=== PATIENT | female | born 1970 | race Caucasian/White ===

== ENCOUNTER 2016-08-17 07:39 | Inpatient (IN) | payer SELFPAY ==
[~2016-08-17] VITALS: Ht 167.6 cm; Wt 142.6 kg
[2016-08-17] VITALS (19 sets, daily range): BP systolic 126–242; BP diastolic 70–110; PULSE 63–120; RESP 20–28; TEMP 97–98.1; O2SAT 94–100
[~2016-08-17 07:39] MED LIST: LABE200T2 PO; NIFE1TAB85 PO; PREN0.01 PO
--- NOTE | 2016-08-17 07:53 | PD ---
HPI Chief Complaint: unresponsive in respiratory distress Time Seen by Provider: 07:43 Travel History International Travel<30 days: No Contact w/Intl Traveler<30days: No (unknown unknown) Traveled to known affect area: No (unknown) History of Present Illness HPI This is a 46-year-old female with unknown medical history other then the paramedics report inhaler and blood pressure medicine at home, who presents intubated after she was found in respiratory distress with decreased level of consciousness. When paramedics arrived they found the patient with O2 sats in the 40s. He reports the patient was obtunded and stated she had a GCS of 13. At that point she was not cooperative with oxygen or breathing treatments and they elected to intubate her. They report her end-tidal CO2 on initial intubation was above 50. After intubation her saturations increased into the mid 90s and her end-tidal CO2 has decreased to 40. No further history could be obtained. There was apparently a roommate in the house who stated that she has not been the same since she lost a child in the past. [facility] Social History Tobacco Use: Yes Allergies-Medications (Allergen,Severity, Reaction): Coded Allergies: UNOBTAINABLE (Unverified , 08/17/16) INTUBATED Review of Systems ROS Limitations: Clinical Condition, Intubated Physical Exam Narrative GENERAL: Obese disheveled-looking female who is intubated. SKIN: Focused skin assessment warm/dry. HEAD: Atraumatic. Normocephalic. EYES:No scleral icterus. No injection or drainage. ENT: No nasal bleeding or discharge. Mucous membranes pink and moist. ET tube in place. Respiratory therapist and myself assessed breathing and raise the tube to 24 cm. NECK: Trachea midline. No JVD. CARDIOVASCULAR: Regular rate and rhythm. No murmur appreciated. RESPIRATORY: Intubated. On the ventilator there were equal breath sounds bilaterally. GASTROINTESTINAL: Abdomen soft, obese, nondistended. MUSCULOSKELETAL: No obvious deformities. No clubbing. No cyanosis. No edema. NEUROLOGICAL: Intubated and sedated. Data Data Last Documented VS Vital Signs Date Time Temp Pulse Resp B/P Pulse Ox O2 Delivery O2 Flow Rate FiO2 08/17/16 08:28 96 Ventilator 08/17/16 08:13 119 20 242/110 08/17/16 07:45 100 08/17/16 07:44 97.0 Orders Complete Blood Count With Diff (08/17/16 07:54) Comprehensive Metabolic Panel (08/17/16 07:54) B-Type Natriuretic Peptide (08/17/16 07:54) Ckmb (Isoenzyme) Profile (08/17/16 07:54) Troponin I (08/17/16 07:54) Arterial Blood Gas (Abg) (08/17/16 07:54) Urinalysis - C+S If Indicated (08/17/16 07:54) Iv Access Insert/Monitor (08/17/16 07:54) Ecg Monitoring (08/17/16 07:54) Oximetry (08/17/16 07:54) Oxygen Administration (08/17/16 07:54) Chest, Single Ap (08/17/16 07:54) Sodium Chloride 0.9% Flush (Ns Flush) (08/17/16 08:00) Ct Brain W/O Iv Contrast(Rout) (08/17/16 07:54) Urinary Catheter Insert/Apply (08/17/16 07:54) Ed Urine Pregnancytest Poc (08/17/16 07:54) Drug Screen, Random Urine (08/17/16 07:54) Alcohol (Ethanol) (08/17/16 07:54) Salicylates (Aspirin) (08/17/16 07:54) Tylenol (Acetaminophen) (08/17/16 07:54) Propofol 1000 Mg/100 Ml Inj (Diprivan 10 (08/17/16 08:00) ^ Infusion (08/17/16 07:54) RASS (08/17/16 07:54) Neurological Rass Scale DIVYA.Q2H (08/17/16 07:54) Urine Culture (08/17/16 08:00) Esmolol Drip Inj Premix (Brevibloc Drip (08/17/16 09:30) CKMB (08/17/16 07:55) CKMB% (08/17/16 07:55) Labetalol Inj (Trandate Inj) (08/17/16 09:45) Labs Laboratory Tests Test 08/17/16 08/17/16 08/17/16 07:55 08:00 08:30 White Blood Count 15.2 TH/MM3 Red Blood Count 6.14 MIL/MM3 Hemoglobin 18.1 GM/DL Hematocrit 55.6 % Mean Corpuscular Volume 90.6 FL Mean Corpuscular Hemoglobin 29.6 PG Mean Corpuscular Hemoglobin 32.6 % Concent Red Cell Distribution Width 14.8 % Platelet Count 196 TH/MM3 Mean Platelet Volume 11.8 FL Neutrophils (%) (Auto) 70.0 % Lymphocytes (%) (Auto) 22.8 % Monocytes (%) (Auto) 4.5 % Eosinophils (%) (Auto) 1.7 % Basophils (%) (Auto) 1.0 % Neutrophils # (Auto) 10.6 TH/MM3 Lymphocytes # (Auto) 3.5 TH/MM3 Monocytes # (Auto) 0.7 TH/MM3 Eosinophils # (Auto) 0.3 TH/MM3 Basophils # (Auto) 0.1 TH/MM3 CBC Comment DIFF FINAL Differential Comment Sodium Level 139 MEQ/L Potassium Level 5.4 MEQ/L Chloride Level 106 MEQ/L Carbon Dioxide Level 21.2 MEQ/L Anion Gap 12 MEQ/L Blood Urea Nitrogen 37 MG/DL Creatinine 2.19 MG/DL Estimat Glomerular Filtration 24 ML/MIN Rate Random Glucose 290 MG/DL Calcium Level 10.1 MG/DL Total Bilirubin 0.5 MG/DL Aspartate Amino Transf 42 U/L (AST/SGOT) Alanine Aminotransferase 27 U/L (ALT/SGPT) Alkaline Phosphatase 101 U/L Total Creatine Kinase 117 U/L Creatine Kinase MB 1.3 NG/ML Troponin I 0.02 NG/ML B-Type Natriuretic Peptide 286 PG/ML Total Protein 7.8 GM/DL Albumin 3.7 GM/DL Salicylates Level LESS THAN 1.7 MG/DL Acetaminophen Level LESS THAN 2.0 MCG/ML Ethyl Alcohol Level LESS THAN 3 MG/DL Urine Color YELLOW Urine Turbidity HAZY Urine pH 8.0 Urine Specific [place] 1.021 Urine Protein GREATER THAN 600 mg/dL Urine Glucose (UA) 300 mg/dL Urine Ketones NEG mg/dL Urine Occult Blood MOD Urine Nitrite NEG Urine Bilirubin NEG Urine Urobilinogen LESS THAN 2.0 MG/DL Urine Leukocyte Esterase NEG Urine RBC 28 /hpf Urine WBC 18 /hpf Urine Squamous Epithelial 3 /hpf Cells Urine Transitional Epithelial <1 /hpf Cells Urine Bacteria RARE /hpf Microscopic Urinalysis Comment CULTURE INDICATED Urine Opiates Screen NEG Urine Barbiturates Screen NEG Urine Amphetamines Screen NEG Urine Benzodiazepines Screen NEG Urine Cocaine Screen NEG Urine Cannabinoids Screen NEG Blood Gas Puncture Site RT RADIAL Blood Gas Patient Temperature 98.6 Blood Gas HCO3 24 mmol/L Blood Gas Base Excess -4.6 mmol/L Blood Gas Oxygen Saturation 93 % Arterial Blood pH 7.12 Arterial Blood Partial 76 mmHg Pressure CO2 Arterial Blood Partial 108 mmHG Pressure O2 Arterial Blood Oxygen Content 24.9 Vol % Arterial Blood 2.1 % Carboxyhemoglobin Arterial Blood Methemoglobin 0.7 % Blood Gas Hemoglobin 19.0 G/DL Oxygen Delivery Device VENTILATOR Blood Gas Ventilator Setting AC14/500/PEEP8 Blood Gas Inspired Oxygen 100 % MDM Medical Decision Making Medical Screen Exam Complete: Yes Emergency Medical Condition: Yes Differential Diagnosis COPD exacerbation versus pneumonia versus overdose versus intracranial insult Narrative Course 46-year-old female brought in after found unresponsive at home. The patient was found to have an O2 sat in the 40s according to paramedics. She was not following commands and was intubated prior to arrival. We are having difficulty obtaining a blood pressure. A arterial line was placed which showed a blood pressure of 333/185. Esmolol order was initiated. She was given Trandate 20 mg I V times one dose while in CT scan. CT scan reveals a large posterior fossa bleed. Dr. Tam Booker, survey manager, was present in the ER when she went to the CT scan. He will take her emergently up to the [facility]. There is a call out to Dr. Bruce Garza, on-call neurosurgeon. The patient is in critical condition at this time. I discussed the findings on CT scan with the and brother. I told them that she is very sick and her prognosis at this point is poor. Critical Care Narrative Aggregate critical care time was 60 minutes. Time to perform other separately billable procedures was not included in the critical care time. My time did not include minutes spent treating any other patients simultaneously or on activities that did not directly contribute to the patient's treatment. The services I provided to this patient were to treat and/or prevent clinically significant deterioration that could result in: I provided critical care services requiring my management, as noted below: Chart data review, documentation time, medication orders and management, vital sign assessments/reviewing monitor data, ordering and reviewing lab tests, ordering and interpreting/reviewing x-rays and diagnostic studies, care of the patient and discussion of the patient with the admitting physicians. Diagnosis Primary Impression: large posterior fossa hemorrhage Additional Impressions: Hypertensive crisis [id number] kidney injury Hyperglycemia Admitting Information Admitting Physician Requests: Admit Harley Paredes MD August 17, 2016 07:53
[2016-08-17] MEDS ORDERED: PROPOFOL 1000 MG/100 ML INJ 100 ML IV SCH (08:00)
[2016-08-17 08:27] LABS: AUTOMATED NEUTROPHIL # 10.6 TH/MM3 (1.8-7.7); BASOPHIL # 0.1 TH/MM3 (0-0.2); EOSINOPHIL # 0.3 TH/MM3 (0-0.4); EOSINOPHIL % 1.7 % (0.0-4.0); HEMATOCRIT 55.6 % (35.0-46.0); HEMO FLAGS DIFF FINAL; LYMPH % 22.8 % (9.0-44.0); LYMPHOCYTE # 3.5 TH/MM3 (1.0-4.8); MEAN CELL VOLUME 90.6 FL (80.0-100.0); MEAN CORPUSCULAR HEMOGLOBIN 29.6 PG (27.0-34.0); MEAN CORPUSCULAR HGB CONC 32.6 % (32.0-36.0); MONO % 4.5 % (0.0-8.0); PLATELET COUNT 196 TH/MM3 (150-450); RED BLOOD COUNT 6.14 MIL/MM3 (4.00-5.30); RED CELL DISTRIBUTION WIDTH 14.8 % (11.6-17.2); WHITE BLOOD COUNT 15.2 TH/MM3 (4.0-11.0)
--- NOTE | 2016-08-17 08:45 | RADRPT ---
EXAM DATE/TIME: 08/17/2016 08:19 [facility] COMPARISON: No previous studies available for comparison. INDICATIONS : Short of breath. Evaluate tube placement. MEDICAL HISTORY : Unobtainable. SURGICAL HISTORY : Unobtainable. ENCOUNTER: Initial ACUITY: 1 day PAIN SCORE: Non-responsive. LOCATION: Bilateral chest FINDINGS: Portable AP view the chest demonstrates a normal-sized cardiac silhouette. Endotracheal tube is at th e aortic knob level measuring approximately 4 cm from the jorge. There is severe dense airspace cons olidation in the right mid and lower lung zone. No pleural effusion or pneumothorax is identified. Th ere may be mild interstitial or air space opacity in the upper lung zones bilaterally. Bones and soft tissues demonstrate no acute abnormality. CONCLUSION: Severe air space consolidation in the right lower lung zone with possible mild airspace opacity in th e upper lung zones bilaterally. This could represent an infectious process in the appropriate clinica l setting. Alternately, aspiration could have this appearance. Endotracheal tube is in appropriate po sition. Tyshawn Witt MD on August 17, 2016 at 8:36 Board Certified Radiologist. This report was verified electronically.
[2016-08-17 08:55] LABS: AMPHETAMINE, URINE NEG (NEG); BARBITURATES, URINE NEG (NEG); COCAINE, URINE NEG (NEG)
[2016-08-17 09:05] LABS: BACTERIA, URINE RARE /hpf; BLOOD, URINE MOD (NEG); GLUCOSE,URINE 300 mg/dL (NEG); KETONE, URINE NEG (NEG); NITRITE,URINE NEG (NEG); SQUAMOUS EPITHELIAL CELL URINE 3 /hpf (0-5); TRANSITIONAL EPI CELLS, URINE <1 /hpf; URINE COLOR YELLOW (YELLW/STRAW)
[2016-08-17 09:10] LABS: COMMENT (UR) CULTURE INDICATED; CULTURE IF INDICATED CULTURE INDICATED
[2016-08-17 09:22] LABS: ALKALINE PHOSPHATASE 101 U/L (45-117); ALT (GPT) 27 U/L (10-53); ANION GAP 12 MEQ/L (5-15); AST (GOT) 42 U/L (15-37); BICARBONATE 21.2 MEQ/L (21.0-32.0); BLOOD UREA NITROGEN 37 MG/DL (7-18); CHLORIDE 106 MEQ/L (98-107); CREATINE KINASE 117 U/L (26-192); GLOMERULAR FILTRATION RATE 24 ML/MIN (>89); SODIUM (NA) 139 MEQ/L (136-145); TOTAL BILIRUBIN ADULT 0.5 MG/DL (0.2-1.0)
[2016-08-17 09:26] LABS: ACETAMINOPHEN LESS THAN 2.0 MCG/ML (10.0-30.0); POTASSIUM 5.4 MEQ/L (3.5-5.1)
[2016-08-17 09:28] LABS: BLOOD GAS BASE EXCESS -4.6 mmol/L (-2-2); BLOOD GAS CARBOXYHEMOGLOBIN 2.1 % (0-4); BLOOD GAS HCO3 24 mmol/L (22-26); BLOOD GAS METHEMOGLOBIN 0.7 % (0-2); BLOOD GAS O2 HGB SATURATION 93 % (90-100); BLOOD GAS OXYGEN CONTENT 24.9 Vol % (12.0-20.0); BLOOD GAS PCO2 76 mmHg (38-42); BLOOD GAS PO2 108 mmHG (61-120); CRITICAL VALUE YES; OXYGEN DEVICE VENTILATOR; TEMP CORR TO 98.6
[2016-08-17 09:29] LABS: DRAW SITE RT RADIAL; FIO2 100 %; NUMBER OF ARTERIAL PUNCTURES 1; STAT YES; ULNAR PULSE PRESENT; VENT SETTINGS AC14/500/PEEP8
[2016-08-17] MEDS ORDERED: ESMOLOL DRIP INJ PREMIX 250 ML IV SCH (09:30)
[2016-08-17 09:38] LABS: CKMB 1.3 NG/ML (0.5-3.6)
[2016-08-17] MEDS ORDERED: LABETALOL HCL 100 MG/20 ML VIAL IV PUSH ONE ×2 (09:45→10:45)
[2016-08-17] MEDS: niCARdipine INJ 25 MG in SODIUM CHLOR 0.9% 250 ML INJ 250 ML IV SCH ×4 (10:00→21:20)
--- NOTE | 2016-08-17 10:01 | RADRPT ---
EXAM DATE/TIME: 08/17/2016 09:45 [facility] COMPARISON: No previous studies available for comparison. INDICATIONS : Altered mental status, hypoxia. RADIATION DOSE: 54.17 CTDIvol (mGy) MEDICAL HISTORY : Non-responsive. SURGICAL HISTORY : Non-responsive. ENCOUNTER: Initial ACUITY: 1 day PAIN SCALE: Non-responsive LOCATION: Bilateral head TECHNIQUE: Multiple contiguous axial images were obtained of the head. Using automated exposure control and adj ustment of the mA and/or kV according to patient size, radiation dose was kept as low as reasonably a chievable to obtain optimal diagnostic quality images. FINDINGS: CEREBRUM: Acute blood products fill the occipital horns and the third ventricle. Ventricles are mildly distende d. There are areas of low-density in the basal ganglia bilaterally. No mass lesion or midline shift i s present. There is effacement of the perimesencephalic cisterns. POSTERIOR FOSSA: There is an intraparenchymal hemorrhage in the central and right aspect of the cerebellum in the post erior fossa measuring approximately 5.4 x 4 cm. There is extension into the fourth ventricle. The cer ebellar tonsils extend slightly below the plane of foramen magnum. EXTRACRANIAL: There is mild mucoperiosteal thickening in the sphenoid sinus. SKULL: The calvaria is intact. No evidence of skull fracture. CONCLUSION: 1. There is acute intraparenchymal hemorrhage in the right cerebellum measuring approximately 5.4 x 4 centimeters. The blood products extend into the ventricular system causing mild dilatation of the ve ntricles. 2. Mass effect from the posterior fossa hemorrhage results in local mass effect and likely upward tra nstentorial herniation and some degree of tonsillar herniation. These findings were relayed to Dr. Paredes via telephone at 9: 58 AM. Tyshawn Witt MD on August 17, 2016 at 9:53 Board Certified Radiologist. This report was verified electronically.
[2016-08-17] MEDS ORDERED: ATROPINE SULFATE 1 MG/ML VIAL ONE (10:26)
[2016-08-17] MEDS ORDERED: LACTATED RINGER'S 1000 ML INJ 1,000 ML IV ONE (10:37)
[2016-08-17] MEDS ORDERED: PROPOFOL 200 MG/20 ML AMP IV ONE (10:37)
[2016-08-17] MEDS ORDERED: SODIUM CHLORID 0.9% 500 ML INJ 500 ML IV ONE (10:37)
[2016-08-17] MEDS: SODIUM CHLOR 0.9% 1000 ML INJ 1,000 ML IV SCH ×2 (10:39→22:34)
[2016-08-17] MEDS ORDERED: DEXTROSE 50% IN WATER 50 ML VIAL(D50) IV PUSH PRN (10:45)
[2016-08-17] MEDS ORDERED: CHLORHEXIDINE GLUCONATE 2 % 1 PACK (2 CLOTHS) TOP PRN (10:45)
[2016-08-17] MEDS ORDERED: NOREPINEPHRINE INJ 4 MG in SODIUM CHLOR 0.9% 250 ML INJ 246 ML IV SCH (10:45)
[2016-08-17] MEDS ORDERED: ONDANSETRON HCL 4 MG/2 ML VIAL IV PRN (10:45)
[2016-08-17] MEDS ORDERED: 3% SALINE INJ 500 ML IV ONE (10:45)
[2016-08-17] MEDS ORDERED: TERBUTALINE INJ 1 MG/ML AMP SQ PRN (10:45)
[2016-08-17] MEDS ORDERED: hydrALAZINE HCL 20 MG/ML VIAL IV PUSH ONE (10:45)
[2016-08-17] MEDS ORDERED: MISCELLANEOUS NURSING INFORMATION XX SCH (10:45)
--- NOTE | 2016-08-17 10:55 | HHI.HP ---
[facility] Service Critical Care Medicine Primary Care Physician Unknown Admission Diagnosis large posterior fossa hemmorhage, hypertensive emergency Diagnosis: Chief Complaint: altered mental status Travel History International Travel<30 Days: No Contact w/Intl Traveler <30 Da: No (unknown unknown) Traveled to Known Affected Are: No (unknown) History of Present Illness This is a 46yF with history of "thyroid problems" and hypertension per her prior records from 2013. She presents after her family called 911 when they found her unresponsive this morning. Per EMS, her GCS was 3. She was intubated on scene. She arrives to the emergency department with a blood pressure of 330s/ 220s. Head CT demonstrates large right cerebellar intraparenchymal hemorrhage with extension into the ventricular system and early posterior fossa herniation. The patient is unresponsive and additional history is unobtainable. Review of Systems ROS Limitations: Clinical Condition, Unresponsive Past Family Social History Allergies: Coded Allergies: UNOBTAINABLE (Unverified , 08/17/16) INTUBATED Past Medical History per prior admissions, history of "thyroid disorder" and hypertension Past Surgical History unknown and unobtainable secondary to the clinical condition of the patient. Reported Medications unknown and unobtainable secondary to the clinical condition of the patient. Active Ordered Medications See MAR Family History unknown and unobtainable secondary to the clinical condition of the patient. Social History unknown and unobtainable secondary to the clinical condition of the patient. Physical Exam Vital Signs Vital Signs Date Time Temp Pulse Resp B/P Pulse Ox O2 Delivery O2 Flow Rate FiO2 08/17/16 08:28 96 Ventilator 08/17/16 08:28 96 08/17/16 08:13 119 20 242/110 95 08/17/16 07:48 Ventilator 08/17/16 07:45 94 100 08/17/16 07:44 97.0 120 96 Physical Exam GENERAL: Middle-aged female, lying in bed, intubated, unresponsive, critically ill HEENT: Pupils 2 mm, sluggishly reactive, conjugate. Normocephalic. Atraumatic. Mucous membranes are moist NECK: Trachea is midline. There is no JVD. CHEST: Endotracheal tube in place. Equal chest rise. Clear to auscultation. CARDIOVASCULAR: Normal rate, regular rhythm. Sinus by telemetry. Initial blood pressure my evaluation as 312/206 ABDOMEN: Obese, soft, nontender, nondistended. No guarding. MUSCULOSKELETAL: Distal pulses 2+. No peripheral edema. NEUROLOGICAL: RASS -5. GCS 3. Pupils as above. Laboratory Laboratory Tests Test 08/17/16 08/17/16 08/17/16 07:55 08:00 08:30 White Blood Count 15.2 Red Blood Count 6.14 Hemoglobin 18.1 Hematocrit 55.6 Mean Corpuscular Volume 90.6 Mean Corpuscular Hemoglobin 29.6 Mean Corpuscular Hemoglobin 32.6 Concent Red Cell Distribution Width 14.8 Platelet Count 196 Mean Platelet Volume 11.8 Neutrophils (%) (Auto) 70.0 Lymphocytes (%) (Auto) 22.8 Monocytes (%) (Auto) 4.5 Eosinophils (%) (Auto) 1.7 Basophils (%) (Auto) 1.0 Neutrophils # (Auto) 10.6 Lymphocytes # (Auto) 3.5 Monocytes # (Auto) 0.7 Eosinophils # (Auto) 0.3 Basophils # (Auto) 0.1 CBC Comment DIFF FINAL Differential Comment Sodium Level 139 Potassium Level 5.4 Chloride Level 106 Carbon Dioxide Level 21.2 Anion Gap 12 Blood Urea Nitrogen 37 Creatinine 2.19 Estimat Glomerular Filtration 24 Rate Random Glucose 290 Calcium Level 10.1 Total Bilirubin 0.5 Aspartate Amino Transf 42 (AST/SGOT) Alanine Aminotransferase 27 (ALT/SGPT) Alkaline Phosphatase 101 Total Creatine Kinase 117 Creatine Kinase MB 1.3 Troponin I 0.02 B-Type Natriuretic Peptide 286 Total Protein 7.8 Albumin 3.7 Salicylates Level LESS THAN 1.7 Acetaminophen Level LESS THAN 2.0 Ethyl Alcohol Level LESS THAN 3 Urine Color YELLOW Urine Turbidity HAZY Urine pH 8.0 Urine Specific [place] 1.021 Urine Protein GREATER THAN 600 Urine Glucose (UA) 300 Urine Ketones NEG Urine Occult Blood MOD Urine Nitrite NEG Urine Bilirubin NEG Urine Urobilinogen LESS THAN 2.0 Urine Leukocyte Esterase NEG Urine RBC 28 Urine WBC 18 Urine Squamous Epithelial 3 Cells Urine Transitional Epithelial <1 Cells Urine Bacteria RARE Microscopic Urinalysis Comment CULTURE INDICATED Urine Opiates Screen NEG Urine Barbiturates Screen NEG Urine Amphetamines Screen NEG Urine Benzodiazepines Screen NEG Urine Cocaine Screen NEG Urine Cannabinoids Screen NEG Blood Gas Puncture Site RT RADIAL Blood Gas Patient Temperature 98.6 Blood Gas HCO3 24 Blood Gas Base Excess -4.6 Blood Gas Oxygen Saturation 93 Arterial Blood pH 7.12 Arterial Blood Partial 76 Pressure CO2 Arterial Blood Partial 108 Pressure O2 Arterial Blood Oxygen Content 24.9 Arterial Blood 2.1 Carboxyhemoglobin Arterial Blood Methemoglobin 0.7 Blood Gas Hemoglobin 19.0 Oxygen Delivery Device VENTILATOR Blood Gas Ventilator Setting AC14/500/PEEP8 Blood Gas Inspired Oxygen 100 Date/Time Procedure Status Source Growth 08/17/16 08:00 Urine Culture Received Urine Clean Catch Pending Result Diagram: 08/17/16 0755 08/17/16 0755 Imaging Last Impressions Head CT 08/17/16 0754 Signed Impressions: Service Date/Time: Wednesday, August 17, 2016 09:45 - CONCLUSION: 1. There is acute intraparenchymal hemorrhage in the right cerebellum measuring approximately 5.4 x 4 centimeters. The blood products extend into the ventricular system causing mild dilatation of the ventricles. 2. Mass effect from the posterior fossa hemorrhage results in local mass effect and likely upward transtentorial herniation and some degree of tonsillar herniation. These findings were relayed to Dr. Paredes via telephone at 9: 58 AM. Tyshawn Witt MD Chest X-Ray 08/17/16 0754 Signed Impressions: Service Date/Time: Wednesday, August 17, 2016 08:19 - CONCLUSION: Severe air space consolidation in the right lower lung zone with possible mild airspace opacity in the upper lung zones bilaterally. This could represent an infectious process in the appropriate clinical setting. Alternately, aspiration could have this appearance. Endotracheal tube is in appropriate position. Tyshawn Witt MD Neck CTA 08/17/16 0000 Signed Impressions: Service Date/Time: Wednesday, August 17, 2016 10:50 - CONCLUSION: 1. No significant abnormality is identified in the neck arterial vasculature. 2. Right pleural effusion with adjacent compressive atelectasis and/or consolidation. Tyshawn Witt MD Head CTA 08/17/16 0000 Signed Impressions: Service Date/Time: Wednesday, August 17, 2016 10:50 - CONCLUSION: No aneurysm or acute intracranial vascular abnormality is identified. Please refer to noncontrast head CT for description of the posterior fossa and ventricular blood products. Tyshawn Witt MD Assessment and Plan Assessment and Plan Assessment: 46yF with large posterior fossa intra-parenchymal hemorrhage with extension into the ventricles and evidence of upwards tentorial herniation. She also has associated organ dysfunction including hypertensive emergency, acute kidney injury. Her ICH score is 5, predicting essentially 100% mortality rate. However, given that her pupils are reactive, and her young age, I have spoken with Dr. Garza, and we are planning to emergently decompress her posterior fossa. I actively controlled her blood pressure to a goal SBP < 140. She is very critically ill at this time. Likely her prognosis will be poor, but for now our goals are aggressive. The family has been updated. Plan by systems: Neurologic: Large right cerebellar intraparenchymal hemorrhage Status post decompressive craniectomy 08/17 Frequent neuro checks Hyperosmolar therapy Elevated Head of bed Avoidance of hypercarbia and hypoxia 3% at 3 cc an hour Serial sodium and osmolality Neurosurgery: Dr. Garza Respiratory: Acute hypoxic and hypercarbic respiratory failure Does not meet SBT criteria given intracranial hemorrhage and elevated ICP Wean FiO2 for goal SPO2 greater than 92% Avoid hypercarbia, hypoxia End-tidal CO2 monitoring Vent bundle Nebs Cardiovascular: Hypertensive emergency Nicardipine, labetalol, hydralazine as needed for goal SBP less than 140 Renal: Acute kidney injury -- Strict I/Os Maintenance fluids to improve hypovolemia FEN/GI: Intravascular volume depletion Nothing by mouth Normal saline at 84 cc an hour Hold on ICU electrolyte protocol given renal function. We will likely institute this if her renal function improves. Heme/ID: No infectious etiology suspected this time. Daily CBC. Endocrine: Hyperglycemia of critical illness -- SSI, medium scale, every 6 Prophylaxis: GI Prophylaxis Protonix IV every 24 hours DVT Prophylaxis -- SCDs Holding pharmacologic DVT prophylaxis in the setting of acute head bleed Lines: Radial arterial line placed emergency department 08/[address] central line 08/17 for hypertonic saline Lopez Dispo: She went to the ICU. She remains critically ill. This patient remains critically ill with one or more organ systems which are or may become a threat to life. I have spent in excess of 116 minutes discontinuously in the care and management of this patient. This time is exclusive of procedures, and includes, but is not limited to, evaluation of the patient, review of the medical record, discussions with family, consultants, nursing staff, or respiratory therapy, and documentation in the medical record. Code Status Full code Mauricio Reynolds MD August 17, 2016 10:55
[2016-08-17 10:56] LABS: APTT (PATIENT) 26.6 SEC (24.3-30.1); PROTHROMBIN TIME - PATIENT 11.2 SEC (9.8-11.6)
[2016-08-17] MEDS ORDERED: GELFOAM SIZE 100 ONE (11:26)
[2016-08-17] MEDS ORDERED: LIDOCAINE 1%/EPINEPHrine 1:100,000 SOLN 50 ML VIAL ONE (11:26)
[2016-08-17] MEDS ORDERED: THROMBIN (TOPICAL) 5,000 UNIT VIAL ONE (11:26)
[2016-08-17] MEDS ORDERED: GENTAMICIN SULFATE 80 MG/2 ML VIAL ONE (11:27)
[2016-08-17] MEDS ORDERED: VANCOMYCIN HCL 1000 MG VIAL ONE (11:29)
[2016-08-17] MEDS ORDERED: IODIXANOL 320 MG/ML 10 ML VIAL (for Rad CT) IV ONE (11:32)
--- NOTE | 2016-08-17 11:37 | RADRPT ---
EXAM DATE/TIME: 08/17/2016 10:50 [facility] COMPARISON: No previous studies available for comparison. INDICATIONS : Abnormal CT, intracranial hemorrhage. IV CONTRAST: 50 cc Visipaque (iodixanol) IV ; Cumulative dose for multiple exams. RADIATION DOSE: 28.65 CTDIvol (mGy) ; Combined studies MEDICAL HISTORY : Non-responsive. SURGICAL HISTORY : Non-responsive. ENCOUNTER: Initial ACUITY: 1 day PAIN SCALE: Non-responsive LOCATION: Bilateral head TECHNIQUE: Volumetric scanning was performed using a multi-row detector CT scanner. The data was post processed with a variety of visualization algorithms including full volume maximum intensity projection, multi -planar sliding thin slab reformation, curved planar reformation, and surface rendering techniques. Using automated exposure control and adjustment of the mA and/or kV according to patient size, radiat ion dose was kept as low as reasonably achievable to obtain optimal diagnostic quality images. FINDINGS: The anterior circulation demonstrates normal appearance to the internal carotid arteries bilaterally. There is mild atherosclerotic disease of the cavernous ICAs bilaterally. A1 segments are symmetric. More distal anterior cerebral arteries demonstrate no acute finding. Middle cerebral arteries are sym metric. No aneurysm is seen. Posterior circulation demonstrates codominant vertebral arteries. Basilar artery demonstrates no abno rmality. There is no aneurysm. Posterior cerebral arteries are mildly attenuated but otherwise within normal limits. CONCLUSION: No aneurysm or acute intracranial vascular abnormality is identified. Please refer to noncontrast hea d CT for description of the posterior fossa and ventricular blood products. Tyshawn Witt MD on August 17, 2016 at 11:31 Board Certified Radiologist. This report was verified electronically.
--- NOTE | 2016-08-17 11:40 | RADRPT ---
EXAM DATE/TIME: 08/17/2016 10:50 [facility] COMPARISON: No previous studies available for comparison. INDICATIONS : Abdnormal CT, intracranial hemorrhage. IV CONTRAST: 50 cc Visipaque (iodixanol) IV ; Cumulative dose for multiple exams. RADIATION DOSE: 28.65 CTDIvol (mGy) ; Combined studies MEDICAL HISTORY : Non-responsive. SURGICAL HISTORY : Non-responsive. ENCOUNTER: Initial ACUITY: 1 day PAIN SCALE: Non-responsive LOCATION: Bilateral neck Elevated flow velocities and ICA/CCA ratios have been found to correlate with increased degrees of vessel stenosis, calculated as percentage of diameter relative to a normal segment of distal ICA/CCA. TECHNIQUE: Volumetric scanning was performed using a multirow detector CT scanner. The data was post processed with a variety of visualization algorithms including full-volume maximum intensity projection, multip lanar sliding thin-slab reformation, curved-planar reformation, and surface-rendering techniques. Us ing automated exposure control and adjustment of the mA and/or kV according to patient size, radiatio n dose was kept as low as reasonably achievable to obtain optimal diagnostic quality images. FINDINGS: There is mild atherosclerotic plaque at the origin of the left common carotid artery. Otherwise, escudero tid arteries demonstrate no significant atherosclerotic disease. Internal carotid arteries are within normal limits without significant stenosis. Vertebral arteries have a symmetric size and demonstrate no occlusion or dissection. There is a right pleural effusion with adjacent atelectasis and/or consolidation. Patient is intubate d and nasogastric tube is present. The thyroid gland is mildly enlarged and heterogeneous. CONCLUSION: 1. No significant abnormality is identified in the neck arterial vasculature. 2. Right pleural effusion with adjacent compressive atelectasis and/or consolidation. Tyshawn Witt MD on August 17, 2016 at 11:36 Board Certified Radiologist. This report was verified electronically.
--- NOTE | 2016-08-17 11:52 | RADRPT ---
EXAM DATE/TIME: 08/17/2016 11:22 [facility] COMPARISON: CHEST SINGLE AP, August 17, 2016, 8:19. INDICATIONS : Evaluate for central line placement. MEDICAL HISTORY : Unobtainable. SURGICAL HISTORY : Unobtainable. ENCOUNTER: Subsequent ACUITY: 1 day PAIN SCORE: Non-responsive. LOCATION: Bilateral chest FINDINGS: 2 AP views of the chest demonstrate a left subclavian central line with distal tip in the SVC. No pne umothorax is visualized. There is severe airspace consolidation in the right lower lung zone. Nasogas tric tube courses beyond the GE junction. CONCLUSION: Left subclavian central line distal tip in the SVC without pneumothorax. Otherwise, stable exam. Tyshawn Witt MD on August 17, 2016 at 11:49 Board Certified Radiologist. This report was verified electronically.
[2016-08-17 12:13] LABS: BLOOD GAS BASE EXCESS -5.6 mmol/L (-2-2); BLOOD GAS CARBOXYHEMOGLOBIN 1.5 % (0-4); BLOOD GAS HCO3 20 mmol/L (22-26); BLOOD GAS METHEMOGLOBIN 0.9 % (0-2); BLOOD GAS O2 HGB SATURATION 97 % (90-100); BLOOD GAS OXYGEN CONTENT 23.3 Vol % (12.0-20.0); BLOOD GAS PCO2 43 mmHg (38-42); BLOOD GAS PO2 299 mmHg (61-120); BLOOD GAS TOTAL HGB 16.5 G/DL (12.0-16.0); TEMP CORR TO 98.6
[2016-08-17 12:17] LABS: CRITICAL VALUE YES; DRAW SITE ART LINE; FIO2 100 %; OXYGEN DEVICE VENTILATOR; STAT NO; VENT SETTINGS AC 28/500/PEEP8
--- NOTE | 2016-08-17 15:35 | PD.PROCEDR ---
Procedure Note Procedure Central Line Procedure Note Left subclavian 7 Monegasque triple lumen catheter Diagnosis: Intracerebral hemorrhage Indications: Need for hypertonic saline administration Consent: Consent is deemed emergent or medically necessary Anesthesia: None Description of the Procedure: The patient was placed in the supine, mild- Trendelenburg position. The area was prepped and draped sterilely. A 19g needle was inserted under negative pressure aspiration and dark venous blood was obtained. A guidewire was inserted easily without resistance. A small incision was made using a #11 blade. Using a modified Seldinger technique, the dilator and 7 Monegasque, 20 cm catheter were advanced over the guidewire without resistance. All ports were aspirated and flushed, and had brisk blood return. The line was secured at 20 cm at the skin using 2-0 silk interrupted sutures. A Biopatch and Transparent sterile dressing were applied. There were no immediate complications noted. There was minimal EBL. The patient tolerated the procedure well. Ultrasound guidance was not used for this procedure A Chest x-ray has been ordered. I personally performed the procedure. Mauricio Reynolds MD August 17, 2016 15:35
[2016-08-17] MEDS: RESP: ALBUTEROL 2.5 MG/IPRATROPIUM 0.5 MG NEB (SCH) INH ×3 (15:39→21:06)
[2016-08-17] MEDS ORDERED: fentaNYL CITRATE 250 MCG/5 ML AMP ONE (16:58)
[2016-08-17] MEDS ORDERED: MIDAZOLAM HCL 2 MG/2 ML VIAL ONE (16:58)
[2016-08-17] MEDS: hydrALAZINE HCL 20 MG/ML VIAL IV PUSH PRN ×5 (17:10→23:25)
[2016-08-17] MEDS: LABETALOL HCL 100 MG/20 ML VIAL IV PUSH PRN ×3 (17:20→23:20)
[2016-08-17 17:59] LABS: BLOOD GAS BASE EXCESS -5.1 mmol/L (-2-2); BLOOD GAS CARBOXYHEMOGLOBIN 1.3 % (0-4); BLOOD GAS HCO3 20 mmol/L (22-26); BLOOD GAS O2 HGB SATURATION 96 % (90-100); BLOOD GAS OXYGEN CONTENT 20.2 Vol % (12.0-20.0); BLOOD GAS PO2 110 mmHg (61-120); BLOOD GAS TOTAL HGB 14.9 G/DL (12.0-16.0); CRITICAL VALUE NO; DRAW SITE ART LINE; FIO2 70 %; OXYGEN DEVICE VENTILATOR; STAT NO; TEMP CORR TO 98.6; VENT SETTINGS AC 28/500/PEEP8
[2016-08-17] MEDS: INSULIN NovoLIN REGULAR SUPPLEMENTAL SCALE SQ SCH (18:00)
[2016-08-17] MEDS: MANNITOL 12.5 GM/50 ML VIAL IV SCH (18:00)
[2016-08-17 18:03] LABS: BLOOD GAS PCO2 40 mmHg (38-42)
[2016-08-17] MEDS: CHLORHEXIDINE 0.12% (ORAL KIT) 15 ML CUP MT SCH (20:16)
[2016-08-17] MEDS: DOCUSATE SODIUM 50 MG/SENNA 8.6 MG TAB PO SCH (20:19)
[2016-08-17] MEDS: PROPOFOL 1000 MG/100 ML INJ 100 ML IV SCH (21:20)
--- NOTE | 2016-08-17 22:14 | PD.CONS ---
History of Present Illness Service Neurosurgery Consult Requested By Office Systems Technology Instructor-Dr. Booker Reason for Consult Intracranial hemorrhage Primary Care Physician Unknown Diagnoses: History of Present Illness 46-year-old female who apparently was in reasonably good health with no significant complaints until this morning when after initially doing well in the [facility], she became acutely unresponsive. She was intubated at the scene by EMS and brought to [facility] emergency room where she remained unresponsive. Initial blood pressure in the emergency room up to 330/ [address] scan of the head has revealed a large central to right cerebellar intracranial hemorrhage with intraventricular extension and mild to moderate ventriculomegaly. No seizure activity reported. Review of Systems Unable to obtain review of systems from the patient. According to the family she has had no significant medical complaints recently. Past Family Social History Allergies: Coded Allergies: Keflex (Verified Allergy, Severe, 02/02/14) Penicillin (Verified Allergy, Mild, Rash, 08/26/16) Grass (Verified Adverse Reaction, Severe, DIFFICULTY BREATHING, 02/02/14) Molds and Smuts (Verified Adverse Reaction, Severe, DIFFICULTY BREATHING, 02/02/14) Past Medical History Hypertension No significant cardiac or pulmonary disease Past Surgical History No major surgeries reported Reported Medications No prescription medications reported by the family. Social History History of tobacco use. Physical Exam Vital Signs Vital Signs Date Time Temp Pulse Resp B/P Pulse Ox O2 Delivery O2 Flow Rate FiO2 08/17/16 20:15 60 08/17/16 20:15 98 60 08/17/16 18:04 98 60 08/17/16 17:00 97.5 71 28 131/70 100 08/17/16 17:00 71 08/17/16 16:58 96 80 08/17/16 12:35 99 08/17/16 12:30 98 80 08/17/16 12:08 97 80 08/17/16 12:00 98.1 63 28 157/83 99 Manual Cuff/Auscultation 08/17/16 12:00 63 08/17/16 11:40 98 100 08/17/16 10:37 99 08/17/16 10:30 100 100 08/17/16 10:00 100 100 08/17/16 10:00 66 08/17/16 08:28 96 Ventilator 08/17/16 08:28 96 08/17/16 08:13 119 20 242/110 95 08/17/16 07:48 Ventilator 08/17/16 07:45 94 100 08/17/16 07:44 97.0 120 96 Physical Exam GENERAL: Moderately obese lady intubated, no intravenous sedation. SKIN: No rashes, ecchymoses or lesions. Cool and dry. HEAD: Atraumatic. Normocephalic. No scalp lacerations or edema. EYES: Mild conjunctival edema. Sclera nonicteric ENT: No epistaxis NECK: Trachea midline. No JVD or lymphadenopathy. Supple, no meningeal signs. CARDIOVASCULAR: Regular rate and rhythm without murmurs, gallops, or rubs. RESPIRATORY: Clear to auscultation. Breath sounds equal bilaterally. No wheezes , rales, or rhonchi. GASTROINTESTINAL: Abdomen soft, nondistended MUSCULOSKELETAL: Extremities without clubbing, cyanosis, or edema. No joint tenderness, effusion, or edema noted. NEUROLOGICAL: Unresponsive. No intravenous sedation given in proximity to the examination. She does not open her eyes spontaneously voice deep pain Does not follow commands Pupils 3 mm nonreactive Absent corneal and oculocephalic responses Minimal intermittent flexion right upper extremity to deep pain-not consistent with repetitive testing. Otherwise no response to deep pain all extremities Mild cough response Mckenzie's response absent bilateral No ankle clonus Laboratory Laboratory Tests Test 08/17/16 08/17/16 08/17/16 08/17/16 07:55 08:00 08:30 10:30 White Blood Count 15.2 Red Blood Count 6.14 Hemoglobin 18.1 Hematocrit 55.6 Mean Corpuscular Volume 90.6 Mean Corpuscular Hemoglobin 29.6 Mean Corpuscular Hemoglobin 32.6 Concent Red Cell Distribution Width 14.8 Platelet Count 196 Mean Platelet Volume 11.8 Neutrophils (%) (Auto) 70.0 Lymphocytes (%) (Auto) 22.8 Monocytes (%) (Auto) 4.5 Eosinophils (%) (Auto) 1.7 Basophils (%) (Auto) 1.0 Neutrophils # (Auto) 10.6 Lymphocytes # (Auto) 3.5 Monocytes # (Auto) 0.7 Eosinophils # (Auto) 0.3 Basophils # (Auto) 0.1 CBC Comment DIFF FINAL Differential Comment Sodium Level 139 140 Potassium Level 5.4 Chloride Level 106 Carbon Dioxide Level 21.2 Anion Gap 12 Blood Urea Nitrogen 37 Creatinine 2.19 Estimat Glomerular Filtration 24 Rate Random Glucose 290 Calcium Level 10.1 Total Bilirubin 0.5 Aspartate Amino Transf 42 (AST/SGOT) Alanine Aminotransferase 27 (ALT/SGPT) Alkaline Phosphatase 101 Total Creatine Kinase 117 Creatine Kinase MB 1.3 Troponin I 0.02 B-Type Natriuretic Peptide 286 Total Protein 7.8 Albumin 3.7 Salicylates Level LESS THAN 1.7 Acetaminophen Level LESS THAN 2.0 Ethyl Alcohol Level LESS THAN 3 Urine Color YELLOW Urine Turbidity HAZY Urine pH 8.0 Urine Specific [place] 1.021 Urine Protein GREATER THAN 600 Urine Glucose (UA) 300 Urine Ketones NEG Urine Occult Blood MOD Urine Nitrite NEG Urine Bilirubin NEG Urine Urobilinogen LESS THAN 2.0 Urine Leukocyte Esterase NEG Urine RBC 28 Urine WBC 18 Urine Squamous Epithelial 3 Cells Urine Transitional Epithelial <1 Cells Urine Bacteria RARE Microscopic Urinalysis Comment CULTURE INDICATED Urine Opiates Screen NEG Urine Barbiturates Screen NEG Urine Amphetamines Screen NEG Urine Benzodiazepines Screen NEG Urine Cocaine Screen NEG Urine Cannabinoids Screen NEG Blood Gas Puncture Site RT RADIAL Blood Gas Patient Temperature 98.6 Blood Gas HCO3 24 Blood Gas Base Excess -4.6 Blood Gas Oxygen Saturation 93 Arterial Blood pH 7.12 Arterial Blood Partial 76 Pressure CO2 Arterial Blood Partial 108 Pressure O2 Arterial Blood Oxygen Content 24.9 Arterial Blood 2.1 Carboxyhemoglobin Arterial Blood Methemoglobin 0.7 Blood Gas Hemoglobin 19.0 Oxygen Delivery Device VENTILATOR Blood Gas Ventilator Setting AC14/500/PEEP8 Blood Gas Inspired Oxygen 100 Prothrombin Time 11.2 Prothromb Time International 1.0 Ratio Activated Partial 26.6 Thromboplast Time Nasal Screen MRSA (PCR) MRSA NOT DETECTED Serum Osmolality 312 Blood Type A POSITIVE Antibody Screen NEGATIVE Blood Bank Comment Test 08/17/16 08/17/16 08/17/16 12:01 17:28 17:46 Blood Gas Puncture Site ART LINE ART LINE Blood Gas Patient Temperature 98.6 98.6 Blood Gas HCO3 20 20 Blood Gas Base Excess -5.6 -5.1 Blood Gas Oxygen Saturation 97 96 Arterial Blood pH 7.29 7.32 Arterial Blood Partial 43 40 Pressure CO2 Arterial Blood Partial 299 110 Pressure O2 Arterial Blood Oxygen Content 23.3 20.2 Arterial Blood 1.5 1.3 Carboxyhemoglobin Arterial Blood Methemoglobin 0.9 1.0 Blood Gas Hemoglobin 16.5 14.9 Oxygen Delivery Device VENTILATOR VENTILATOR Blood Gas Ventilator Setting AC AC 28/500/PEEP8 28/500/PEEP8 Blood Gas Inspired Oxygen 100 70 Sodium Level 145 Serum Osmolality 319 Date/Time Procedure Status Source Growth 08/17/16 08:00 Urine Culture Received Urine Clean Catch Pending Result Diagram: 08/17/16 0755 08/17/16 1728 Imaging 08/17/16 CT scan of the head and CT angiogram of the brain images reviewed by the undersigned. I agree with findings as noted below: Head CT 08/17/16 0754 Signed Impressions: Service Date/Time: Wednesday, August 17, 2016 09:45 - CONCLUSION: 1. There is acute intraparenchymal hemorrhage in the right cerebellum measuring approximately 5.4 x 4 centimeters. The blood products extend into the ventricular system causing mild dilatation of the ventricles. 2. Mass effect from the posterior fossa hemorrhage results in local mass effect and likely upward transtentorial herniation and some degree of tonsillar herniation. These findings were relayed to Dr. Paredes via telephone at 9: 58 AM. Tyshawn Witt MD Chest X-Ray 08/17/16 0754 Signed Impressions: Service Date/Time: Wednesday, August 17, 2016 08:19 - CONCLUSION: Severe air space consolidation in the right lower lung zone with possible mild airspace opacity in the upper lung zones bilaterally. This could represent an infectious process in the appropriate clinical setting. Alternately, aspiration could have this appearance. Endotracheal tube is in appropriate position. Tyshawn Witt MD Neck CTA 08/17/16 0000 Signed Impressions: Service Date/Time: Wednesday, August 17, 2016 10:50 - CONCLUSION: 1. No significant abnormality is identified in the neck arterial vasculature. 2. Right pleural effusion with adjacent compressive atelectasis and/or consolidation. Tyshawn Witt MD Head CTA 08/17/16 0000 Signed Impressions: Service Date/Time: Wednesday, August 17, 2016 10:50 - CONCLUSION: No aneurysm or acute intracranial vascular abnormality is identified. Please refer to noncontrast head CT for description of the posterior fossa and ventricular blood products. Tyshawn Witt MD Assessment and Plan Assessment and Plan Impression: 1. Large central to right cerebellar intracranial hemorrhage. Most likely related to hypertension 2. Hypertension Recommendations: Findings were discussed with client evaluator Discussed with the patient's family in the intensive surgical care unit. Options of observation and supportive care versus surgical intervention or ventriculostomy placement have all been discussed along with pros and cons and prognosis of each. Although she has very poor overall neurologic function and prognosis, due to her age and the lack of ischemic brainstem changes on CT scan images, it is felt most prudent to proceed with suboccipital craniotomy for evacuation of the cerebellar intracranial hemorrhage and placement of a ventriculostomy catheter. The procedure, indications, risks and possible complications of been fully discussed with the family. Consent has been reviewed signed and witnessed. They appear to understand all of the above. I have answered all of their questions. Bruce Garza MD August 17, 2016 22:14
--- NOTE | 2016-08-17 22:27 | PD.OP ---
Operative Report Date of Surgery: August 17, 2016 Preoperative Diagnosis: (1) Intracranial hemorrhage (2) Hypertensive crisis Large central to right cerebellar spontaneous intracranial hemorrhage Postoperative Diagnosis: (1) Intracranial hemorrhage (2) Hypertensive crisis Large central to right cerebellar spontaneous intracranial hemorrhage Procedure: 1. Bilateral suboccipital craniectomy, evacuation of intracranial hemorrhage 2. Right occipital bur hole for ventriculostomy placement Anesthesia: Gen. Surgeon: Bruce Garza [facility] Or Nursery Transplanter(s): Kriss Dailey Operation and Findings: Findings: Large central to right cerebellar hemorrhage with some consolidated clot. Procedure in detail Patient was brought into the operating room and general endotracheal anesthesia induced without difficulty. Lines were established by anesthesia Lopez catheter, and NICANOR hose and sequential compression devices were in place The patient was placed in the Yo 3 point head fixation device Patient was turned in prone position on the [facility] Solo table with the side bolsters and all extremities appropriately padded. With the undersigned maintaining control of the head and neck, the head was secured to the operating room table with the Yo adapter, with the neck flexed, allowing 3 fingerbreadths between the chin and chest. The spine position was checked with the intraoperative C-arm and felt to be satisfactory The back of the neck and head were shaved with clippers and sterilely prepped and draped Appropriate time-out procedure was performed with all personnel present and in agreement The initial incision was made approximately 2 fingerbreadths above in findings fingerbreadths medial to the tip of the ear on the left side and carried sharply down to the cranium. The switch crew supervisor was used to place a single bur hole and the dura was opened with a 15 blade knife and coagulated. The Codman ventriculostomy catheter was placed into the ventricle in a single pass with good return of slightly blood-tinged cerebrospinal fluid. The catheter was tunneled to the right occipital region and secured to the skin with nylon suture. Next, 1% Xylocaine with epinephrine was used for local infiltration over the second incision site which was made in the midline cervical occipital region from the external occipital protuberance down to the C3 spinous process. The exposure was continued in the midline avascular plane down to the tip of the C2 and C3 spinous process, the posterior arch of C1, and the suboccipital skull. The self-retaining retractors were placed. The fascia was incised just below the nuchal line with a cuff of tissue left intact for reapproximation of the muscle fascia. Subperiosteal elevation of the musculature and fascia away from the suboccipital region was completed with the small periosteal elevator. The TPS drill with an acorn bur was used to thin out the occipital bone circumferentially along each side of the suboccipital region extending just beneath the transverse sinus on the right and left and extending down to the posterior and lateral margins of the foramen magnum. The Kerrison rongeur was used to remove the residual bone along the posterior lateral occipital bone. The resulting bone flap was carefully lifted away from the dural with the thin ligament dissectors. The 15 blade knife was used to open the dura in a Y-shaped fashion extending from the posterolateral margin of the bilateral occipital decompression on each side down to the midline The brain was moderately tense upon removal of the bone flap and opening of the dura. The bipolar forceps were used to incise the posterior midline vermis down to the area of the hematoma. Once the hematoma cavity was entered, gentle suction and irrigation along with the Mcintyre dissectors was used to remove the hematoma with care taken not to disrupt the surrounding brain parenchyma. The bipolar forceps were used to control any residual bleeding along with temporary application of Gelfoam and thrombin. The region was well irrigated with antibiotic irrigation Bleeding was carefully controlled with the bipolar forceps Any bone bleeding was controlled with bone wax. There was no significant bleeding at the time of closure The closure was performed with 0 Vicryl interrupted for the deep and superficial fascia, with 3-0 Vicryl interrupted subcutaneous closure, isaac for the skin closure The patient was turned back into supine position on the recovery room stretcher with the undersigned maintaining control of the head and neck. The 3-point fixation device was removed The patient was taken to recovery room in stable condition All counts were correct at the end of the case Estimated blood loss was 100 cc Specimen of consolidated clot mixed with tissue from the central aspect of the hematoma cavity was sent to pathology for routine specimen. Bruce Garza MD August 17, 2016 22:27
[2016-08-18] VITALS (17 sets, daily range): BP systolic 130–137; BP diastolic 62–66; PULSE 68–77; RESP 18–28; TEMP 97.8–98.5; O2SAT 94–99
[2016-08-18] MEDS: hydrALAZINE HCL 20 MG/ML VIAL IV PUSH PRN ×6 (00:33→21:58)
[2016-08-18] MEDS: PROPOFOL 1000 MG/100 ML INJ 100 ML IV SCH ×11 (00:55→23:01)
[2016-08-18] MEDS: LABETALOL HCL 100 MG/20 ML VIAL IV PUSH PRN ×10 (01:55→23:11)
[2016-08-18] MEDS: niCARdipine INJ 25 MG in SODIUM CHLOR 0.9% 250 ML INJ 250 ML IV SCH ×9 (02:28→21:42)
[2016-08-18] MEDS: RESP: ALBUTEROL 2.5 MG/IPRATROPIUM 0.5 MG NEB (SCH) INH ×4 (02:52→20:41)
--- NOTE | 2016-08-18 05:22 | RADRPT ---
EXAM DATE/TIME: 08/18/2016 04:49 [facility] COMPARISON: CTA CAROTID ARTERIES W 3D RECON, August 17, 2016, 10:50. INDICATIONS : Post-op for bleed. RADIATION DOSE: 56.35 CTDIvol (mGy) MEDICAL HISTORY : Hypertension. Chronic obstructive pulmonary disease. Cardiovascular disease SURGICAL HISTORY : Craniotomy. ENCOUNTER: Subsequent ACUITY: 1 day PAIN SCALE: Non-responsive LOCATION: cranial TECHNIQUE: Multiple contiguous axial images were obtained of the head. Using automated exposure control and adj ustment of the mA and/or kV according to patient size, radiation dose was kept as low as reasonably a chievable to obtain optimal diagnostic quality images. FINDINGS: There is a left parietal ventriculostomy tube. Ventricular size has decreased since earlier examinati on. Remote lacunar infarcts present in the basal ganglia. Slight meniscectomy change. There is a partial occipital craniectomy with decreased size of previous hemorrhage in posterior leticia a. There still some ventricular hemorrhage within the third ventricle and lateral ventricles. Subarac hnoid hemorrhage around the brainstem again noted, slightly improved. There still some mass effect on the brainstem. CONCLUSION: 1. Placement of a left parietal ventriculostomy tube with its decrease in ventricular size since betty ier exam. 2. Partial suboccipital craniectomy with decrease in size of posterior fossa hematoma. Intraventricul ar and subarachnoid hemorrhage remain. Previous lacunar infarcts the basal ganglia have a similar lisa earance. Mart Mar MD on August 18, 2016 at 5:17 Board Certified Radiologist. This report was verified electronically.
[2016-08-18] MEDS: INSULIN NovoLIN REGULAR SUPPLEMENTAL SCALE SQ SCH ×4 (06:00→18:00)
[2016-08-18] MEDS: MANNITOL 12.5 GM/50 ML VIAL IV SCH ×4 (06:00→18:00)
[2016-08-18 06:04] LABS: MEAN CELL VOLUME 91.1 FL (80.0-100.0); MEAN CORPUSCULAR HEMOGLOBIN 29.9 PG (27.0-34.0); MEAN CORPUSCULAR HGB CONC 32.9 % (32.0-36.0); PLATELET COUNT 131 TH/MM3 (150-450); RED CELL DISTRIBUTION WIDTH 15.2 % (11.6-17.2); REVIEW FLAG FINAL; WHITE BLOOD COUNT 14.2 TH/MM3 (4.0-11.0)
[2016-08-18] MEDS: CHLORHEXIDINE GLUCONATE 2 % 1 PACK (2 CLOTHS) TOP SCH (06:06)
--- NOTE | 2016-08-18 06:18 | RADRPT ---
EXAM DATE/TIME: 08/18/2016 05:03 [facility] COMPARISON: CHEST SINGLE AP, August 17, 2016, 11:22. INDICATIONS : Evaluate lungs after respiratory failure. MEDICAL HISTORY : Chronic obstructive pulmonary disease. Hypertension SURGICAL HISTORY : None. ENCOUNTER: Subsequent ACUITY: 3 days PAIN SCORE: 7/10 LOCATION: Bilateral chest FINDINGS: A single view of the chest demonstrates endotracheal tube tip in satisfactory position. Nasogastric t ube enters stomach. Improved basilar airspace disease on the right since August 17. Minimal basilar opac ity persists bilaterally. No significant effusion. No pneumothorax. CONCLUSION: 1. Endotracheal tube and nasogastric tube in satisfactory position. Left central line tip in superior vena cava. Mart Mar MD on August 18, 2016 at 6:15 Board Certified Radiologist. This report was verified electronically.
[2016-08-18 06:29] LABS: BICARBONATE 19.1 MEQ/L (21.0-32.0); POTASSIUM 4.9 MEQ/L (3.5-5.1)
[2016-08-18] MEDS: CHLORHEXIDINE 0.12% (ORAL KIT) 15 ML CUP MT SCH ×2 (08:00→20:10)
[2016-08-18] MEDS ORDERED: SODIUM CHLOR 0.9% 1000 ML INJ 1,000 ML IV ONE (08:15)
--- NOTE | 2016-08-18 08:26 | HHI.CCPN ---
Subjective Remarks/Hospital Course Hospital Course: This is a 46yF with history of "thyroid problems" and hypertension per her prior records from 2013. She presents after her family called 911 when they found her unresponsive this morning. Per EMS, her GCS was 3. She was intubated on scene. She arrives to the emergency department with a blood pressure of 330s/ 220s. Head CT demonstrates large right cerebellar intraparenchymal hemorrhage with extension into the ventricular system and early posterior fossa herniation. The patient is unresponsive and additional history is unobtainable. Subjective: 08/18: s/p decompressive posterior fossa craniectomy yesterday. overnight severely hypertensive, requiring cardene, labetalol, hydralazine, and low dose propofol. best neuro exam for RN: weakly w/d lower extremities, pupils reactive , +cough. this morning, Cr significantly elevated, likely secondary to acute illness and contrast load. net +3L/24h. Objective Vital Signs Date Time Temp Pulse Resp B/P Pulse Ox O2 Delivery O2 Flow Rate FiO2 08/18/16 06:00 72 08/18/16 05:54 98 50 08/18/16 04:00 98.0 26 130/66 08/17/16 19:00 Mechanical Ventilator Intake and Output 08/17/16 08/17/16 08/18/16 08:00 16:00 00:00 Intake Total 1747 ml Output Total 555 ml Balance 1192 ml Result Diagram: 08/18/16 0525 08/18/16 0525 Other Results Laboratory Tests Test 08/17/16 08/17/16 08/17/16 08:30 12:01 17:46 Blood Gas Puncture Site RT RADIAL ART LINE ART LINE Blood Gas Patient Temperature 98.6 98.6 98.6 Blood Gas HCO3 24 mmol/L 20 mmol/L 20 mmol/L (22-26) (22-26) (22-26) Blood Gas Base Excess -4.6 mmol/L -5.6 mmol/L -5.1 mmol/L (-2-2) (-2-2) (-2-2) Blood Gas Oxygen Saturation 93 % (90-100) 97 % (90-100) 96 % (90-100) Arterial Blood pH 7.12 7.29 7.32 (7.380-7.420) (7.380-7.420) (7.380-7.420) Arterial Blood Partial 76 mmHg (38-42) 43 mmHg (38-42) 40 mmHg (38-42) Pressure CO2 Arterial Blood Partial 108 mmHG 299 mmHg 110 mmHg Pressure O2 (61-120) (61-120) (61-120) Arterial Blood Oxygen Content 24.9 Vol % 23.3 Vol % 20.2 Vol % (12.0-20.0) (12.0-20.0) (12.0-20.0) Arterial Blood 2.1 % (0-4) 1.5 % (0-4) 1.3 % (0-4) Carboxyhemoglobin Arterial Blood Methemoglobin 0.7 % (0-2) 0.9 % (0-2) 1.0 % (0-2) Blood Gas Hemoglobin 19.0 G/DL 16.5 G/DL 14.9 G/DL (12.0-16.0) (12.0-16.0) (12.0-16.0) Oxygen Delivery Device VENTILATOR VENTILATOR VENTILATOR Blood Gas Ventilator Setting AC14/500/PEEP8 AC AC 28/500/PEEP8 28/500/PEEP8 Blood Gas Inspired Oxygen 100 % 100 % 70 % Imaging Last Impressions Head CT 08/17/16 0754 Signed Impressions: Service Date/Time: Wednesday, August 17, 2016 09:45 - CONCLUSION: 1. There is acute intraparenchymal hemorrhage in the right cerebellum measuring approximately 5.4 x 4 centimeters. The blood products extend into the ventricular system causing mild dilatation of the ventricles. 2. Mass effect from the posterior fossa hemorrhage results in local mass effect and likely upward transtentorial herniation and some degree of tonsillar herniation. These findings were relayed to Dr. Paredes via telephone at 9: 58 AM. Tyshawn Witt MD Chest X-Ray 08/17/16 0754 Signed Impressions: Service Date/Time: Wednesday, August 17, 2016 08:19 - CONCLUSION: Severe air space consolidation in the right lower lung zone with possible mild airspace opacity in the upper lung zones bilaterally. This could represent an infectious process in the appropriate clinical setting. Alternately, aspiration could have this appearance. Endotracheal tube is in appropriate position. Tyshawn Witt MD Neck CTA 08/17/16 0000 Signed Impressions: Service Date/Time: Wednesday, August 17, 2016 10:50 - CONCLUSION: 1. No significant abnormality is identified in the neck arterial vasculature. 2. Right pleural effusion with adjacent compressive atelectasis and/or consolidation. Tyshawn Witt MD Head CTA 08/17/16 0000 Signed Impressions: Service Date/Time: Wednesday, August 17, 2016 10:50 - CONCLUSION: No aneurysm or acute intracranial vascular abnormality is identified. Please refer to noncontrast head CT for description of the posterior fossa and ventricular blood products. Tyshawn Witt MD Objective Remarks GENERAL: Middle-aged female, lying in bed, intubated, unresponsive, critically ill HEENT: Pupils 2 mm, sluggishly reactive, conjugate. Normocephalic. dressing to occiput. EVD in place, sanguinous output, leveled at 5 cmh2o. Mucous membranes are moist NECK: Trachea is midline. There is no JVD. CHEST: Endotracheal tube in place. Equal chest rise. Clear to auscultation. etco2 20. left SC TLC clean and dry, dressing intact. CARDIOVASCULAR: Normal rate, regular rhythm. Sinus by telemetry. ABDOMEN: Obese, soft, nontender, nondistended. No guarding. MUSCULOSKELETAL: Distal pulses 2+. No peripheral edema. right radial arterial line in place, dressing intact. NEUROLOGICAL: RASS -5. GCS 3. Pupils as above. -corneals, - doll's eyes, - gag. + cough. no movement of extremities for me to painful stimuli. A/P Assessment and Plan Assessment: 46yF with large posterior fossa intra-parenchymal hemorrhage with extension into the ventricles and initial evidence of upwards tentorial herniation. She also has associated organ dysfunction including hypertensive emergency, acute kidney injury. Her ICH score is 5, predicting essentially 100 % mortality rate. She is now POD 1 s/p decompressive posterior fossa craniectomy. will continue to be aggressive for now. I have spoken with her and updated him that her prognosis is poor, and she may never wake up again. We will consult palliative care. Plan by systems: Neurologic: Large right cerebellar intraparenchymal hemorrhage Status post posterior fossa decompressive craniectomy 08/17 Frequent neuro checks Hyperosmolar therapy Elevated Head of bed Avoidance of hypercarbia and hypoxia 3% at 30 cc an hour Serial sodium and osmolality Neurosurgery: Dr. Garza Respiratory: Acute hypoxic and hypercarbic respiratory failure Does not meet SBT criteria given intracranial hemorrhage and cerebral edema Wean FiO2 for goal SPO2 greater than 92% Avoid hypercarbia, hypoxia --daily abg's. End-tidal CO2 monitoring Vent bundle Nebs Cardiovascular: Hypertensive emergency Nicardipine, labetalol, hydralazine as needed for goal SBP less than 140 Renal: Acute kidney injury- worsening. -- Strict I/Os 1L NS bolus -- increase Maintenance fluids to improve hypovolemia FEN/GI: Intravascular volume depletion Nothing by mouth Normal saline at 120 cc an hour Hold on ICU electrolyte protocol given renal function. We will likely institute this if her renal function improves. --start TF. Heme/ID: No infectious etiology suspected this time. Daily CBC. Endocrine: Hyperglycemia of critical illness -- SSI, medium scale, every 6 Prophylaxis: GI Prophylaxis Protonix IV every 24 hours DVT Prophylaxis -- SCDs Holding pharmacologic DVT prophylaxis in the setting of acute head bleed Lines: Radial arterial line placed emergency department 08/17 left SC tlc 08/17 Lopez Dispo: Remain in the ICU. She remains critically ill. This patient remains critically ill with one or more organ systems which are or may become a threat to life. I have spent in excess of 42 minutes discontinuously in the care and management of this patient. This time is exclusive of procedures, and includes, but is not limited to, evaluation of the patient, review of the medical record, discussions with family, consultants, nursing staff, or respiratory therapy, and documentation in the medical record. Mauricio Reynolds MD August 18, 2016 08:26
[2016-08-18] MEDS: DOCUSATE SODIUM 50 MG/SENNA 8.6 MG TAB PO SCH ×2 (09:00→20:10)
[2016-08-18] MEDS: PANTOPRAZOLE SODIUM 40 MG VIAL IV SCH (09:01)
[2016-08-18 09:47] LABS: BLOOD GAS BASE EXCESS -9.4 mmol/L (-2-2); BLOOD GAS CARBOXYHEMOGLOBIN 0.9 % (0-4); BLOOD GAS HCO3 15 mmol/L (22-26); BLOOD GAS METHEMOGLOBIN 1.1 % (0-2); BLOOD GAS O2 HGB SATURATION 98 % (90-100); BLOOD GAS OXYGEN CONTENT 18.6 Vol % (12.0-20.0); BLOOD GAS PCO2 30 mmHg (38-42); BLOOD GAS PO2 353 mmHg (61-120); BLOOD GAS TOTAL HGB 12.9 G/DL (12.0-16.0); TEMP CORR TO 98.6
[2016-08-18 09:48] LABS: CRITICAL VALUE YES; DRAW SITE ART LINE; FIO2 50 %; OXYGEN DEVICE VENTILATOR; STAT NO; VENT SETTINGS AC 26/500/PEEP8
[2016-08-18] MEDS: SODIUM CHLOR 0.9% 1000 ML INJ 1,000 ML IV SCH ×2 (09:49→20:09)
[2016-08-18] MEDS: 3% SALINE INJ 500 ML IV SCH (12:30)
--- NOTE | 2016-08-18 16:08 | EKG ---
Date Performed: 08/17/2016 Time Performed: 07:49:47 PTAGE: 46 years EKG: SINUS TACHYCARDIA NONSPECIFIC T-WAVE ABNORMALITY ABNORMAL RHYTHM ECG NO PREVIOUS TRACING DOCTOR: London Jurado Interpretating Date/Time 08/18/2016 16:06:35
--- NOTE | 2016-08-18 16:29 | HHI.NSPN ---
History Chief Complaint: intubated and sedated Interval History 46-year-old female presented to the emergency room 08/17/16, hypertensive crisis with blood pressure in the 330/[address] scan with large primarily right cerebellar intracranial hemorrhage 08/17/2016: Suboccipital craniectomy, evacuation cerebellar intracranial hemorrhage. Placement of external ventricular drain 08/18/16: Remains intubated. Pupils 3 mm minimally reactive. No response to deep pain all extremities. CT scan head with mild to moderate residual/ recurrent cerebellar hemorrhage, improved compared to preoperative. Exam Results Vital Signs Date Time Temp Pulse Resp B/P Pulse Ox O2 Delivery O2 Flow Rate FiO2 08/18/16 16:03 97 40 08/18/16 12:00 75 08/18/16 12:00 97.8 26 132/65 08/17/16 19:00 Mechanical Ventilator Intake and Output 08/17/16 08/17/16 08/18/16 08:00 16:00 00:00 Intake Total 1747 ml Output Total 555 ml Balance 1192 ml Physical Examination Intubated Respirations: Auscultation Cardiac regular without murmur Abdomen soft. Absent bowel sounds Extremities: Mild distal lower extremity edema. Neurologic: Pupils 3 mm minimally reactive Minimal corneal responses Absent oculocephalic response Mild cough response No response to pain all extremities Mckenzie's response absent bilateral Ventriculostomy in place and functioning well. Lab, Micro, Other Results 08/18/2016 CT scan head images reviewed. I agree with findings as noted below: Head CT 08/18/16 06 Signed Impressions: Service Date/Time: Thursday, August 18, 2016 04:49 - CONCLUSION: 1. Placement of a left parietal ventriculostomy tube with its decrease in ventricular size since earlier exam. 2. Partial suboccipital craniectomy with decrease in size of posterior fossa hematoma. Intraventricular and subarachnoid hemorrhage remain. Previous lacunar infarcts the basal ganglia have a similar appearance. Mart Mar MD Chest X-Ray 08/18/16 06 Signed Impressions: Service Date/Time: Thursday, August 18, 2016 05:03 - CONCLUSION: 1. Endotracheal tube and nasogastric tube in satisfactory position. Left central line tip in superior vena cava. Mart Mar MD Neck CTA 08/17/16 0000 Signed Impressions: Service Date/Time: Wednesday, August 17, 2016 10:50 - CONCLUSION: 1. No significant abnormality is identified in the neck arterial vasculature. 2. Right pleural effusion with adjacent compressive atelectasis and/or consolidation. Tyshawn Witt MD Head CTA 08/17/16 0000 Signed Impressions: Service Date/Time: Wednesday, August 17, 2016 10:50 - CONCLUSION: No aneurysm or acute intracranial vascular abnormality is identified. Please refer to noncontrast head CT for description of the posterior fossa and ventricular blood products. Tyshawn Witt MD Laboratory Tests Test 08/17/16 08/17/16 08/18/16 08/18/16 17:28 17:46 00:20 05:25 Serum Osmolality 319 MOSM/KG 324 MOSM/KG 328 MOSM/KG Blood Gas HCO3 20 mmol/L Blood Gas Base Excess -5.1 mmol/L Arterial Blood pH 7.32 Arterial Blood Oxygen Content 20.2 Vol % White Blood Count 14.2 TH/MM3 Platelet Count 131 TH/MM3 Mean Platelet Volume 11.8 FL Chloride Level 113 MEQ/L Carbon Dioxide Level 19.1 MEQ/L Blood Urea Nitrogen 43 MG/DL Creatinine 3.70 MG/DL Estimat Glomerular Filtration 13 ML/MIN Rate Random Glucose 134 MG/DL Test 08/18/16 08/18/16 09:28 11:45 Blood Gas HCO3 15 mmol/L Blood Gas Base Excess -9.4 mmol/L Arterial Blood pH 7.33 Arterial Blood Partial 30 mmHg Pressure CO2 Arterial Blood Partial 353 mmHg Pressure O2 Sodium Level 148 MEQ/L Serum Osmolality 327 MOSM/KG Medical Decision Making Impression and Plan Impression: 1. Persistent severe neurologic deficit following suboccipital craniectomy and evacuation of cerebellar hematoma. 2. Hypertension Plan: Continue ventriculostomy. Monitor ICPs Continue ventilatory support Follow-up CT scan next week if remains clinically stable. Non-chemical DVT prophylaxis Ulcer prophylaxis Continuing hypertensive medications. Nicardipine as needed Bruce Garza MD August 18, 2016 16:29
[2016-08-18 18:27] LABS: BLOOD GAS BASE EXCESS -9.7 mmol/L (-2-2); BLOOD GAS HCO3 16 mmol/L (22-26); BLOOD GAS METHEMOGLOBIN 1.1 % (0-2); BLOOD GAS O2 HGB SATURATION 97 % (90-100); BLOOD GAS OXYGEN CONTENT 17.8 Vol % (12.0-20.0); BLOOD GAS PCO2 34 mmHg (38-42); BLOOD GAS PO2 134 mmHg (61-120); BLOOD GAS TOTAL HGB 12.9 G/DL (12.0-16.0); CRITICAL VALUE YES; TEMP CORR TO 98.6
[2016-08-18 18:28] LABS: DRAW SITE ART LINE; FIO2 40 %; OXYGEN DEVICE AC/20/500/PEEP8; STAT NO
[2016-08-19] VITALS (20 sets, daily range): BP systolic 128–143; BP diastolic 58–62; PULSE 66–88; RESP 20–23; TEMP 93.8–98.8; O2SAT 93–98
[2016-08-19] MEDS: hydrALAZINE HCL 20 MG/ML VIAL IV PUSH PRN ×8 (00:12→20:37)
[2016-08-19 01:14] LABS: BLOOD GAS BASE EXCESS -10.4 mmol/L (-2-2); BLOOD GAS HCO3 15 mmol/L (22-26); BLOOD GAS METHEMOGLOBIN 1.2 % (0-2); BLOOD GAS O2 HGB SATURATION 97 % (90-100); BLOOD GAS OXYGEN CONTENT 16.9 Vol % (12.0-20.0); BLOOD GAS PO2 139 mmHg (61-120); BLOOD GAS TOTAL HGB 12.3 G/DL (12.0-16.0); TEMP CORR TO 98.6
[2016-08-19 01:15] LABS: BLOOD GAS PCO2 33 mmHg (38-42)
[2016-08-19 01:16] LABS: CRITICAL VALUE YES; DRAW SITE ART LINE; FIO2 40 %; OXYGEN DEVICE VENTILATOR; STAT NO; VENT SETTINGS AC 18/500/8PEEP
[2016-08-19] MEDS: LABETALOL HCL 100 MG/20 ML VIAL IV PUSH PRN ×10 (02:20→21:01)
[2016-08-19 03:33] LABS: HEMATOCRIT 38.3 % (35.0-46.0); MEAN CELL VOLUME 92.2 FL (80.0-100.0); MEAN CORPUSCULAR HEMOGLOBIN 29.6 PG (27.0-34.0); MEAN CORPUSCULAR HGB CONC 32.1 % (32.0-36.0); PLATELET COUNT 105 TH/MM3 (150-450); RED BLOOD COUNT 4.16 MIL/MM3 (4.00-5.30); RED CELL DISTRIBUTION WIDTH 15.9 % (11.6-17.2); REVIEW FLAG FINAL; WHITE BLOOD COUNT 13.9 TH/MM3 (4.0-11.0)
[2016-08-19] MEDS: niCARdipine INJ 25 MG in SODIUM CHLOR 0.9% 250 ML INJ 250 ML IV SCH ×5 (03:36→10:07)
[2016-08-19] MEDS: CHLORHEXIDINE GLUCONATE 2 % 1 PACK (2 CLOTHS) TOP SCH (03:41)
[2016-08-19] MEDS: SODIUM CHLOR 0.9% 1000 ML INJ 1,000 ML IV SCH ×2 (03:41→10:49)
[2016-08-19] MEDS: RESP: ALBUTEROL 2.5 MG/IPRATROPIUM 0.5 MG NEB (SCH) INH ×4 (04:06→20:08)
[2016-08-19 04:10] LABS: BICARBONATE 16.7 MEQ/L (21.0-32.0); POTASSIUM 4.5 MEQ/L (3.5-5.1)
[2016-08-19] MEDS: PROPOFOL 1000 MG/100 ML INJ 100 ML IV SCH ×6 (04:35→20:36)
[2016-08-19] MEDS: INSULIN NovoLIN REGULAR SUPPLEMENTAL SCALE SQ SCH ×4 (06:00→18:00)
[2016-08-19] MEDS: 3% SALINE INJ 500 ML IV SCH (06:00)
[2016-08-19] MEDS: MANNITOL 12.5 GM/50 ML VIAL IV SCH ×2 (06:00)
[2016-08-19] MEDS: CHLORHEXIDINE 0.12% (ORAL KIT) 15 ML CUP MT SCH ×2 (08:00→20:38)
[2016-08-19] MEDS: PANTOPRAZOLE SODIUM 40 MG VIAL IV SCH (08:06)
[2016-08-19] MEDS: DOCUSATE SODIUM 50 MG/SENNA 8.6 MG TAB PO SCH ×2 (08:07→20:41)
[2016-08-19] MEDS: cefTRIAXone INJ 1,000 MG in SODIUM CHLORIDE 0.9% INJ 100 ML IV SCH (08:36)
--- NOTE | 2016-08-19 09:41 | HHI.NSPN ---
([facility]) History Chief Complaint: intubated and sedated ([facility]) Interval History 46-year-old female presented to the emergency room 08/17/16, hypertensive crisis with blood pressure in the 330/[address] scan with large primarily right cerebellar intracranial hemorrhage 08/17/2016: Suboccipital craniectomy, evacuation cerebellar intracranial hemorrhage. Placement of external ventricular drain 08/18/16: Remains intubated. Pupils 3 mm minimally reactive. No response to deep pain all extremities. CT scan head with mild to moderate residual/ recurrent cerebellar hemorrhage, improved compared to preoperative. 08/19/16: Pt sedated with Diprivan drip. Not opening eyes. Pupils 3mm reactive bilaterally. Ventriculostomy in place at 5 cm with bloody CSF. ICP 4- 5 range. ([facility]) System Review Comments Not able to obtain given clinical condition. ([facility]) Exam Results Vital Signs Date Time Temp Pulse Resp B/P Pulse Ox O2 Delivery O2 Flow Rate FiO2 08/19/16 08:12 98 40 08/19/16 06:00 85 08/19/16 04:00 97.9 23 132/60 08/18/16 19:00 Mechanical Ventilator Intake and Output 08/18/16 08/18/16 08/19/16 08:00 16:00 00:00 Intake Total 2864 ml 2798 ml 2318 ml Output Total 360 ml 330.0 ml 306 ml Balance 2504 ml 2468.0 ml 2012 ml ([facility]) Physical Examination Resp: Intubated. CTA bilaterally. Rate 16. FiO2 40%. Peep 8. Heart: NSR no murmurs Abd: Soft positive bs Skin: No cyanosis or erythema Muscle: Sedated, not following commands. Neuro: Pt sedated on Diprivan. Not opening eyes. Pupils 3 mm bilaterally reactive bilaterally. Not following commands.Ventriculostomy drain in place at 5cm with blood tinged CSF. ICP 4-5. ([facility]) Lab, Micro, Other Results Last Impressions Head CT 08/18/16 0600 Signed Impressions: Service Date/Time: Thursday, August 18, 2016 04:49 - CONCLUSION: 1. Placement of a left parietal ventriculostomy tube with its decrease in ventricular size since earlier exam. 2. Partial suboccipital craniectomy with decrease in size of posterior fossa hematoma. Intraventricular and subarachnoid hemorrhage remain. Previous lacunar infarcts the basal ganglia have a similar appearance. Mart Mar MD Chest X-Ray 08/18/16 0600 Signed Impressions: Service Date/Time: Thursday, August 18, 2016 05:03 - CONCLUSION: 1. Endotracheal tube and nasogastric tube in satisfactory position. Left central line tip in superior vena cava. Mart Mar MD Neck CTA 08/17/16 0000 Signed Impressions: Service Date/Time: Wednesday, August 17, 2016 10:50 - CONCLUSION: 1. No significant abnormality is identified in the neck arterial vasculature. 2. Right pleural effusion with adjacent compressive atelectasis and/or consolidation. Tyshawn Witt MD Head CTA 08/17/16 0000 Signed Impressions: Service Date/Time: Wednesday, August 17, 2016 10:50 - CONCLUSION: No aneurysm or acute intracranial vascular abnormality is identified. Please refer to noncontrast head CT for description of the posterior fossa and ventricular blood products. Tyshawn Witt MD Laboratory Tests Test 08/18/16 08/18/16 08/18/16 08/18/16 11:45 16:50 18:05 23:05 Sodium Level 148 MEQ/L 149 MEQ/L 152 MEQ/L Serum Osmolality 327 MOSM/KG 332 MOSM/KG 335 MOSM/KG Blood Gas Puncture Site ART LINE Blood Gas Patient Temperature 98.6 Blood Gas HCO3 16 mmol/L Blood Gas Base Excess -9.7 mmol/L Blood Gas Oxygen Saturation 97 % Arterial Blood pH 7.29 Arterial Blood Partial 34 mmHg Pressure CO2 Arterial Blood Partial 134 mmHg Pressure O2 Arterial Blood Oxygen Content 17.8 Vol % Arterial Blood 1.0 % Carboxyhemoglobin Arterial Blood Methemoglobin 1.1 % Blood Gas Hemoglobin 12.9 G/DL Oxygen Delivery Device AC/20/500/PEEP8 Blood Gas Inspired Oxygen 40 % Test 08/19/16 08/19/16 00:57 03:15 Blood Gas Puncture Site ART LINE Blood Gas Patient Temperature 98.6 Blood Gas HCO3 15 mmol/L Blood Gas Base Excess -10.4 mmol/L Blood Gas Oxygen Saturation 97 % Arterial Blood pH 7.28 Arterial Blood Partial 33 mmHg Pressure CO2 Arterial Blood Partial 139 mmHg Pressure O2 Arterial Blood Oxygen Content 16.9 Vol % Arterial Blood 1.0 % Carboxyhemoglobin Arterial Blood Methemoglobin 1.2 % Blood Gas Hemoglobin 12.3 G/DL Oxygen Delivery Device VENTILATOR Blood Gas Ventilator Setting AC 18/500/8PEEP Blood Gas Inspired Oxygen 40 % White Blood Count 13.9 TH/MM3 Red Blood Count 4.16 MIL/MM3 Hemoglobin 12.3 GM/DL Hematocrit 38.3 % Mean Corpuscular Volume 92.2 FL Mean Corpuscular Hemoglobin 29.6 PG Mean Corpuscular Hemoglobin 32.1 % Concent Red Cell Distribution Width 15.9 % Platelet Count 105 TH/MM3 Mean Platelet Volume 11.9 FL Sodium Level 152 MEQ/L Potassium Level 4.5 MEQ/L Chloride Level 121 MEQ/L Carbon Dioxide Level 16.7 MEQ/L Anion Gap 14 MEQ/L Blood Urea Nitrogen 51 MG/DL Creatinine 4.21 MG/DL Estimat Glomerular Filtration 11 ML/MIN Rate Random Glucose 148 MG/DL Serum Osmolality 334 MOSM/KG Calcium Level 9.5 MG/DL 08/18/16 08/18/16 08/19/16 15:00 23:00 07:00 Intake Total 2798 ml 2318 ml 2767 ml Output Total 330 ml 306 ml 367 ml Balance 2468 ml 2012 ml 2400 ml Intake IV Total 2798 ml 2318 ml 2442 ml Tube Feeding 325 ml Output Urine Total 250 ml 250 ml 300 ml Gastric Drainage Total 0 ml Tube Feeding Residual Discard 0 ml 0 ml Drainage Total 80 ml 56 ml 67 ml # Bowel Movements 0 ([facility]) Medical Decision Making Impression and Plan A: 46 y/o FM s/p suboccipital craniectomy for large cerebellar ICH. P: Continue to monitor neuro exam Continue with critical care ([facility]) Attending Statement The exam, history, and the medical decision-making described in the above note were completed with the assistance of the mid-level provider. I reviewed and agree with the findings presented. I attest that I had a [id number] encounter with the patient on the same day, and personally performed and documented my assessment and findings in the medical record. (Javier Talley MD) [employer] August 19, 2016 09:41 Javier Talley MD August 19, 2016 10:30
--- NOTE | 2016-08-19 10:47 | HHI.CCPN ---
Subjective Remarks/Hospital Course Hospital Course: This is a 46yF with history of "thyroid problems" and hypertension per her prior records from 2013. She presents after her family called 911 when they found her unresponsive this morning. Per EMS, her GCS was 3. She was intubated on scene. She arrives to the emergency department with a blood pressure of 330s/ 220s. Head CT demonstrates large right cerebellar intraparenchymal hemorrhage with extension into the ventricular system and early posterior fossa herniation. The patient is unresponsive and additional history is unobtainable. Subjective: 08/18: s/p decompressive posterior fossa craniectomy yesterday. overnight severely hypertensive, requiring cardene, labetalol, hydralazine, and low dose propofol. best neuro exam for RN: weakly w/d lower extremities, pupils reactive , +cough. this morning, Cr significantly elevated, likely secondary to acute illness and contrast load. net +3L/24h. 08/19: persistently encephalopathic. also very hypertensive, requiring cardene at 15 mg/hr as well as prn hydralazine/labetalol to keep sbp < 140. still with + cough, but minimal neuro exam. net +6.8L/24h, but KENYON continues to worsen. may have some underlying chronic renal insufficiency, with +proteinuria on admission , but unknown. Also has gram negative stanley UTI on admission. Objective Vital Signs Date Time Temp Pulse Resp B/P Pulse Ox O2 Delivery O2 Flow Rate FiO2 08/19/16 08:12 98 40 08/19/16 06:00 85 08/19/16 04:00 97.9 23 132/60 08/18/16 19:00 Mechanical Ventilator Intake and Output 08/18/16 08/18/16 08/18/16 07:59 15:59 23:59 Intake Total 2864 ml 2798 ml 2318 ml Output Total 360 ml 330 ml 306 ml Balance 2504 ml 2468 ml 2012 ml Result Diagram: 08/19/16 0315 08/19/16 0315 Other Results Microbiology Date/Time Procedure Status Source Growth 08/17/16 08:00 Urine Culture - Final Complete Urine Clean Catch Escherichia Coli Laboratory Tests Test 08/18/16 08/19/16 16:50 00:57 Blood Gas Puncture Site ART LINE ART LINE Blood Gas Patient Temperature 98.6 98.6 Blood Gas HCO3 16 mmol/L 15 mmol/L (22-26) (22-26) Blood Gas Base Excess -9.7 mmol/L -10.4 mmol/L (-2-2) (-2-2) Blood Gas Oxygen Saturation 97 % (90-100) 97 % (90-100) Arterial Blood pH 7.29 7.28 (7.380-7.420) (7.380-7.420) Arterial Blood Partial 34 mmHg (38-42) 33 mmHg (38-42) Pressure CO2 Arterial Blood Partial 134 mmHg 139 mmHg Pressure O2 (61-120) (61-120) Arterial Blood Oxygen Content 17.8 Vol % 16.9 Vol % (12.0-20.0) (12.0-20.0) Arterial Blood 1.0 % (0-4) 1.0 % (0-4) Carboxyhemoglobin Arterial Blood Methemoglobin 1.1 % (0-2) 1.2 % (0-2) Blood Gas Hemoglobin 12.9 G/DL 12.3 G/DL (12.0-16.0) (12.0-16.0) Oxygen Delivery Device AC/20/500/PEEP8 VENTILATOR Blood Gas Inspired Oxygen 40 % 40 % Blood Gas Ventilator Setting AC 18/500/8PEEP Imaging Last Impressions Head CT 08/17/16 0754 Signed Impressions: Service Date/Time: Wednesday, August 17, 2016 09:45 - CONCLUSION: 1. There is acute intraparenchymal hemorrhage in the right cerebellum measuring approximately 5.4 x 4 centimeters. The blood products extend into the ventricular system causing mild dilatation of the ventricles. 2. Mass effect from the posterior fossa hemorrhage results in local mass effect and likely upward transtentorial herniation and some degree of tonsillar herniation. These findings were relayed to Dr. Paredes via telephone at 9: 58 AM. Tyshawn Witt MD Chest X-Ray 08/17/16 0754 Signed Impressions: Service Date/Time: Wednesday, August 17, 2016 08:19 - CONCLUSION: Severe air space consolidation in the right lower lung zone with possible mild airspace opacity in the upper lung zones bilaterally. This could represent an infectious process in the appropriate clinical setting. Alternately, aspiration could have this appearance. Endotracheal tube is in appropriate position. Tyshawn Witt MD Neck CTA 08/17/16 0000 Signed Impressions: Service Date/Time: Wednesday, August 17, 2016 10:50 - CONCLUSION: 1. No significant abnormality is identified in the neck arterial vasculature. 2. Right pleural effusion with adjacent compressive atelectasis and/or consolidation. Tyshawn Witt MD Head CTA 08/17/16 0000 Signed Impressions: Service Date/Time: Wednesday, August 17, 2016 10:50 - CONCLUSION: No aneurysm or acute intracranial vascular abnormality is identified. Please refer to noncontrast head CT for description of the posterior fossa and ventricular blood products. Tyshawn Witt MD Objective Remarks GENERAL: Middle-aged female, lying in bed, intubated, unresponsive, critically ill HEENT: Pupils 2 mm, sluggishly reactive, conjugate. Normocephalic. dressing to occiput. EVD in place, sanguinous output, leveled at 5 cmh2o. Mucous membranes are moist NECK: Trachea is midline. There is no JVD. CHEST: Endotracheal tube in place. Equal chest rise. Clear to auscultation. AC /500/18/8/40% left SC TLC clean and dry, dressing intact. CARDIOVASCULAR: Normal rate, regular rhythm. Sinus by telemetry. ABDOMEN: Obese, soft, nontender, nondistended. No guarding. MUSCULOSKELETAL: Distal pulses 2+. No peripheral edema. right radial arterial line in place, dressing intact. NEUROLOGICAL: RASS -5. GCS 3. Pupils as above. -corneals, - doll's eyes, - gag. + cough. no movement of extremities for me to painful stimuli. A/P Assessment and Plan Assessment: 46yF with large posterior fossa intra-parenchymal hemorrhage with extension into the ventricles and initial evidence of upwards tentorial herniation. She also has associated organ dysfunction including hypertensive emergency, acute kidney injury. Her ICH score is 5, predicting essentially 100 % mortality rate. She is now s/p decompressive posterior fossa craniectomy . will continue to be aggressive for now. I have spoken with her and updated him that her prognosis is poor, and she may never wake up again. We will consult palliative care. Her KENYON continues to worsen, will send urine studies, renal ultrasound. get pulse contour analysis to ensure adequate cardiac output and oxygen delivery to the kidneys. Her acidosis is primarily non-gapped likely secondary to renal tubular acidosis and hyperchloremic acidosis. Plan by systems: Neurologic: Large right cerebellar intraparenchymal hemorrhage Status post posterior fossa decompressive craniectomy 08/17 Frequent neuro checks Hyperosmolar therapy Elevated Head of bed Avoidance of hypercarbia and hypoxia 3% at 30 mL/hr Serial sodiums Neurosurgery: Dr. Garza Respiratory: Acute hypoxic and hypercarbic respiratory failure Does not meet SBT criteria given intracranial hemorrhage and cerebral edema Wean FiO2 for goal SPO2 greater than 92% Avoid hypercarbia, hypoxia --daily abg's, goal paco2 30-40. End-tidal CO2 monitoring Vent bundle Nebs Cardiovascular: Hypertensive emergency Nicardipine, labetalol, hydralazine as needed for goal SBP less than 150 Renal: Acute kidney injury- worsening. Possible Chronic Renal Insufficiency Proteinuria -- Strict I/Os continue NS @ 120cc/hr --pulse contour analysis to ensure adequate oxygen delivery -- urine Na, Cr, eos, u/a with microscopy, renal ultrasound FEN/GI: Intravascular volume depletion- resolved. TF, Jevity 1.5, nutrition consult for goals. Normal saline at 120 cc/hr Hold on ICU electrolyte protocol given renal function. --daily BMP, phos Heme/ID: Urinary Tract Infection- uncomplicated, presented on admission, not catheter associated. -- u/a positive on admission -- start Rocephin 1gm iv q24h and await speciation. 3 days total duration should be adequate for uncomplicated UTI (anticipated stop date 08/22) Endocrine: Hyperglycemia of critical illness -- SSI, medium scale, every 6 Prophylaxis: GI Prophylaxis Protonix IV every 24 hours DVT Prophylaxis -- SCDs Holding pharmacologic DVT prophylaxis in the setting of acute head bleed Lines: Radial arterial line placed emergency department 08/17 left SC tlc 08/17 Lopez Dispo: Remain in the ICU. She remains critically ill. This patient remains critically ill with one or more organ systems which are or may become a threat to life. I have spent in excess of 51 minutes discontinuously in the care and management of this patient. This time is exclusive of procedures, and includes, but is not limited to, evaluation of the patient, review of the medical record, discussions with family, consultants, nursing staff, or respiratory therapy, and documentation in the medical record. Mauricio Reynolds MD August 19, 2016 10:47
[2016-08-19 11:15] LABS: BACTERIA, URINE MOD /hpf; BLOOD, URINE NEG (NEG); GLUCOSE,URINE NEG (NEG); KETONE, URINE NEG (NEG); NITRITE,URINE NEG (NEG); SQUAMOUS EPITHELIAL CELL URINE 10 /hpf (0-5); TRANSITIONAL EPI CELLS, URINE <1 /hpf; URINE COLOR YELLOW (YELLW/STRAW)
--- NOTE | 2016-08-19 12:31 | RADRPT ---
EXAM DATE/TIME: 08/19/2016 10:55 [facility] COMPARISON: No previous studies available for comparison. INDICATIONS : Increased BUN/creatinine. MEDICAL HISTORY : Emphysema. HTN. COPD. Dyspnea. SURGICAL HISTORY : Unable to obtain. ENCOUNTER: Initial ACUITY: 1 day PAIN SCORE: Nonresponsive. LOCATION: Bilateral flank MEASUREMENTS: RIGHT KIDNEY: 6.6 x 3.4 x 3.9 cm LEFT KIDNEY: 12.7 x 5.4 x 5.9 cm FINDINGS: RIGHT KIDNEY: There is severe increased echotexture of the renal parenchyma. No hydronephrosis or mass is visualize d. LEFT KIDNEY: Severe increased echotexture of the renal parenchyma. No hydronephrosis or mass is visualized. BLADDER: Lopez catheter is present within the urinary bladder. No wall thickening or mass is seen. CONCLUSION: Atrophic right kidney with severe abnormal increased echotexture of the renal parenchyma bilaterally indicating medical renal disease. There is no hydronephrosis. Tyshawn Witt MD on August 19, 2016 at 12:28 Board Certified Radiologist. This report was verified electronically.
[2016-08-19] MEDS: SODIUM CHLORID 0.9% IV SCH ×3 (13:18→20:38)
[2016-08-19] MEDS: NICARDIPINE IV SCH ×3 (13:18→20:38)
--- NOTE | 2016-08-19 14:46 | PD.CONS ---
Consult Service Palliative Care . Consult Requested By Dr. eRynolds . Primary Care Physician Unknown . Reason for Consultation a. To assist with evaluation and management of symptoms including: dyspnea, pain. b. To assist medical decision maker(s) with: better understanding of current medical conditions; weighing benefits/burdens of medical treatment options; making medical treatment decisions. . (LEONCIO BLACKMAN) HPI History of Present Illness Mrs. Richardson is a 46 year old female with past medical history of COPD, emphysema, asthma, severe hypertension, prior HELLP syndrome during 2013 and "thyroid problems." Patient presented to [facility] emergency department on 08/17/16 via EMS for respiratory distress. Notes indicate paramedics arrived to find the patient's oxygen saturation in the 40s, patient was intended GCS 13. She was not cooperative with oxygen or breathing treatments and was emergently intubated. Arterial line revealed BP 333/ 185. After intubation saturations increased into the mid 90s. Initial emergency room evaluation revealed: * WBC 15.2, hemoglobin 18.1, hematocrit 55.6, platelet 196, neutrophils 70% * sodium 139, potassium 5.4, chloride 106, carbon dioxide 21.2, BUN 37, creatinine 2.19, GFR 24, glucose 290, calcium 10.1 * total bilirubin 0.5, AST 42, ALT 27, alkaline phosphatase 101 * total creatine kinase 117, CK MB 1.3, troponin 0.02 * BNP 286 * total protein 7.8, albumin 3.7 * salicylates, acetaminophen and alcohol levels negative * urinalysis difficult blood, bacteria, culture indicated. * Toxicology screen negative * CT head acute intraparenchymal hemorrhage in the right cerebellum measuring 5.4 x 4 cm, blood products extend into the ventricular system causing mild dilatation of the ventricles, masses effect from the posterior fossa hemorrhage results in large mass effect and likely upward transtentorial herniation some degree of tonsillar herniation. * Head CTA no aneurysm or acute intracranial vascular abnormality identified. See CT head results. * Neck CTA no significant abnormality in the neck arterial vasculature, right pleural effusion with adjacent compressive atelectasis and/ or consolidation. Patient is admitted with large posterior fossa hemorrhage. Neurosurgery, Dr. Garza was consulted. Patient underwent bilateral suboccipital craniectomy, evacuation of intracranial hemorrhage right occipital bur hole for ventriculostomy placement on 08/17/16. Patient remains encephalopathic, hypertensive requiring Cardene drip in addition to hydrology/labetalol to keep systolic blood pressure less than 140. No evidence of neurologic improvement. Renal function continues to worsen, BUN 51, creatinine 5.21, GFR 11. Renal ultrasound reveals atrophic right kidney with severe abnormal increased echotexture of the renal parenchyma bilaterally indicating medical renal disease , no hydronephrosis. Sodium 152. Serum osmolality 334. Urine culture now resulted, positive E. coli on Rocephin. On 08/18/[address] head revealed left parietal ventriculostomy tube in place, partial suboccipital craniectomy with decrease in size of posterior fossa hematoma, intraventricular and subarachnoid hemorrhage remain, previous lacunar infarcts of basal ganglia similar appearance. Palliative care is consulted to assist with further clarification of treatment goals in this patient with posterior fossa intracranial hemorrhage status post decompression. . Function/Cognitive Trajectory Patient has not worked in 17 years. She leads a relatively sedentary life style. . (LEONCIO BLACKMAN) Review of Systems ROS Limitations: Intubated, Unresponsive (on mech vent. ) Constitutional: COMPLAINS OF: Fatigue, Generalized weakness Respiratory: COMPLAINS OF: Cough, Shortness of breath Cardiovascular: COMPLAINS OF: Dyspnea on Exertion Hematologic/Lymphatics: COMPLAINS OF: Bruising Psychiatric: COMPLAINS OF: Anxiety, Depression (post loss of 4 babies in the past - most recent 2013. ) Other ROS: ROS per EMR review and family report, pt unable to provide history due to condition. (LEONCIO BLACKMAN) Past Family Social History Coded Allergies: UNOBTAINABLE (Unverified , 08/17/16) INTUBATED Past Medical History Hypertension "Thyroid problems" COPD Emphysema Asthma Uterine fibroids Prior HELLP syndrome 4 - Para 1 - AB 3 - Living 0 - Last demise 29 weeks/ 4 days (2013) . Past Surgical History D&C (2003) Dermoid cyst removal left salpingo - oophorectomy. . Reported Medications Inhaler prior to admission reports she took one of her blood pressure medicines, but not the other. . Current Medications Medications (Trade) Dose Ordered Sig/Kendal Route Start Time Stop Time Status Last Admin Sodium Chloride 2 ml 2 ml UNSCH PRN IVF 08/17/16 08:00 (Diprivan 1000 Mg/100ml Inj) 100 ml @ 0 mls/hr TITRATE IV 08/17/16 10:45 08/19/16 11:52 (Peridex 0.12% Liq) 15 ml BID@08,20 MT 08/17/16 20:00 08/19/16 08:00 (D50w (Vial) Inj) 25 ml UNSCH PRN IV PUSH 08/17/16 10:45 Insulin Human Regular 1 1 Q6HR SQ 08/17/16 12:00 (NS 1000 ml Inj) 1,000 ml @ 120 mls/hr Q8H20M IV 08/17/16 10:39 08/19/16 10:49 (Protonix Inj) 40 mg DAILY IV 08/18/16 09:00 08/19/16 08:06 (Zofran Inj) 4 mg Q6H PRN IV 08/17/16 10:45 Miscellaneous Information 1 Q361D XX 08/17/16 10:45 (Chlorhexidine 2% Cloth) 3 pack Taper DAILY@04 TOP 08/18/16 04:00 08/14/17 03:59 08/19/16 03:41 (Chlorhexidine 2% Cloth) 3 pack UNSCH PRN TOP 08/17/16 10:45 (Subha-Colace) 1 tab BID PO 08/17/16 21:00 08/19/16 08:07 (Brethine Inj) 1 mg UNSCH PRN SQ 08/17/16 10:45 Hydralazine HCl 20 mg 20 mg Q30M PRN IV PUSH 08/18/16 08:45 08/19/16 08:36 Sodium Chloride 500 ml @ 30 mls/hr CONTINUOUS IV 08/18/16 12:30 08/19/16 06:00 (Rocephin Inj/NS Inj) 100 ml @ 200 mls/hr Q24H IV 08/19/16 09:00 08/22/16 08:59 08/19/16 08:36 Labetalol HCl 40 mg 40 mg Q15M PRN IV PUSH 08/19/16 11:30 08/19/16 12:37 (Cardene Inj/NS 500 ml Inj) 520 ml @ 0 mls/hr TITRATE IV 08/19/16 13:00 08/19/16 13:18 . Family History Family history of hypertension (mother). Brother prior stroke. Father estranged 40 years - no known medical history. . Substance Use Tobacco: smokes daily - per EMR 5 cigarettes to 3 PPD. Alcohol: 1 to 2 alcoholic beverages monthly Prescription med abuse: None. Illicits: None. . Psychosocial History From [place]. Raised in [place]. Moved to [place] in 1985. ? GED. Worked as a physical security manager. . No children. Enjoys browsing the internet and music. . Spiritual/Cultural Factors Catholic loyda. . (LEONCIO BLACKMAN) Living Will: Never completed Health Care Surrogate: Never completed Durable Power of Information Technology Professor: Never completed Health Care Surrogate(s): Patient is currently incapacitated, will likely not regain capacity. According to [place] statutes, health care proxy decision-making falls to the patient's spouse. Today's verbally stated goals: Patient incapacitated, unlikely she will regain capacity. . Family/friends goals: Goals remain aggressive. . Ethical and Legal Issues Patient is currently incapacitated, will likely not regain capacity. According to [place] statutes, health care proxy decision-making falls to the patient's spouse. . (LEONCIO BLACKMAN) Physical Exam Vital Signs Date Time Temp Pulse Resp B/P Pulse Ox O2 Delivery O2 Flow Rate FiO2 08/19/16 12:00 81 08/19/16 12:00 98.7 82 21 137/61 96 08/19/16 12:00 40 08/19/16 11:34 96 40 08/19/16 10:00 81 08/19/16 08:12 98 40 08/19/16 08:00 98.3 88 20 143/62 98 08/19/16 08:00 40 08/19/16 08:00 85 08/19/16 07:00 97 Mechanical Ventilator 40 08/19/16 06:00 85 08/19/16 04:08 98 40 08/19/16 04:00 97.9 79 23 132/60 97 08/19/16 04:00 40 08/19/16 04:00 72 08/19/16 02:00 84 08/19/16 01:25 97 40 08/19/16 00:00 86 08/19/16 00:00 97.7 76 20 137/61 97 08/19/16 00:00 40 08/18/16 22:00 98 40 08/18/16 22:00 73 08/18/16 20:38 98 40 08/18/16 20:38 98 40 08/18/16 20:00 72 08/18/16 20:00 40 08/18/16 20:00 97.9 73 18 137/64 97 08/18/16 19:00 97 Mechanical Ventilator 40 08/18/16 16:03 97 40 08/18/16 16:00 97.8 71 20 131/62 97 08/18/16 16:00 71 08/18/16 08/19/16 19:00 07:00 Intake Total 2798 ml 5085 ml Output Total 330.0 ml 673 ml Balance 2468.0 ml 4412 ml Intake IV Total 2798 ml 4760 ml Tube Feeding 325 ml Output Urine Total 250 ml 550 ml Gastric Drainage Total 0 ml Tube Feeding Residual Discard 0 ml Drainage Total 80 ml 123 ml # Bowel Movements 0 Exam CONSTITUTIONAL/GENERAL: This is an critically ill, overweight patient, she appears older than her actual age. On [facility] vent. TUBES/LINES/DRAINS: ETT, OG, PIV right AC, Right radial A line, Lopez, SCDs. SKIN: No jaundice, rashes, or lesions. Ecchymoses on upper extremities. No wounds seen anteriorly. Skin temperature appropriate. Not diaphoretic. HEAD: Atraumatic. Normocephalic. EYES: Pupils 2mm sluggish. ENT: Unable to assess hearing. Nose without bleeding or purulent drainage. Unable to visualize throat due to tubes. NECK: Trachea midline. CARDIOVASCULAR: Regular rate and rhythm without murmurs, gallops, or rubs. No JVD. Peripheral pulses symmetric. RESPIRATORY/CHEST: Symmetric, unlabored respirations. Clear to auscultation. Breath sounds equal bilaterally. No wheezes, rales, or rhonchi. GASTROINTESTINAL: Abdomen soft, protuberant. Distant bowel sounds. GENITOURINARY: Without palpable bladder distension. Lopez catheter in place. MUSCULOSKELETAL: Extremities with trace edema. No mottling or clubbing. LYMPHATICS: No palpable cervical or supraclavicular adenopathy. NEUROLOGICAL: Sedated. No corneal, doll's eyes, gag. No withdraw to painful stimuli. + cough. No spontaneous movement of extremities. PSYCHIATRIC: Sedated. . (LEONCIO BLACKMAN) Diagnostic Tests Laboratory Laboratory Tests Test 08/17/16 08/17/16 08/17/16 08/17/16 07:55 08:00 08:30 10:30 Sodium Level 139 MEQ/L 140 MEQ/L (136-145) (136-145) Potassium Level 5.4 MEQ/L (3.5-5.1) Chloride Level 106 MEQ/L (98-107) Carbon Dioxide Level 21.2 MEQ/L (21.0-32.0) Anion Gap 12 MEQ/L (5-15) Blood Urea Nitrogen 37 MG/DL (7-18) Creatinine 2.19 MG/DL (0.50-1.00) Estimat Glomerular Filtration 24 ML/MIN (>89) Rate Random Glucose 290 MG/DL (74-106) Calcium Level 10.1 MG/DL (8.5-10.1) Total Bilirubin 0.5 MG/DL (0.2-1.0) Aspartate Amino Transf 42 U/L (15-37) (AST/SGOT) Alanine Aminotransferase 27 U/L (10-53) (ALT/SGPT) Alkaline Phosphatase 101 U/L (45-117) Total Creatine Kinase 117 U/L (26-192) Creatine Kinase MB 1.3 NG/ML (0.5-3.6) Troponin I 0.02 NG/ML (0.02-0.05) B-Type Natriuretic Peptide 286 PG/ML (0-100) Total Protein 7.8 GM/DL (6.4-8.2) Albumin 3.7 GM/DL (3.4-5.0) Salicylates Level LESS THAN 1.7 MG/DL (2.8-20.0) Acetaminophen Level LESS THAN 2.0 MCG/ML (10.0-30.0) Ethyl Alcohol Level LESS THAN 3 MG/DL (0-5) White Blood Count 15.2 TH/MM3 (4.0-11.0) Red Blood Count 6.14 MIL/MM3 (4.00-5.30) Hemoglobin 18.1 GM/DL (11.6-15.3) Hematocrit 55.6 % (35.0-46.0) Mean Corpuscular Volume 90.6 FL (80.0-100.0) Mean Corpuscular Hemoglobin 29.6 PG (27.0-34.0) Mean Corpuscular Hemoglobin 32.6 % Concent (32.0-36.0) Red Cell Distribution Width 14.8 % (11.6-17.2) Platelet Count 196 TH/MM3 (150-450) Mean Platelet Volume 11.8 FL (7.0-11.0) Neutrophils (%) (Auto) 70.0 % (16.0-70.0) Lymphocytes (%) (Auto) 22.8 % (9.0-44.0) Monocytes (%) (Auto) 4.5 % (0.0-8.0) Eosinophils (%) (Auto) 1.7 % (0.0-4.0) Basophils (%) (Auto) 1.0 % (0.0-2.0) Neutrophils # (Auto) 10.6 TH/MM3 (1.8-7.7) Lymphocytes # (Auto) 3.5 TH/MM3 (1.0-4.8) Monocytes # (Auto) 0.7 TH/MM3 (0-0.9) Eosinophils # (Auto) 0.3 TH/MM3 (0-0.4) Basophils # (Auto) 0.1 TH/MM3 (0-0.2) CBC Comment DIFF FINAL Differential Comment Urine Opiates Screen NEG (NEG) Urine Barbiturates Screen NEG (NEG) Urine Amphetamines Screen NEG (NEG) Urine Benzodiazepines Screen NEG (NEG) Urine Cocaine Screen NEG (NEG) Urine Cannabinoids Screen NEG (NEG) Urine Color YELLOW (YELLW/STRAW) Urine Turbidity HAZY (CLEAR) Urine pH 8.0 (5.0-8.5) Urine Specific [place] 1.021 (1.002-1.035) Urine Protein GREATER THAN 600 mg/dL (NEG-TRACE) Urine Glucose (UA) 300 mg/dL (NEG) Urine Ketones NEG mg/dL (NEG) Urine Occult Blood MOD (NEG) Urine Nitrite NEG (NEG) Urine Bilirubin NEG (NEG) Urine Urobilinogen LESS THAN 2.0 MG/DL (LESS THAN 2.0) Urine Leukocyte Esterase NEG (NEG) Urine RBC 28 /hpf (0-3) Urine WBC 18 /hpf (0-5) Urine Squamous Epithelial 3 /hpf (0-5) Cells Urine Transitional Epithelial <1 /hpf (NONE) Cells Urine Bacteria RARE /hpf (NONE) Microscopic Urinalysis Comment CULTURE INDICATED Blood Gas Puncture Site RT RADIAL Blood Gas Patient Temperature 98.6 Blood Gas HCO3 24 mmol/L (22-26) Blood Gas Base Excess -4.6 mmol/L (-2-2) Blood Gas Oxygen Saturation 93 % (90-100) Arterial Blood pH 7.12 (7.380-7.420) Arterial Blood Partial 76 mmHg (38-42) Pressure CO2 Arterial Blood Partial 108 mmHG Pressure O2 (61-120) Arterial Blood Oxygen Content 24.9 Vol % (12.0-20.0) Arterial Blood 2.1 % (0-4) Carboxyhemoglobin Arterial Blood Methemoglobin 0.7 % (0-2) Blood Gas Hemoglobin 19.0 G/DL (12.0-16.0) Oxygen Delivery Device VENTILATOR Blood Gas Ventilator Setting AC14/500/PEEP8 Blood Gas Inspired Oxygen 100 % Prothrombin Time 11.2 SEC (9.8-11.6) Prothromb Time International 1.0 RATIO Ratio Activated Partial 26.6 SEC Thromboplast Time (24.3-30.1) Nasal Screen MRSA (PCR) MRSA NOT DETECTED (NOT DETECT) Serum Osmolality 312 MOSM/KG (275-295) Blood Type A POSITIVE Antibody Screen NEGATIVE Blood Bank Comment Test 08/17/16 08/17/16 08/17/16 08/18/16 12:01 17:28 17:46 00:20 Blood Gas Puncture Site ART LINE ART LINE Blood Gas Patient Temperature 98.6 98.6 Blood Gas HCO3 20 mmol/L 20 mmol/L (22-26) (22-26) Blood Gas Base Excess -5.6 mmol/L -5.1 mmol/L (-2-2) (-2-2) Blood Gas Oxygen Saturation 97 % (90-100) 96 % (90-100) Arterial Blood pH 7.29 7.32 (7.380-7.420) (7.380-7.420) Arterial Blood Partial 43 mmHg (38-42) 40 mmHg (38-42) Pressure CO2 Arterial Blood Partial 299 mmHg 110 mmHg Pressure O2 (61-120) (61-120) Arterial Blood Oxygen Content 23.3 Vol % 20.2 Vol % (12.0-20.0) (12.0-20.0) Arterial Blood 1.5 % (0-4) 1.3 % (0-4) Carboxyhemoglobin Arterial Blood Methemoglobin 0.9 % (0-2) 1.0 % (0-2) Blood Gas Hemoglobin 16.5 G/DL 14.9 G/DL (12.0-16.0) (12.0-16.0) Oxygen Delivery Device VENTILATOR VENTILATOR Blood Gas Ventilator Setting AC AC 28/500/PEEP8 28/500/PEEP8 Blood Gas Inspired Oxygen 100 % 70 % Sodium Level 145 MEQ/L 145 MEQ/L (136-145) (136-145) Serum Osmolality 319 MOSM/KG 324 MOSM/KG (275-295) (275-295) Test 08/18/16 08/18/16 08/18/16 08/18/16 05:25 09:28 11:45 16:50 White Blood Count 14.2 TH/MM3 (4.0-11.0) Red Blood Count 4.50 MIL/MM3 (4.00-5.30) Hemoglobin 13.5 GM/DL (11.6-15.3) Hematocrit 41.0 % (35.0-46.0) Mean Corpuscular Volume 91.1 FL (80.0-100.0) Mean Corpuscular Hemoglobin 29.9 PG (27.0-34.0) Mean Corpuscular Hemoglobin 32.9 % Concent (32.0-36.0) Red Cell Distribution Width 15.2 % (11.6-17.2) Platelet Count 131 TH/MM3 (150-450) Mean Platelet Volume 11.8 FL (7.0-11.0) Sodium Level 145 MEQ/L 148 MEQ/L (136-145) (136-145) Potassium Level 4.9 MEQ/L (3.5-5.1) Chloride Level 113 MEQ/L (98-107) Carbon Dioxide Level 19.1 MEQ/L (21.0-32.0) Anion Gap 13 MEQ/L (5-15) Blood Urea Nitrogen 43 MG/DL (7-18) Creatinine 3.70 MG/DL (0.50-1.00) Estimat Glomerular Filtration 13 ML/MIN (>89) Rate Random Glucose 134 MG/DL (74-106) Serum Osmolality 328 MOSM/KG 327 MOSM/KG (275-295) (275-295) Calcium Level 9.4 MG/DL (8.5-10.1) Blood Gas Puncture Site ART LINE ART LINE Blood Gas Patient Temperature 98.6 98.6 Blood Gas HCO3 15 mmol/L 16 mmol/L (22-26) (22-26) Blood Gas Base Excess -9.4 mmol/L -9.7 mmol/L (-2-2) (-2-2) Blood Gas Oxygen Saturation 98 % (90-100) 97 % (90-100) Arterial Blood pH 7.33 7.29 (7.380-7.420) (7.380-7.420) Arterial Blood Partial 30 mmHg (38-42) 34 mmHg (38-42) Pressure CO2 Arterial Blood Partial 353 mmHg 134 mmHg Pressure O2 (61-120) (61-120) Arterial Blood Oxygen Content 18.6 Vol % 17.8 Vol % (12.0-20.0) (12.0-20.0) Arterial Blood 0.9 % (0-4) 1.0 % (0-4) Carboxyhemoglobin Arterial Blood Methemoglobin 1.1 % (0-2) 1.1 % (0-2) Blood Gas Hemoglobin 12.9 G/DL 12.9 G/DL (12.0-16.0) (12.0-16.0) Oxygen Delivery Device VENTILATOR AC/20/500/PEEP8 Blood Gas Ventilator Setting AC 26/500/PEEP8 Blood Gas Inspired Oxygen 50 % 40 % Test 08/18/16 08/18/16 08/19/16 08/19/16 18:05 23:05 00:57 03:15 Sodium Level 149 MEQ/L 152 MEQ/L 152 MEQ/L (136-145) (136-145) (136-145) Serum Osmolality 332 MOSM/KG 335 MOSM/KG 334 MOSM/KG (275-295) (275-295) (275-295) Blood Gas Puncture Site ART LINE Blood Gas Patient Temperature 98.6 Blood Gas HCO3 15 mmol/L (22-26) Blood Gas Base Excess -10.4 mmol/L (-2-2) Blood Gas Oxygen Saturation 97 % (90-100) Arterial Blood pH 7.28 (7.380-7.420) Arterial Blood Partial 33 mmHg (38-42) Pressure CO2 Arterial Blood Partial 139 mmHg Pressure O2 (61-120) Arterial Blood Oxygen Content 16.9 Vol % (12.0-20.0) Arterial Blood 1.0 % (0-4) Carboxyhemoglobin Arterial Blood Methemoglobin 1.2 % (0-2) Blood Gas Hemoglobin 12.3 G/DL (12.0-16.0) Oxygen Delivery Device VENTILATOR Blood Gas Ventilator Setting AC 18/500/8PEEP Blood Gas Inspired Oxygen 40 % White Blood Count 13.9 TH/MM3 (4.0-11.0) Red Blood Count 4.16 MIL/MM3 (4.00-5.30) Hemoglobin 12.3 GM/DL (11.6-15.3) Hematocrit 38.3 % (35.0-46.0) Mean Corpuscular Volume 92.2 FL (80.0-100.0) Mean Corpuscular Hemoglobin 29.6 PG (27.0-34.0) Mean Corpuscular Hemoglobin 32.1 % Concent (32.0-36.0) Red Cell Distribution Width 15.9 % (11.6-17.2) Platelet Count 105 TH/MM3 (150-450) Mean Platelet Volume 11.9 FL (7.0-11.0) Potassium Level 4.5 MEQ/L (3.5-5.1) Chloride Level 121 MEQ/L (98-107) Carbon Dioxide Level 16.7 MEQ/L (21.0-32.0) Anion Gap 14 MEQ/L (5-15) Blood Urea Nitrogen 51 MG/DL (7-18) Creatinine 4.21 MG/DL (0.50-1.00) Estimat Glomerular Filtration 11 ML/MIN (>89) Rate Random Glucose 148 MG/DL (74-106) Calcium Level 9.5 MG/DL (8.5-10.1) Phosphorus Level 4.7 MG/DL (2.5-4.9) Test 08/19/16 10:50 Urine Color YELLOW (YELLW/STRAW) Urine Turbidity CLOUDY (CLEAR) Urine pH 5.0 (5.0-8.5) Urine Specific [place] 1.018 (1.002-1.035) Urine Protein 30 mg/dL (NEG-TRACE) Urine Glucose (UA) NEG mg/dL (NEG) Urine Ketones NEG mg/dL (NEG) Urine Occult Blood NEG (NEG) Urine Nitrite NEG (NEG) Urine Bilirubin NEG (NEG) Urine Urobilinogen LESS THAN 2.0 MG/DL (LESS THAN 2.0) Urine Leukocyte Esterase LARGE (NEG) Urine RBC 9 /hpf (0-3) Urine WBC /hpf (0-5) Urine WBC Clumps FEW (NONE) Urine Squamous Epithelial 10 /hpf (0-5) Cells Urine Transitional Epithelial <1 /hpf (NONE) Cells Urine Bacteria MOD /hpf (NONE) Urine Eosinophils RARE /HPF (NONE SEEN) Urine Random Creatinine 64.9 MG/DL Urine Random Sodium 44 MEQ/L (LEONCIO BLACKMAN-Micheal) Result Diagram: 08/19/1631408/19/16314 Microbiology Microbiology Date/Time Procedure Status Source Growth 08/17/16 08:00 Urine Culture - Final Complete Urine Clean Catch Escherichia Coli . Imaging Last Impressions Renal Ultrasound 08/19/16 0000 Signed Impressions: Service Date/Time: Friday, August 19, 2016 10:55 - CONCLUSION: Atrophic right kidney with severe abnormal increased echotexture of the renal parenchyma bilaterally indicating medical renal disease. There is no hydronephrosis. Tyshawn Witt MD Head CT 08/18/16 0600 Signed Impressions: Service Date/Time: Thursday, August 18, 2016 04:49 - CONCLUSION: 1. Placement of a left parietal ventriculostomy tube with its decrease in ventricular size since earlier exam. 2. Partial suboccipital craniectomy with decrease in size of posterior fossa hematoma. Intraventricular and subarachnoid hemorrhage remain. Previous lacunar infarcts the basal ganglia have a similar appearance. Mart Mar MD Chest X-Ray 08/18/16 0600 Signed Impressions: Service Date/Time: Thursday, August 18, 2016 05:03 - CONCLUSION: 1. Endotracheal tube and nasogastric tube in satisfactory position. Left central line tip in superior vena cava. Mart Mar MD Neck CTA 08/17/16 0000 Signed Impressions: Service Date/Time: Wednesday, August 17, 2016 10:50 - CONCLUSION: 1. No significant abnormality is identified in the neck arterial vasculature. 2. Right pleural effusion with adjacent compressive atelectasis and/or consolidation. Tyshawn Witt MD Head CTA 08/17/16 0000 Signed Impressions: Service Date/Time: Wednesday, August 17, 2016 10:50 - CONCLUSION: No aneurysm or acute intracranial vascular abnormality is identified. Please refer to noncontrast head CT for description of the posterior fossa and ventricular blood products. Tyshawn Witt MD . Procedures * 08/17/16 - bilateral suboccipital craniectomy, evacuation of intracranial hemorrhage right occipital bur hole for ventriculostomy placement. * 08/17/16 - intubated. . (LEONCIO BLACKMAN) Patient/Family Conference Present at Family Conference: Met with spouse at bedside. Then spoke with mother and brother in conference room. Also present Heidi Booker LCSW. . Family Conference Time (mins): 60 Family Conference Location: Bedside, Consult Room Issues Discussed: * Palliative care role, purpose, approach * Additional medical, psychosocial, and spiritual history * Patients general health, functional status, and cognitive changes in the months leading up to the current hospitalization * Patient/family understanding of the current medical problems * Patient/family understanding of prognosis * Patients goals of care as best understood from advance directives and/or conversations and/or values * Current medical treatment options and benefits/burdens of those options * Likely scenarios comparing ongoing aggressive care with a transition to comfort measures only * Questions answered to the best of my ability * Palliative care contact information provided In summary, family has a very simple understanding of current condition and prognosis. Spouse seems to understand critical illness and poor prognosis. He is appropriately tearful during conversation. He desires continued aggressive care. He tells me he is leaving it in Gods hands. He tells me he has lost 7 family members (including 2 brothers) in the past few years. He and patient have lost 4 babies also. He does not know how he will live without her. He welcomes continued visit. * Spouse is from [place], I offered appliance sales associate he declines stating, he understands [place] (and our conversation) as he has been in [place] for more than 20 years. (LEONCIO BLACKMAN) Assessment and Plan Disease Oriented Problem List: (1) Intracranial hemorrhage (2) Hypertensive crisis (3) [id number] kidney injury (4) Hyperglycemia Symptom Scale: (1) Pain (2) Dyspnea Pertinent Non-Medical Issues Psychosocial: . No children. Spiritual: Catholic loyda. Legal: Patient is currently incapacitated, will likely not regain capacity. According to [place] statutes, health care proxy decision-making falls to the patient's spouse. Ethical issues impacting care: no known concerns at this time. . Important Contacts * Roland Davis, spouse/ HCP: [phone] * Savannah, mother * Tyshawn, brother: [phone] . Prognosis Overall prognosis appears poor for meaningful recovery. Code Status: Full Code Plan * Decision Maker: Patient is currently incapacitated, will likely not regain capacity. According to [place] statutes, health care proxy decision-making falls to the patient's spouse, Roland Davis. * FULL CODE * Spouse is from [place], I offered translation service he declines stating, he understands [place] (and our conversation) as he has been in [place] for more than 20 years. I am able to understand his wishes and he confirms my understanding of his wishes. * Discussed with Dr. Reynolds and nursing staff. * Palliative care met with spouse and family: Family has a very simple understanding of current medical problems. Reviewed overall poor prognosis. Palliative care will continue to follow. * SYMPTOMS: Pain: due to recent hemorrhage, surgery, hypertension. Currently on Diprivan. Dyspnea: Has underlying COPD, emphysema and asthma, on mech vent. No new medication recommendations at this time. * Palliative care number provided. * Palliative care will continue to follow throughout hospital course to assist with symptom management and clarification of goals as needed. . (LEONCIO BLACKMAN) Thank you for the opportunity to participate in the care of Ms. Richardson. (LEONCIO BLACKMAN) Attestation To help prompt me to consider important information that might be impacting today's encounter and assessment, information from prior notes written by myself or my colleagues may have been "brought forward" into today's note. My signature on this note, however, is an attestation that I personally performed the exam, history, and/or decision-making noted today, and, unless otherwise indicated, the interactions with patient, family, and staff as well as the review of records all occurred today. I also attest that the listed assessment and stated plan reflect my best clinical judgment today based on the combination of historical information, prior notes, and today's exam/ interactions. When time spent is documented, it refers only to time spent today by the signer, or if indicated, combined time spent today by collaborating physician/nurse practitioner. (LEONCIO BLACKMAN) Collaborating MD Comments d/w DESKTOP PUBLISHING OPERATOR agree with assessment and plan. (Tobi Marr MD) LEONCIO BLACKMAN-C August 19, 2016 14:43 Tobi Marr MD August 20, 2016 11:36
[2016-08-19] MEDS: SODIUM CHLORIDE 0.9% FLUSH 10 ML FLUSH IVF PRN (20:38)
[2016-08-20] VITALS (17 sets, daily range): BP systolic 116–152; BP diastolic 52–62; PULSE 64–85; RESP 16–31; TEMP 97.8–98.7; O2SAT 92–99
[2016-08-20] MEDS: PROPOFOL 1000 MG/100 ML INJ 100 ML IV SCH ×2 (00:03→06:27)
[2016-08-20] MEDS: NICARDIPINE IV SCH ×2 (00:04→06:27)
[2016-08-20] MEDS: SODIUM CHLORID 0.9% IV SCH ×2 (00:04→06:27)
[2016-08-20] MEDS: 3% SALINE INJ 500 ML IV SCH (00:04)
[2016-08-20] MEDS: LABETALOL HCL 100 MG/20 ML VIAL IV PUSH PRN ×5 (01:57→22:37)
[2016-08-20] MEDS: SODIUM CHLORIDE 0.9% FLUSH 10 ML FLUSH IVF PRN (01:57)
[2016-08-20] MEDS: RESP: ALBUTEROL 2.5 MG/IPRATROPIUM 0.5 MG NEB (SCH) INH ×4 (03:28→21:50)
[2016-08-20] MEDS: CHLORHEXIDINE GLUCONATE 2 % 1 PACK (2 CLOTHS) TOP SCH (04:14)
[2016-08-20 04:35] LABS: HEMATOCRIT 35.1 % (35.0-46.0); MEAN CELL VOLUME 93.1 FL (80.0-100.0); MEAN CORPUSCULAR HEMOGLOBIN 30.3 PG (27.0-34.0); MEAN CORPUSCULAR HGB CONC 32.6 % (32.0-36.0); PLATELET COUNT 108 TH/MM3 (150-450); RED BLOOD COUNT 3.77 MIL/MM3 (4.00-5.30); REVIEW FLAG FINAL; WHITE BLOOD COUNT 11.2 TH/MM3 (4.0-11.0)
[2016-08-20 04:55] LABS: MAGNESIUM 2.6 MG/DL (1.5-2.5); POTASSIUM 4.5 MEQ/L (3.5-5.1)
[2016-08-20] MEDS ORDERED: NOREPINEPHRINE 4 MG/4 ML AMP ONE (04:55)
[2016-08-20] MEDS ORDERED: NOREPINEPHRINE-DEXTROSE DRIP 250 ML IV SCH (05:00)
[2016-08-20] MEDS ORDERED: TERBUTALINE INJ 1 MG/ML AMP SQ PRN (05:00)
[2016-08-20 05:49] LABS: BLOOD GAS BASE EXCESS -13.2 mmol/L (-2-2); BLOOD GAS CARBOXYHEMOGLOBIN 0.9 % (0-4); BLOOD GAS HCO3 14 mmol/L (22-26); BLOOD GAS O2 HGB SATURATION 95 % (90-100); BLOOD GAS PCO2 37 mmHg (38-42); BLOOD GAS PO2 97 mmHg (61-120); BLOOD GAS TOTAL HGB 14.2 G/DL (12.0-16.0); TEMP CORR TO 98.6
[2016-08-20 05:50] LABS: CRITICAL VALUE YES; OXYGEN DEVICE VENT
[2016-08-20 05:53] LABS: DRAW SITE ALINE; FIO2 60 %; STAT NO; ULNAR PULSE PRESENT; VENT SETTINGS SEE COMMENTS
[2016-08-20] MEDS: INSULIN NovoLIN REGULAR SUPPLEMENTAL SCALE SQ SCH ×4 (06:00→17:14)
--- NOTE | 2016-08-20 06:42 | HHI.CCPN ---
Subjective Remarks/Hospital Course Hospital Course: This is a 46yF with history of "thyroid problems" and hypertension per her prior records from 2013. She presents after her family called 911 when they found her unresponsive this morning. Per EMS, her GCS was 3. She was intubated on scene. She arrives to the emergency department with a blood pressure of 330s/ 220s. Head CT demonstrates large right cerebellar intraparenchymal hemorrhage with extension into the ventricular system and early posterior fossa herniation. The patient is unresponsive and additional history is unobtainable. Subjective: 08/18: s/p decompressive posterior fossa craniectomy yesterday. overnight severely hypertensive, requiring cardene, labetalol, hydralazine, and low dose propofol. best neuro exam for RN: weakly w/d lower extremities, pupils reactive , +cough. this morning, Cr significantly elevated, likely secondary to acute illness and contrast load. net +3L/24h. 08/19: persistently encephalopathic. also very hypertensive, requiring cardene at 15 mg/hr as well as prn hydralazine/labetalol to keep sbp < 140. still with + cough, but minimal neuro exam. net +6.8L/24h, but KENYON continues to worsen. may have some underlying chronic renal insufficiency, with +proteinuria on admission , but unknown. Also has gram negative stanley UTI on admission. 08/20: Persistent metabolic acidosis from renal failure, etc. No neurological improvement. Ceftriaxone for UTI. Objective Vital Signs Date Time Temp Pulse Resp B/P Pulse Ox O2 Delivery O2 Flow Rate FiO2 08/20/16 06:00 67 08/20/16 04:00 98.3 19 116/52 94 08/20/16 04:00 40 08/19/16 19:00 Mechanical Ventilator Intake and Output 08/19/16 08/19/16 08/20/16 08:00 16:00 00:00 Intake Total 2767 ml 2412 ml 2709 ml Output Total 367.0 ml 373 ml 561 ml Balance 2400.0 ml 2039 ml 2148 ml Result Diagram: 08/20/16 0404 08/20/16 0404 Other Results Microbiology Date/Time Procedure Status Source Growth 08/17/16 08:00 Urine Culture - Final Complete Urine Clean Catch Escherichia Coli Laboratory Tests Test 08/20/16 05:38 Blood Gas Puncture Site DEVON Blood Gas Patient Temperature 98.6 Blood Gas HCO3 14 mmol/L (22-26) Blood Gas Base Excess -13.2 mmol/L (-2-2) Blood Gas Oxygen Saturation 95 % (90-100) Arterial Blood pH 7.18 (7.380-7.420) Arterial Blood Partial 37 mmHg (38-42) Pressure CO2 Arterial Blood Partial 97 mmHg Pressure O2 (61-120) Arterial Blood Oxygen Content 19.0 Vol % (12.0-20.0) Arterial Blood 0.9 % (0-4) Carboxyhemoglobin Arterial Blood Methemoglobin 1.0 % (0-2) Blood Gas Hemoglobin 14.2 G/DL (12.0-16.0) Oxygen Delivery Device VENT Blood Gas Ventilator Setting SEE COMMENTS Blood Gas Inspired Oxygen 60 % Imaging Last Impressions Head CT 08/17/16 0754 Signed Impressions: Service Date/Time: Wednesday, August 17, 2016 09:45 - CONCLUSION: 1. There is acute intraparenchymal hemorrhage in the right cerebellum measuring approximately 5.4 x 4 centimeters. The blood products extend into the ventricular system causing mild dilatation of the ventricles. 2. Mass effect from the posterior fossa hemorrhage results in local mass effect and likely upward transtentorial herniation and some degree of tonsillar herniation. These findings were relayed to Dr. Paredes via telephone at 9: 58 AM. Tyshawn Witt MD Chest X-Ray 08/17/16 0754 Signed Impressions: Service Date/Time: Wednesday, August 17, 2016 08:19 - CONCLUSION: Severe air space consolidation in the right lower lung zone with possible mild airspace opacity in the upper lung zones bilaterally. This could represent an infectious process in the appropriate clinical setting. Alternately, aspiration could have this appearance. Endotracheal tube is in appropriate position. Tyshawn Witt MD Neck CTA 08/17/16 0000 Signed Impressions: Service Date/Time: Wednesday, August 17, 2016 10:50 - CONCLUSION: 1. No significant abnormality is identified in the neck arterial vasculature. 2. Right pleural effusion with adjacent compressive atelectasis and/or consolidation. Tyshawn Witt MD Head CTA 08/17/16 0000 Signed Impressions: Service Date/Time: Wednesday, August 17, 2016 10:50 - CONCLUSION: No aneurysm or acute intracranial vascular abnormality is identified. Please refer to noncontrast head CT for description of the posterior fossa and ventricular blood products. Tyshawn Witt MD Objective Remarks GENERAL: Middle-aged female, lying in bed, intubated, unresponsive, critically ill HEENT: Pupils 2 mm, sluggishly reactive, conjugate. Normocephalic. dressing to occiput. EVD in place, sanguinous output, leveled at 5 cmh2o. Mucous membranes are moist NECK: Trachea is midline. There is no JVD. CHEST: Endotracheal tube in place. Equal chest rise. Clear to auscultation. AC /500/18/8/40% left SC TLC clean and dry, dressing intact. CARDIOVASCULAR: Normal rate, regular rhythm. Sinus by telemetry. ABDOMEN: Obese, soft, nontender, nondistended. No guarding. MUSCULOSKELETAL: Distal pulses 2+. No peripheral edema. right radial arterial line in place, dressing intact. NEUROLOGICAL: RASS -5. GCS 3. Pupils as above. -corneals, - doll's eyes, - gag. + cough. no movement of extremities for me to painful stimuli. A/P Assessment and Plan Assessment: 46yF with large posterior fossa intra-parenchymal hemorrhage with extension into the ventricles and initial evidence of upwards tentorial herniation. She also has associated organ dysfunction including hypertensive emergency, acute kidney injury. Her ICH score is 5, predicting essentially 100 % mortality rate. She is now s/p decompressive posterior fossa craniectomy . will continue to be aggressive for now. I have spoken with her and updated him that her prognosis is poor, and she may never wake up again. We will consult palliative care. Her KENYON continues to worsen, will send urine studies, renal ultrasound. get pulse contour analysis to ensure adequate cardiac output and oxygen delivery to the kidneys. Her acidosis is primarily non-gapped likely secondary to renal tubular acidosis and hyperchloremic acidosis. Plan by systems: Neurologic: Large right cerebellar intraparenchymal hemorrhage Status post posterior fossa decompressive craniectomy 08/17 Frequent neuro checks Hyperosmolar therapy Elevated Head of bed Avoidance of hypercarbia and hypoxia 3% at 30 mL/hr Serial sodiums Neurosurgery: Dr. Garza Respiratory: Acute hypoxic and hypercarbic respiratory failure Does not meet SBT criteria given intracranial hemorrhage and cerebral edema Wean FiO2 for goal SPO2 greater than 92% Avoid hypercarbia, hypoxia --daily abg's, goal paco2 30-40. End-tidal CO2 monitoring Vent bundle Nebs Cardiovascular: Hypertensive emergency Nicardipine, labetalol, hydralazine as needed for goal SBP less than 150 Renal: Acute kidney injury- worsening. Possible Chronic Renal Insufficiency Proteinuria -- Strict I/Os continue NS @ 120cc/hr --pulse contour analysis to ensure adequate oxygen delivery -- urine Na, Cr, eos, u/a with microscopy, renal ultrasound FEN/GI: Intravascular volume depletion- resolved. TF, Jevity 1.5, nutrition consult for goals. Normal saline at 120 cc/hr Hold on ICU electrolyte protocol given renal function. --daily BMP, phos Heme/ID: Urinary Tract Infection- uncomplicated, presented on admission, not catheter associated. -- u/a positive on admission -- start Rocephin 1gm iv q24h and await speciation. 3 days total duration should be adequate for uncomplicated UTI (anticipated stop date 08/22) Endocrine: Hyperglycemia of critical illness -- SSI, medium scale, every 6 Prophylaxis: GI Prophylaxis Protonix IV every 24 hours DVT Prophylaxis -- SCDs Holding pharmacologic DVT prophylaxis in the setting of acute head bleed Lines: Radial arterial line placed emergency department 08/17 left SC tlc 08/17 Lopez Dispo: Remain in the ICU. She remains critically ill. No improvement. This patient remains critically ill with one or more organ systems which are or may become a threat to life. I have spent in excess of 35 minutes discontinuously in the care and management of this patient. This time is exclusive of procedures, and includes, but is not limited to, evaluation of the patient, review of the medical record, discussions with family, consultants, nursing staff, or respiratory therapy, and documentation in the medical record. Harley Casey MD August 20, 2016 06:42
[2016-08-20] MEDS: SODIUM BICARBONATE 8.4% INJ 150 MEQ in WATER STERILE FOR INJ 850 ML IV SCH (07:49)
[2016-08-20] MEDS: CHLORHEXIDINE 0.12% (ORAL KIT) 15 ML CUP MT SCH ×2 (08:00→20:00)
[2016-08-20] MEDS: PANTOPRAZOLE SODIUM 40 MG VIAL IV SCH (08:34)
[2016-08-20] MEDS: DOCUSATE SODIUM 50 MG/SENNA 8.6 MG TAB PO SCH ×2 (08:35→21:04)
[2016-08-20] MEDS: cefTRIAXone INJ 1,000 MG in SODIUM CHLORIDE 0.9% INJ 100 ML IV SCH (08:35)
--- NOTE | 2016-08-20 09:47 | HHI.NSPN ---
(Clovis Tejeda) History Chief Complaint: intubated and sedated (Clovis Tejeda) Interval History 46-year-old female presented to the emergency room 08/17/16, hypertensive crisis with blood pressure in the 330/[address]. [address] scan with large primarily right cerebellar intracranial hemorrhage 08/17/2016: Suboccipital craniectomy, evacuation cerebellar intracranial hemorrhage. Placement of external ventricular drain 08/18/16: Remains intubated. Pupils 3 mm minimally reactive. No response to deep pain all extremities. CT scan head with mild to moderate residual/ recurrent cerebellar hemorrhage, improved compared to preoperative. 08/19/16: Pt sedated with Diprivan drip. Not opening eyes. Pupils 3mm reactive bilaterally. Ventriculostomy in place at 5 cm with bloody CSF. ICP 4- 5 range. 08/20/16: Patient off sedation since last night. No eye opening. Pupils 3 mm minimally reactive. Withdraws to painful stimuli for Nursing. Ventriculostomy in place with bloody CSF. ICP 2 when seen (Clovis Tejeda) System Review Comments Unable to obtain ROS due to patient's mental status. (Clovis Tejeda) Exam Results Vital Signs Date Time Temp Pulse Resp B/P Pulse Ox O2 Delivery O2 Flow Rate FiO2 08/20/16 09:06 94 60 08/20/16 07:00 Mechanical Ventilator 08/20/16 06:00 67 08/20/16 04:00 98.3 19 116/52 Intake and Output 08/19/16 08/19/16 08/20/16 08:00 16:00 00:00 Intake Total 2767 ml 2412 ml 2709 ml Output Total 367.0 ml 373 ml 561 ml Balance 2400.0 ml 2039 ml 2148 ml (Clovis Tejeda) Physical Examination Respiratory: CTAB w/o W/R/R, equal excursion, non-laboured, intubated & mechanically ventilated, Volume A/C. Cardiovascular: S1S2 w/RRR w/o M/G/R, radial & pedal pulses 2+ bilaterally, cap refill < 2 sec, pedal edema 3+ bilaterally. Monitor is sinus rhythm w/o any ectopy noted. Gastrointestinal: Obese, soft, nontender, positive bowel sounds, OGT w/enteral feeds. Integumentary: No cyanosis or erythema. Musculoskeletal: Extremities normal. Not following commands, moves LUE & BLE to noxious stimuli. No evident discolouration, deformity or clubbing. Neurological: Off sedation. Not opening eyes to noxious stimuli. PERRL 3 mm bilaterally minimally reactive. Not following commands, withdraws LUE & BLE to noxious stimuli for Nursing but not this practitioner. Upward Babinski reflex. Ventriculostomy drain in place at 5cm with blood tinged CSF. ICP 2. (Clovis Tejeda) Lab, Micro, Other Results Allergies Coded Allergies Type Severity Reaction Last Updated Verified UNOBTAINABLE 08/17/16 No Recent Impressions Renal Ultrasound 08/19/16 0000 Signed Impressions: Service Date/Time: Friday, August 19, 2016 10:55 - CONCLUSION: Atrophic right kidney with severe abnormal increased echotexture of the renal parenchyma bilaterally indicating medical renal disease. There is no hydronephrosis. Tyshawn Witt MD Head CT 08/18/16 06 Signed Impressions: Service Date/Time: Thursday, August 18, 2016 04:49 - CONCLUSION: 1. Placement of a left parietal ventriculostomy tube with its decrease in ventricular size since earlier exam. 2. Partial suboccipital craniectomy with decrease in size of posterior fossa hematoma. Intraventricular and subarachnoid hemorrhage remain. Previous lacunar infarcts the basal ganglia have a similar appearance. Mart Mar MD Chest X-Ray 08/18/16 06 Signed Impressions: Service Date/Time: Thursday, August 18, 2016 05:03 - CONCLUSION: 1. Endotracheal tube and nasogastric tube in satisfactory position. Left central line tip in superior vena cava. Mart Mar MD /////// 06:00 18:00 06:00 18:00 06:00 18:00 Intake Total 4611 ml 2798 ml 2318 ml 5179 ml 4387 ml Output Total 915 ml 330.0 ml 306 ml 740.0 ml 1027 ml Balance 3696 ml 2468.0 ml 2012 ml 4439.0 ml 3360 ml Intake IV Total 4611 ml 2798 ml 2318 ml 4548 ml 3509 ml Tube Feeding 631 ml 788 ml Other 90 ml Output Urine Total 850 ml 250 ml 250 ml 600 ml 875 ml Gastric Drainage Total 0 ml 0 ml 0 ml Tube Feeding Residual Discard 0 ml 0 ml 0 ml Drainage Total 65 ml 80 ml 56 ml 140 ml 152 ml # Bowel Movements 0 0 Laboratory Tests Test 08/17/16 08/17/16 08/17/16 08/17/16 10:30 12:01 17:28 17:46 Prothrombin Time 11.2 SEC Prothromb Time International 1.0 RATIO Ratio Activated Partial 26.6 SEC Thromboplast Time Nasal Screen MRSA (PCR) MRSA NOT DETECTED Sodium Level 140 MEQ/L 145 MEQ/L Serum Osmolality 312 MOSM/KG 319 MOSM/KG Blood Type A POSITIVE Antibody Screen NEGATIVE Blood Bank Comment Blood Gas Puncture Site ART LINE ART LINE Blood Gas Patient Temperature 98.6 98.6 Blood Gas HCO3 20 mmol/L 20 mmol/L Blood Gas Base Excess -5.6 mmol/L -5.1 mmol/L Blood Gas Oxygen Saturation 97 % 96 % Arterial Blood pH 7.29 7.32 Arterial Blood Partial 43 mmHg 40 mmHg Pressure CO2 Arterial Blood Partial 299 mmHg 110 mmHg Pressure O2 Arterial Blood Oxygen Content 23.3 Vol % 20.2 Vol % Arterial Blood 1.5 % 1.3 % Carboxyhemoglobin Arterial Blood Methemoglobin 0.9 % 1.0 % Blood Gas Hemoglobin 16.5 G/DL 14.9 G/DL Oxygen Delivery Device VENTILATOR VENTILATOR Blood Gas Ventilator Setting AC AC 28/500/PEEP8 28/500/PEEP8 Blood Gas Inspired Oxygen 100 % 70 % Test 08/18/16 08/18/16 08/18/16 08/18/16 00:20 05:25 09:28 11:45 Sodium Level 145 MEQ/L 145 MEQ/L 148 MEQ/L Serum Osmolality 324 MOSM/KG 328 MOSM/KG 327 MOSM/KG White Blood Count 14.2 TH/MM3 Red Blood Count 4.50 MIL/MM3 Hemoglobin 13.5 GM/DL Hematocrit 41.0 % Mean Corpuscular Volume 91.1 FL Mean Corpuscular Hemoglobin 29.9 PG Mean Corpuscular Hemoglobin 32.9 % Concent Red Cell Distribution Width 15.2 % Platelet Count 131 TH/MM3 Mean Platelet Volume 11.8 FL Potassium Level 4.9 MEQ/L Chloride Level 113 MEQ/L Carbon Dioxide Level 19.1 MEQ/L Anion Gap 13 MEQ/L Blood Urea Nitrogen 43 MG/DL Creatinine 3.70 MG/DL Estimat Glomerular Filtration 13 ML/MIN Rate Random Glucose 134 MG/DL Calcium Level 9.4 MG/DL Blood Gas Puncture Site ART LINE Blood Gas Patient Temperature 98.6 Blood Gas HCO3 15 mmol/L Blood Gas Base Excess -9.4 mmol/L Blood Gas Oxygen Saturation 98 % Arterial Blood pH 7.33 Arterial Blood Partial 30 mmHg Pressure CO2 Arterial Blood Partial 353 mmHg Pressure O2 Arterial Blood Oxygen Content 18.6 Vol % Arterial Blood 0.9 % Carboxyhemoglobin Arterial Blood Methemoglobin 1.1 % Blood Gas Hemoglobin 12.9 G/DL Oxygen Delivery Device VENTILATOR Blood Gas Ventilator Setting AC 26/500/PEEP8 Blood Gas Inspired Oxygen 50 % Test 08/18/16 08/18/16 08/18/16 08/19/16 16:50 18:05 23:05 00:57 Blood Gas Puncture Site ART LINE ART LINE Blood Gas Patient Temperature 98.6 98.6 Blood Gas HCO3 16 mmol/L 15 mmol/L Blood Gas Base Excess -9.7 mmol/L -10.4 mmol/L Blood Gas Oxygen Saturation 97 % 97 % Arterial Blood pH 7.29 7.28 Arterial Blood Partial 34 mmHg 33 mmHg Pressure CO2 Arterial Blood Partial 134 mmHg 139 mmHg Pressure O2 Arterial Blood Oxygen Content 17.8 Vol % 16.9 Vol % Arterial Blood 1.0 % 1.0 % Carboxyhemoglobin Arterial Blood Methemoglobin 1.1 % 1.2 % Blood Gas Hemoglobin 12.9 G/DL 12.3 G/DL Oxygen Delivery Device AC/20/500/PEEP8 VENTILATOR Blood Gas Inspired Oxygen 40 % 40 % Sodium Level 149 MEQ/L 152 MEQ/L Serum Osmolality 332 MOSM/KG 335 MOSM/KG Blood Gas Ventilator Setting AC 18/500/8PEEP Test 08/19/16 08/19/16 08/19/16 08/19/16 03:15 10:50 13:36 18:20 White Blood Count 13.9 TH/MM3 Red Blood Count 4.16 MIL/MM3 Hemoglobin 12.3 GM/DL Hematocrit 38.3 % Mean Corpuscular Volume 92.2 FL Mean Corpuscular Hemoglobin 29.6 PG Mean Corpuscular Hemoglobin 32.1 % Concent Red Cell Distribution Width 15.9 % Platelet Count 105 TH/MM3 Mean Platelet Volume 11.9 FL Sodium Level 152 MEQ/L 153 MEQ/L 156 MEQ/L Potassium Level 4.5 MEQ/L Chloride Level 121 MEQ/L Carbon Dioxide Level 16.7 MEQ/L Anion Gap 14 MEQ/L Blood Urea Nitrogen 51 MG/DL Creatinine 4.21 MG/DL Estimat Glomerular Filtration 11 ML/MIN Rate Random Glucose 148 MG/DL Serum Osmolality 334 MOSM/KG 342 MOSM/KG 343 MOSM/KG Calcium Level 9.5 MG/DL Phosphorus Level 4.7 MG/DL Urine Color YELLOW Urine Turbidity CLOUDY Urine pH 5.0 Urine Specific [place] 1.018 Urine Protein 30 mg/dL Urine Glucose (UA) NEG mg/dL Urine Ketones NEG mg/dL Urine Occult Blood NEG Urine Nitrite NEG Urine Bilirubin NEG Urine Urobilinogen LESS THAN 2.0 MG/DL Urine Leukocyte Esterase LARGE Urine RBC 9 /hpf Urine WBC /hpf Urine WBC Clumps FEW Urine Squamous Epithelial 10 /hpf Cells Urine Transitional Epithelial <1 /hpf Cells Urine Bacteria MOD /hpf Urine Eosinophils RARE /HPF Urine Random Creatinine 64.9 MG/DL Urine Random Sodium 44 MEQ/L Test 08/20/16 08/20/16 08/20/16 00:24 04:04 05:38 Sodium Level 156 MEQ/L 156 MEQ/L Serum Osmolality 347 MOSM/KG 348 MOSM/KG White Blood Count 11.2 TH/MM3 Red Blood Count 3.77 MIL/MM3 Hemoglobin 11.4 GM/DL Hematocrit 35.1 % Mean Corpuscular Volume 93.1 FL Mean Corpuscular Hemoglobin 30.3 PG Mean Corpuscular Hemoglobin 32.6 % Concent Red Cell Distribution Width 17.0 % Platelet Count 108 TH/MM3 Mean Platelet Volume 12.6 FL Potassium Level 4.5 MEQ/L Chloride Level 128 MEQ/L Carbon Dioxide Level 17.0 MEQ/L Anion Gap 11 MEQ/L Blood Urea Nitrogen 55 MG/DL Creatinine 4.60 MG/DL Estimat Glomerular Filtration 10 ML/MIN Rate Random Glucose 140 MG/DL Calcium Level 9.6 MG/DL Phosphorus Level 5.7 MG/DL Magnesium Level 2.6 MG/DL Blood Gas Puncture Site DEVON Blood Gas Patient Temperature 98.6 Blood Gas HCO3 14 mmol/L Blood Gas Base Excess -13.2 mmol/L Blood Gas Oxygen Saturation 95 % Arterial Blood pH 7.18 Arterial Blood Partial 37 mmHg Pressure CO2 Arterial Blood Partial 97 mmHg Pressure O2 Arterial Blood Oxygen Content 19.0 Vol % Arterial Blood 0.9 % Carboxyhemoglobin Arterial Blood Methemoglobin 1.0 % Blood Gas Hemoglobin 14.2 G/DL Oxygen Delivery Device VENT Blood Gas Ventilator Setting SEE COMMENTS Blood Gas Inspired Oxygen 60 % Vital Signs Date Time Temp Pulse Resp B/P Pulse Ox O2 Delivery O2 Flow Rate FiO2 08/20/16 09:06 94 60 08/20/16 07:00 93 Mechanical Ventilator 60 08/20/16 06:00 67 08/20/16 04:00 98.3 74 19 116/52 94 08/20/16 04:00 40 08/20/16 04:00 74 08/20/16 03:28 92 60 08/20/16 02:00 85 08/20/16 00:00 84 08/20/16 00:00 40 08/20/16 00:00 98.7 84 31 136/60 94 08/19/16 23:52 94 40 08/19/16 22:00 128/58 08/19/16 22:00 84 08/19/16 21:00 140/61 08/19/16 20:09 95 40 08/19/16 20:00 40 08/19/16 20:00 98.8 82 22 142/62 93 08/19/16 20:00 82 08/19/16 19:00 96 Mechanical Ventilator 40 08/19/16 18:00 79 08/19/16 16:00 66 08/19/16 16:00 40 08/19/16 16:00 98.3 66 21 137/61 93 08/19/16 15:41 95 40 08/19/16 14:00 81 08/19/16 12:00 81 08/19/16 12:00 98.7 82 21 137/61 96 08/19/16 12:00 40 08/19/16 11:34 96 40 08/19/16 10:00 81 08/19/16 08:12 98 40 08/19/16 08:00 98.3 88 20 143/62 98 08/19/16 08:00 40 08/19/16 08:00 85 08/19/16 07:00 97 Mechanical Ventilator 40 08/19/16 06:00 85 08/19/16 04:08 98 40 08/19/16 04:00 97.9 79 23 132/60 97 08/19/16 04:00 40 08/19/16 04:00 72 08/19/16 02:00 84 08/19/16 01:25 97 40 08/19/16 00:00 86 08/19/16 00:00 97.7 76 20 137/61 97 08/19/16 00:00 40 08/18/16 22:00 98 40 08/18/16 22:00 73 08/18/16 20:38 98 40 08/18/16 20:38 98 40 08/18/16 20:00 72 08/18/16 20:00 40 08/18/16 20:00 97.9 73 18 137/64 97 08/18/16 19:00 97 Mechanical Ventilator 40 08/18/16 16:03 97 40 08/18/16 16:00 97.8 71 20 131/62 97 08/18/16 16:00 71 08/18/16 13:08 97 40 08/18/16 12:00 75 08/18/16 12:00 97.8 75 26 132/65 97 08/18/16 09:40 98 40 08/18/16 09:23 98 50 08/18/16 08:00 98.5 77 28 134/64 98 08/18/16 08:00 50 08/18/16 08:00 77 08/18/16 06:00 72 08/18/16 05:54 98 50 08/18/16 04:50 99 100 08/18/16 04:00 68 08/18/16 04:00 60 08/18/16 04:00 98.0 68 26 130/66 99 08/18/16 03:47 98 60 08/18/16 02:00 72 08/18/16 00:00 97.9 68 26 133/66 94 08/18/16 00:00 68 08/17/16 22:10 99 60 08/17/16 22:00 68 08/17/16 20:15 60 08/17/16 20:15 98 60 08/17/16 20:00 97.9 68 28 126/102 98 08/17/16 20:00 72 08/17/16 20:00 60 08/17/16 19:00 98 Mechanical Ventilator 60 08/17/16 18:04 98 60 08/17/16 17:00 97.5 71 28 131/70 100 08/17/16 17:00 71 08/17/16 16:58 96 80 08/17/16 12:35 99 08/17/16 12:30 98 80 08/17/16 12:08 97 80 08/17/16 12:00 98.1 63 28 157/83 99 Manual Cuff/Auscultation 08/17/16 12:00 63 08/17/16 11:40 98 100 08/17/16 10:37 99 08/17/16 10:30 100 100 08/17/16 10:00 100 100 08/17/16 10:00 66 (Clovis Tejeda) Medical Decision Making Impression and Plan Impression: 1. Persistent severe neurologic deficit following suboccipital craniectomy and evacuation of cerebellar hematoma. 2. Hypertension POD # 3 () s/p: 1. Bilateral suboccipital craniectomy, evacuation of intracranial hemorrhage 2. Right occipital bur hole for ventriculostomy placement Plan: Continue ventriculostomy. Monitor ICPs Continue ventilatory support Follow-up CT scan this week if remains clinically stable. Non-chemical DVT prophylaxis Ulcer prophylaxis Continuing hypertensive medications. Nicardipine as needed. (Clovis Tejeda) Attending Statement The exam, history, and the medical decision-making described in the above note were completed with the assistance of the mid-level provider. I reviewed and agree with the findings presented. I attest that I had a [id number] encounter with the patient on the same day, and personally performed and documented my assessment and findings in the medical record. (Jalen Hensley MD) Clovis Tejeda August 20, 2016 09:47 Jalen Hensley MD August 20, 2016 16:46
[2016-08-20] MEDS: hydrALAZINE HCL 20 MG/ML VIAL IV PUSH PRN ×3 (12:59→16:38)
[2016-08-20] MEDS ORDERED: niCARdipine INJ 50 MG in SODIUM CHLOR 0.9% 250 ML INJ 250 ML IV SCH (15:30)
[2016-08-20] MEDS ORDERED: niCARdipine INJ 50 MG in SODIUM CHLOR 0.9% 250 ML INJ 230 ML IV SCH (15:45)
--- NOTE | 2016-08-20 15:46 | HHI.HCPN ---
Reason for visit a. To assist with evaluation and management of symptoms including: dyspnea, pain. b. To assist medical decision maker(s) with: better understanding of current medical conditions; weighing benefits/burdens of medical treatment options; making medical treatment decisions. . Subjective/Interval History Patient seen and examined in ICU. Spouse at bedside. Patient has been off sedation for > 12 hours per nursing staff. She does not open eyes. Withdraws to pain bilateral LEs. Slight twitching noted lower face and neck. Afebrile. Vital signs stable. On CPAP 60% FiO2. Worsening renal function, minimal urine output. Creatinine 4.6, BUN 55, GFR 10. Renal ultrasound atrophic right kidney with severe abnormal increased echotexture of the renal parenchyma bilaterally indicating medical renal disease. On Ceftriaxone for UTI. . Family/friend interactions Spoke with spouse at bedside. He again has a very simple understanding of condition. When discussing poor prognosis, he again becomes tearful saying she is young, he cannot live without her and tells me about the many family members he lost recently. He tells me he needs a few more days to see if she will get better. He desires continued aggressive care including FULL CODE and dialysis if needed. . Advance Directives Living Will: Never completed Health Care Surrogate: Never completed Durable Power of Cattle Rancher: Never completed Advance Directive Specifics Health Care Surrogate(s): Patient is currently incapacitated, will likely not regain capacity. According to [place] statutes, health care proxy decision-making falls to the patient's spouse. Objective Vital Signs Date Time Temp Pulse Resp B/P Pulse Ox O2 Delivery O2 Flow Rate FiO2 08/20/16 14:00 69 08/20/16 12:03 93 60 08/20/16 12:00 60 08/20/16 12:00 97.8 68 16 139/62 93 08/20/16 12:00 64 08/20/16 10:00 68 08/20/16 09:06 94 60 08/20/16 09:06 99 60 08/20/16 08:00 68 08/20/16 08:00 97.8 68 20 136/58 94 08/20/16 08:00 40 08/20/16 07:00 93 Mechanical Ventilator 60 08/20/16 06:00 67 08/20/16 04:00 98.3 74 19 116/52 94 08/20/16 04:00 40 08/20/16 04:00 74 08/20/16 03:28 92 60 08/20/16 02:00 85 08/20/16 00:00 84 08/20/16 00:00 40 08/20/16 00:00 98.7 84 31 136/60 94 08/19/16 23:52 94 40 08/19/16 22:00 128/58 08/19/16 22:00 84 08/19/16 21:00 140/61 08/19/16 20:09 95 40 08/19/16 20:00 40 08/19/16 20:00 98.8 82 22 142/62 93 08/19/16 20:00 82 08/19/16 19:00 96 Mechanical Ventilator 40 08/19/16 18:00 79 08/19/16 16:00 66 08/19/16 16:00 40 08/19/16 16:00 98.3 66 21 137/61 93 08/19/16 15:41 95 40 Intake & Output 08/20/16 08/20/16 07:00 19:00 Intake Total 4387 ml 1695 ml Output Total 1027 ml 291 ml Balance 3360 ml 1404 ml Intake IV Total 3509 ml 1262 ml Tube Feeding 788 ml 373 ml Other 90 ml 60 ml Output Urine Total 875 ml 200 ml Gastric Drainage Total 0 ml 0 ml Tube Feeding Residual Discard 0 ml 0 ml Drainage Total 152 ml 91 ml # Bowel Movements 0 0 Physical Exam CONSTITUTIONAL/GENERAL: This is an critically ill, overweight patient, she appears older than her actual age. On [facility] vent. TUBES/LINES/DRAINS: ETT, OG, PIV right AC, Right radial A line, Lopez, SCDs. SKIN: No jaundice, rashes, or lesions. Ecchymoses on upper extremities. No wounds seen anteriorly. Skin temperature appropriate. Not diaphoretic. EYES: Pupils sluggish. ENT: Unable to assess hearing. Nose without bleeding or purulent drainage. Unable to visualize throat due to tubes. CARDIOVASCULAR: Regular rate and rhythm without murmurs, gallops, or rubs. RESPIRATORY/CHEST: Symmetric, unlabored respirations. Clear to auscultation. Breath sounds equal bilaterally. No wheezes, rales, or rhonchi. GASTROINTESTINAL: Abdomen soft, protuberant. Distant bowel sounds. GENITOURINARY: Without palpable bladder distension. Lopez catheter in place. MUSCULOSKELETAL: Extremities with in trace edema. No mottling or clubbing. NEUROLOGICAL: Off sedation, does not open eyes. + withdraw to painful stimuli bilateral LEs. No spontaneous movement of extremities. PSYCHIATRIC: Off sedation. . Diagnostic Tests Laboratory Laboratory Tests Test 08/17/16 08/17/16 08/18/16 08/18/16 17:28 17:46 00:20 05:25 Sodium Level 145 MEQ/L 145 MEQ/L 145 MEQ/L (136-145) (136-145) (136-145) Serum Osmolality 319 MOSM/KG 324 MOSM/KG 328 MOSM/KG (275-295) (275-295) (275-295) Blood Gas Puncture Site ART LINE Blood Gas Patient Temperature 98.6 Blood Gas HCO3 20 mmol/L (22-26) Blood Gas Base Excess -5.1 mmol/L (-2-2) Blood Gas Oxygen Saturation 96 % (90-100) Arterial Blood pH 7.32 (7.380-7.420) Arterial Blood Partial 40 mmHg (38-42) Pressure CO2 Arterial Blood Partial 110 mmHg Pressure O2 (61-120) Arterial Blood Oxygen Content 20.2 Vol % (12.0-20.0) Arterial Blood 1.3 % (0-4) Carboxyhemoglobin Arterial Blood Methemoglobin 1.0 % (0-2) Blood Gas Hemoglobin 14.9 G/DL (12.0-16.0) Oxygen Delivery Device VENTILATOR Blood Gas Ventilator Setting AC 28/500/PEEP8 Blood Gas Inspired Oxygen 70 % White Blood Count 14.2 TH/MM3 (4.0-11.0) Red Blood Count 4.50 MIL/MM3 (4.00-5.30) Hemoglobin 13.5 GM/DL (11.6-15.3) Hematocrit 41.0 % (35.0-46.0) Mean Corpuscular Volume 91.1 FL (80.0-100.0) Mean Corpuscular Hemoglobin 29.9 PG (27.0-34.0) Mean Corpuscular Hemoglobin 32.9 % Concent (32.0-36.0) Red Cell Distribution Width 15.2 % (11.6-17.2) Platelet Count 131 TH/MM3 (150-450) Mean Platelet Volume 11.8 FL (7.0-11.0) Potassium Level 4.9 MEQ/L (3.5-5.1) Chloride Level 113 MEQ/L (98-107) Carbon Dioxide Level 19.1 MEQ/L (21.0-32.0) Anion Gap 13 MEQ/L (5-15) Blood Urea Nitrogen 43 MG/DL (7-18) Creatinine 3.70 MG/DL (0.50-1.00) Estimat Glomerular Filtration 13 ML/MIN (>89) Rate Random Glucose 134 MG/DL (74-106) Calcium Level 9.4 MG/DL (8.5-10.1) Test 08/18/16 08/18/16 08/18/16 08/18/16 09:28 11:45 16:50 18:05 Blood Gas Puncture Site ART LINE ART LINE Blood Gas Patient Temperature 98.6 98.6 Blood Gas HCO3 15 mmol/L 16 mmol/L (22-26) (22-26) Blood Gas Base Excess -9.4 mmol/L -9.7 mmol/L (-2-2) (-2-2) Blood Gas Oxygen Saturation 98 % (90-100) 97 % (90-100) Arterial Blood pH 7.33 7.29 (7.380-7.420) (7.380-7.420) Arterial Blood Partial 30 mmHg (38-42) 34 mmHg (38-42) Pressure CO2 Arterial Blood Partial 353 mmHg 134 mmHg Pressure O2 (61-120) (61-120) Arterial Blood Oxygen Content 18.6 Vol % 17.8 Vol % (12.0-20.0) (12.0-20.0) Arterial Blood 0.9 % (0-4) 1.0 % (0-4) Carboxyhemoglobin Arterial Blood Methemoglobin 1.1 % (0-2) 1.1 % (0-2) Blood Gas Hemoglobin 12.9 G/DL 12.9 G/DL (12.0-16.0) (12.0-16.0) Oxygen Delivery Device VENTILATOR AC//500/PEEP8 Blood Gas Ventilator Setting AC /500/PEEP8 Blood Gas Inspired Oxygen 50 % 40 % Sodium Level 148 MEQ/L 149 MEQ/L (136-145) (136-145) Serum Osmolality 327 MOSM/KG 332 MOSM/KG (275-295) (275-295) Test 08/18/16 08/19/16 08/19/16 08/19/16 23:05 00:57 03:15 10:50 Sodium Level 152 MEQ/L 152 MEQ/L (136-145) (136-145) Serum Osmolality 335 MOSM/KG 334 MOSM/KG (275-295) (275-295) Blood Gas Puncture Site ART LINE Blood Gas Patient Temperature 98.6 Blood Gas HCO3 15 mmol/L (22-26) Blood Gas Base Excess -10.4 mmol/L (-2-2) Blood Gas Oxygen Saturation 97 % (90-100) Arterial Blood pH 7.28 (7.380-7.420) Arterial Blood Partial 33 mmHg (38-42) Pressure CO2 Arterial Blood Partial 139 mmHg Pressure O2 (61-120) Arterial Blood Oxygen Content 16.9 Vol % (12.0-20.0) Arterial Blood 1.0 % (0-4) Carboxyhemoglobin Arterial Blood Methemoglobin 1.2 % (0-2) Blood Gas Hemoglobin 12.3 G/DL (12.0-16.0) Oxygen Delivery Device VENTILATOR Blood Gas Ventilator Setting AC 18/500/8PEEP Blood Gas Inspired Oxygen 40 % White Blood Count 13.9 TH/MM3 (4.0-11.0) Red Blood Count 4.16 MIL/MM3 (4.00-5.30) Hemoglobin 12.3 GM/DL (11.6-15.3) Hematocrit 38.3 % (35.0-46.0) Mean Corpuscular Volume 92.2 FL (80.0-100.0) Mean Corpuscular Hemoglobin 29.6 PG (27.0-34.0) Mean Corpuscular Hemoglobin 32.1 % Concent (32.0-36.0) Red Cell Distribution Width 15.9 % (11.6-17.2) Platelet Count 105 TH/MM3 (150-450) Mean Platelet Volume 11.9 FL (7.0-11.0) Potassium Level 4.5 MEQ/L (3.5-5.1) Chloride Level 121 MEQ/L (98-107) Carbon Dioxide Level 16.7 MEQ/L (21.0-32.0) Anion Gap 14 MEQ/L (5-15) Blood Urea Nitrogen 51 MG/DL (7-18) Creatinine 4.21 MG/DL (0.50-1.00) Estimat Glomerular Filtration 11 ML/MIN (>89) Rate Random Glucose 148 MG/DL (74-106) Calcium Level 9.5 MG/DL (8.5-10.1) Phosphorus Level 4.7 MG/DL (2.5-4.9) Urine Color YELLOW (YELLW/STRAW) Urine Turbidity CLOUDY (CLEAR) Urine pH 5.0 (5.0-8.5) Urine Specific [place] 1.018 (1.002-1.035) Urine Protein 30 mg/dL (NEG-TRACE) Urine Glucose (UA) NEG mg/dL (NEG) Urine Ketones NEG mg/dL (NEG) Urine Occult Blood NEG (NEG) Urine Nitrite NEG (NEG) Urine Bilirubin NEG (NEG) Urine Urobilinogen LESS THAN 2.0 MG/DL (LESS THAN 2.0) Urine Leukocyte Esterase LARGE (NEG) Urine RBC 9 /hpf (0-3) Urine WBC /hpf (0-5) Urine WBC Clumps FEW (NONE) Urine Squamous Epithelial 10 /hpf (0-5) Cells Urine Transitional Epithelial <1 /hpf (NONE) Cells Urine Bacteria MOD /hpf (NONE) Urine Eosinophils RARE /HPF (NONE SEEN) Urine Random Creatinine 64.9 MG/DL Urine Random Sodium 44 MEQ/L Test 08/19/16 08/19/16 08/20/16 08/20/16 13:36 18:20 00:24 04:04 Sodium Level 153 MEQ/L 156 MEQ/L 156 MEQ/L 156 MEQ/L (136-145) (136-145) (136-145) (136-145) Serum Osmolality 342 MOSM/KG 343 MOSM/KG 347 MOSM/KG 348 MOSM/KG (275-295) (275-295) (275-295) (275-295) White Blood Count 11.2 TH/MM3 (4.0-11.0) Red Blood Count 3.77 MIL/MM3 (4.00-5.30) Hemoglobin 11.4 GM/DL (11.6-15.3) Hematocrit 35.1 % (35.0-46.0) Mean Corpuscular Volume 93.1 FL (80.0-100.0) Mean Corpuscular Hemoglobin 30.3 PG (27.0-34.0) Mean Corpuscular Hemoglobin 32.6 % Concent (32.0-36.0) Red Cell Distribution Width 17.0 % (11.6-17.2) Platelet Count 108 TH/MM3 (150-450) Mean Platelet Volume 12.6 FL (7.0-11.0) Potassium Level 4.5 MEQ/L (3.5-5.1) Chloride Level 128 MEQ/L (98-107) Carbon Dioxide Level 17.0 MEQ/L (21.0-32.0) Anion Gap 11 MEQ/L (5-15) Blood Urea Nitrogen 55 MG/DL (7-18) Creatinine 4.60 MG/DL (0.50-1.00) Estimat Glomerular Filtration 10 ML/MIN (>89) Rate Random Glucose 140 MG/DL (74-106) Calcium Level 9.6 MG/DL (8.5-10.1) Phosphorus Level 5.7 MG/DL (2.5-4.9) Magnesium Level 2.6 MG/DL (1.5-2.5) Test 08/20/16 05:38 Blood Gas Puncture Site DEVON Blood Gas Patient Temperature 98.6 Blood Gas HCO3 14 mmol/L (22-26) Blood Gas Base Excess -13.2 mmol/L (-2-2) Blood Gas Oxygen Saturation 95 % (90-100) Arterial Blood pH 7.18 (7.380-7.420) Arterial Blood Partial 37 mmHg (38-42) Pressure CO2 Arterial Blood Partial 97 mmHg Pressure O2 (61-120) Arterial Blood Oxygen Content 19.0 Vol % (12.0-20.0) Arterial Blood 0.9 % (0-4) Carboxyhemoglobin Arterial Blood Methemoglobin 1.0 % (0-2) Blood Gas Hemoglobin 14.2 G/DL (12.0-16.0) Oxygen Delivery Device VENT Blood Gas Ventilator Setting SEE COMMENTS Blood Gas Inspired Oxygen 60 % Result Diagram: 08/20/16 0404 08/20/16 0404 Microbiology Microbiology Date/Time Procedure Status Source Growth 08/17/16 08:00 Urine Culture - Final Complete Urine Clean Catch Escherichia Coli . Imaging Last Impressions Renal Ultrasound 08/19/16 0000 Signed Impressions: Service Date/Time: Friday, August 19, 2016 10:55 - CONCLUSION: Atrophic right kidney with severe abnormal increased echotexture of the renal parenchyma bilaterally indicating medical renal disease. There is no hydronephrosis. Tyshawn Witt MD Head CT 08/18/16 0600 Signed Impressions: Service Date/Time: Thursday, August 18, 2016 04:49 - CONCLUSION: 1. Placement of a left parietal ventriculostomy tube with its decrease in ventricular size since earlier exam. 2. Partial suboccipital craniectomy with decrease in size of posterior fossa hematoma. Intraventricular and subarachnoid hemorrhage remain. Previous lacunar infarcts the basal ganglia have a similar appearance. Mart Mar MD Chest X-Ray 08/18/16 0600 Signed Impressions: Service Date/Time: Thursday, August 18, 2016 05:03 - CONCLUSION: 1. Endotracheal tube and nasogastric tube in satisfactory position. Left central line tip in superior vena cava. Mart Mar MD Neck CTA 08/17/16 0000 Signed Impressions: Service Date/Time: Wednesday, August 17, 2016 10:50 - CONCLUSION: 1. No significant abnormality is identified in the neck arterial vasculature. 2. Right pleural effusion with adjacent compressive atelectasis and/or consolidation. Tyshawn Witt MD Head CTA 08/17/16 0000 Signed Impressions: Service Date/Time: Wednesday, August 17, 2016 10:50 - CONCLUSION: No aneurysm or acute intracranial vascular abnormality is identified. Please refer to noncontrast head CT for description of the posterior fossa and ventricular blood products. Tyshawn Witt MD . Procedures * 08/17/16 - bilateral suboccipital craniectomy, evacuation of intracranial hemorrhage right occipital bur hole for ventriculostomy placement. * 08/17/16 - intubated. . Assessment and Plan Disease Oriented Problem List: (1) Intracranial hemorrhage (2) Hypertensive crisis (3) [id number] kidney injury (4) Hyperglycemia Symptom Scale: (1) Pain 0-10 Scale: Unable to quantify (2) Dyspnea 0-10 Scale: Unable to quantify Pertinent Non-Medical Issues Psychosocial: . No children. Spiritual: Christianity loyda. Legal: Patient is currently incapacitated, will likely not regain capacity. According to [place] statutes, health care proxy decision-making falls to the patient's spouse. Ethical issues impacting care: no known concerns at this time. . Important Contacts * Roland Davis, spouse/ HCP: [phone] * Savannah, mother * Tyshawn, brother: [phone] . Prognosis Overall prognosis appears poor for meaningful recovery. Code Status: Full Code Plan * Decision Maker: Patient is currently incapacitated, will likely not regain capacity. According to [place] statutes, health care proxy decision-making falls to the patient's spouse, Roland Davis. * FULL CODE * Spouse is from [place], I offered translation service he declines stating, he understands [place] (and our conversation) as he has been in [place] for more than 20 years. I am able to understand his wishes and he confirms my understanding of his wishes. * Discussed with nursing staff. * Palliative care met with spouse and family: Spoke with spouse at bedside. He again has a very simple understanding of condition. When discussing poor prognosis, he again becomes tearful saying she is young, he cannot live without her and tells me about the many family members he lost recently. He tells me he needs a few more days to see if she will get better. He desires continued aggressive care including FULL CODE and dialysis if needed. * SYMPTOMS: Pain: due to recent hemorrhage, surgery, hypertension. Currently on Diprivan. Dyspnea: Has underlying COPD, emphysema and asthma, on mech vent. No new medication recommendations at this time. * Palliative care will continue to follow throughout hospital course to assist with symptom management and clarification of goals as needed. . Attestation To help prompt me to consider important information that might be impacting today's encounter and assessment, information from prior notes written by myself or my colleagues may have been "brought forward" into today's note. My signature on this note, however, is an attestation that I personally performed the exam, history, and/or decision-making noted today, and, unless otherwise indicated, the interactions with patient, family, and staff as well as the review of records all occurred today. I also attest that the listed assessment and stated plan reflect my best clinical judgment today based on the combination of historical information, prior notes, and today's exam/ interactions. When time spent is documented, it refers only to time spent today by the signer, or if indicated, combined time spent today by collaborating physician/nurse practitioner. LEONCIO BLACKMAN August 20, 2016 15:46
[2016-08-20] MEDS: niCARdipine INJ 50 MG in SODIUM CHLOR 0.9% 250 ML INJ 230 ML IV SCH ×2 (16:12→22:37)
[2016-08-21] VITALS (16 sets, daily range): BP systolic 130–144; BP diastolic 52–65; PULSE 62–70; RESP 16–22; TEMP 98–98.2; O2SAT 91–96
[2016-08-21] MEDS: INSULIN NovoLIN REGULAR SUPPLEMENTAL SCALE SQ SCH ×4 (00:11→17:33)
[2016-08-21] MEDS: LABETALOL HCL 100 MG/20 ML VIAL IV PUSH PRN ×4 (01:31→10:16)
[2016-08-21] MEDS: niCARdipine INJ 50 MG in SODIUM CHLOR 0.9% 250 ML INJ 230 ML IV SCH ×4 (02:02→20:30)
[2016-08-21] MEDS: SODIUM BICARBONATE 8.4% INJ 150 MEQ in WATER STERILE FOR INJ 850 ML IV SCH (02:52)
[2016-08-21] MEDS: CHLORHEXIDINE GLUCONATE 2 % 1 PACK (2 CLOTHS) TOP SCH (04:00)
[2016-08-21] MEDS: RESP: ALBUTEROL 2.5 MG/IPRATROPIUM 0.5 MG NEB (SCH) INH ×3 (04:02→15:52)
[2016-08-21 05:43] LABS: BLOOD GAS BASE EXCESS -10.1 mmol/L (-2-2); BLOOD GAS CARBOXYHEMOGLOBIN 1.1 % (0-4); BLOOD GAS HCO3 16 mmol/L (22-26); BLOOD GAS O2 HGB SATURATION 92 % (90-100); BLOOD GAS OXYGEN CONTENT 15.2 Vol % (12.0-20.0); BLOOD GAS PCO2 36 mmHg (38-42); BLOOD GAS PO2 74 mmHg (61-120); BLOOD GAS TOTAL HGB 11.8 G/DL (12.0-16.0); TEMP CORR TO 98.6
[2016-08-21 05:43] LABS: HEMATOCRIT 36.3 % (35.0-46.0); MEAN CELL VOLUME 94.2 FL (80.0-100.0); MEAN CORPUSCULAR HEMOGLOBIN 29.1 PG (27.0-34.0); MEAN CORPUSCULAR HGB CONC 30.9 % (32.0-36.0); PLATELET COUNT 105 TH/MM3 (150-450); RED BLOOD COUNT 3.85 MIL/MM3 (4.00-5.30); RED CELL DISTRIBUTION WIDTH 17.1 % (11.6-17.2); REVIEW FLAG FINAL; WHITE BLOOD COUNT 11.4 TH/MM3 (4.0-11.0)
[2016-08-21 05:44] LABS: CRITICAL VALUE YES; OXYGEN DEVICE VENTILATOR
[2016-08-21 05:45] LABS: DRAW SITE ART LINE; FIO2 60 %; STAT NO; VENT SETTINGS AC/16/500/PEEP10
[2016-08-21] MEDS ORDERED: SODIUM BICARBONATE 8.4% INJ 50 MEQ/50 ML SYR IV PUSH ONE (06:15)
[2016-08-21 06:25] LABS: BICARBONATE 17.4 MEQ/L (21.0-32.0); POTASSIUM 4.7 MEQ/L (3.5-5.1)
[2016-08-21] MEDS ORDERED: SODIUM BICARBONATE 8.4% SOLN 50 MEQ/50 ML VIAL IV ONE (06:30)
[2016-08-21] MEDS: DEXTROSE 5% IN WATE 1000ML INJ 1,000 ML IV SCH ×2 (06:30→20:29)
--- NOTE | 2016-08-21 06:46 | HHI.CCPN ---
Subjective Remarks/Hospital Course Hospital Course: This is a 46yF with history of "thyroid problems" and hypertension per her prior records from 2013. She presents after her family called 911 when they found her unresponsive this morning. Per EMS, her GCS was 3. She was intubated on scene. She arrives to the emergency department with a blood pressure of 330s/ 220s. Head CT demonstrates large right cerebellar intraparenchymal hemorrhage with extension into the ventricular system and early posterior fossa herniation. The patient is unresponsive and additional history is unobtainable. Subjective: 08/18: s/p decompressive posterior fossa craniectomy yesterday. overnight severely hypertensive, requiring cardene, labetalol, hydralazine, and low dose propofol. best neuro exam for RN: weakly w/d lower extremities, pupils reactive , +cough. this morning, Cr significantly elevated, likely secondary to acute illness and contrast load. net +3L/24h. 08/19: persistently encephalopathic. also very hypertensive, requiring cardene at 15 mg/hr as well as prn hydralazine/labetalol to keep sbp < 140. still with + cough, but minimal neuro exam. net +6.8L/24h, but KENYON continues to worsen. may have some underlying chronic renal insufficiency, with +proteinuria on admission , but unknown. Also has gram negative stanley UTI on admission. 08/20: Persistent metabolic acidosis from renal failure, etc. No neurological improvement. Ceftriaxone for UTI. 08/21: We have concentrated her serum more than adequately and at this point it is probably impairing renal function. Though reluctantly, I will start some free water iv and follow her sodium very closely, assuring the decrease is slow and limited to around the 144 - 148 range. Objective Vital Signs Date Time Temp Pulse Resp B/P Pulse Ox O2 Delivery O2 Flow Rate FiO2 08/21/16 04:00 69 08/21/16 04:00 98.2 22 133/52 93 08/21/16 04:00 60 08/20/16 19:00 Mechanical Ventilator Intake and Output 08/20/16 08/20/16 08/21/16 08:00 16:00 00:00 Intake Total 1678 ml 1695 ml 1803 ml Output Total 466.0 ml 291 ml 476 ml Balance 1212.0 ml 1404 ml 1327 ml Result Diagram: 08/21/16 0524 08/20/16 1430 Other Results Laboratory Tests Test 08/21/16 05:25 Blood Gas Puncture Site ART LINE Blood Gas Patient Temperature 98.6 Blood Gas HCO3 16 mmol/L (22-26) Blood Gas Base Excess -10.1 mmol/L (-2-2) Blood Gas Oxygen Saturation 92 % (90-100) Arterial Blood pH 7.26 (7.380-7.420) Arterial Blood Partial 36 mmHg (38-42) Pressure CO2 Arterial Blood Partial 74 mmHg Pressure O2 (61-120) Arterial Blood Oxygen Content 15.2 Vol % (12.0-20.0) Arterial Blood 1.1 % (0-4) Carboxyhemoglobin Arterial Blood Methemoglobin 1.0 % (0-2) Blood Gas Hemoglobin 11.8 G/DL (12.0-16.0) Oxygen Delivery Device VENTILATOR Blood Gas Ventilator Setting AC/16/500/PEEP10 Blood Gas Inspired Oxygen 60 % Imaging Last Impressions Head CT 08/17/16 0754 Signed Impressions: Service Date/Time: Wednesday, August 17, 2016 09:45 - CONCLUSION: 1. There is acute intraparenchymal hemorrhage in the right cerebellum measuring approximately 5.4 x 4 centimeters. The blood products extend into the ventricular system causing mild dilatation of the ventricles. 2. Mass effect from the posterior fossa hemorrhage results in local mass effect and likely upward transtentorial herniation and some degree of tonsillar herniation. These findings were relayed to Dr. Paredes via telephone at 9: 58 AM. Tyshawn Witt MD Chest X-Ray 08/17/16 0754 Signed Impressions: Service Date/Time: Wednesday, August 17, 2016 08:19 - CONCLUSION: Severe air space consolidation in the right lower lung zone with possible mild airspace opacity in the upper lung zones bilaterally. This could represent an infectious process in the appropriate clinical setting. Alternately, aspiration could have this appearance. Endotracheal tube is in appropriate position. Tyshawn Witt MD Neck CTA 08/17/16 0000 Signed Impressions: Service Date/Time: Wednesday, August 17, 2016 10:50 - CONCLUSION: 1. No significant abnormality is identified in the neck arterial vasculature. 2. Right pleural effusion with adjacent compressive atelectasis and/or consolidation. Tyshawn Witt MD Head CTA 08/17/16 0000 Signed Impressions: Service Date/Time: Wednesday, August 17, 2016 10:50 - CONCLUSION: No aneurysm or acute intracranial vascular abnormality is identified. Please refer to noncontrast head CT for description of the posterior fossa and ventricular blood products. Tyshawn Witt MD Objective Remarks GENERAL: Middle-aged female, lying in bed, intubated, unresponsive, critically ill HEENT: Pupils 2 mm, sluggishly reactive, conjugate. Normocephalic. dressing to occiput. EVD in place, sanguinous output. Mucous membranes are moist NECK: Trachea is midline. No JVD. CHEST: Endotracheal tube in place. Equal chest rise. Clear to auscultation. PRVC/500/18/8/40% left SC TLC clean and dry, dressing intact. CARDIOVASCULAR: Normal rate, regular rhythm. Sinus by telemetry. ABDOMEN: Obese, soft, nontender, nondistended. No guarding. BS active. MUSCULOSKELETAL: Distal pulses 2+. No peripheral edema. right radial arterial line in place, dressing intact. NEUROLOGICAL: RASS -5. GCS 3. Pupils as above. - gag. + cough. withdraws lower extremities to painful stimuli. A/P Assessment and Plan Assessment: 46yF with large posterior fossa intra-parenchymal hemorrhage with extension into the ventricles and initial evidence of upwards tentorial herniation. She also has associated organ dysfunction including hypertensive emergency, acute kidney injury. Her ICH score is 5, predicting essentially 100 % mortality rate. She is now s/p decompressive posterior fossa craniectomy . will continue to be aggressive for now. I have spoken with her and updated him that her prognosis is poor, and she may never wake up again. We will consult palliative care. Her KENYON continues to worsen, will send urine studies, renal ultrasound. get pulse contour analysis to ensure adequate cardiac output and oxygen delivery to the kidneys. Her acidosis is primarily non-gapped likely secondary to renal tubular acidosis and hyperchloremic acidosis. Plan by systems: Neurologic: Large right cerebellar intraparenchymal hemorrhage Status post posterior fossa decompressive craniectomy 08/17 Frequent neuro checks Hyperosmolar therapy Elevated Head of bed Avoidance of hypercarbia and hypoxia d/c 3% at 30 mL/hr Serial sodiums Neurosurgery: Dr. Garza --Start free water slowly Respiratory: Acute hypoxic and hypercarbic respiratory failure Does not meet SBT criteria given intracranial hemorrhage and cerebral edema Wean FiO2 for goal SPO2 greater than 92% Avoid hypercarbia, hypoxia --daily abg's, goal paco2 30-40. End-tidal CO2 monitoring Vent bundle Nebs Cardiovascular: Hypertensive emergency Nicardipine, labetalol, hydralazine as needed for goal SBP less than 150 Renal: Acute kidney injury- worsening. Possible Chronic Renal Insufficiency Proteinuria -- Strict I/Os d/c NS @ 120cc/hr --pulse contour analysis to ensure adequate oxygen delivery -- urine Na, Cr, eos, u/a with microscopy, renal ultrasound FEN/GI: Intravascular volume depletion- resolved. TF, Jevity 1.5, nutrition consult for goals. Normal saline at 120 cc/hr Hold on ICU electrolyte protocol given renal function. --daily BMP, phos Heme/ID: Urinary Tract Infection- uncomplicated, presented on admission, not catheter associated. -- u/a positive on admission -- start Rocephin 1gm iv q24h and await speciation. 3 days total duration should be adequate for uncomplicated UTI (anticipated stop date 08/22) Endocrine: Hyperglycemia of critical illness -- SSI, medium scale, every 6 Prophylaxis: GI Prophylaxis Protonix IV every 24 hours DVT Prophylaxis -- SCDs Holding pharmacologic DVT prophylaxis in the setting of acute head bleed Lines: Radial arterial line placed emergency department 08/17 left SC tlc 08/17 Lopez Dispo: Remain in the ICU. She remains critically ill. No improvement. Overall impression: Minimal response after posterior fossa bleed requiring decompression. Remains critically ill and neurologically unstable. Critical Care 39 mins Harley Casey MD August 21, 2016 06:46
[2016-08-21] MEDS ORDERED: FUROSEMIDE 100 MG/10 ML VIAL IV PUSH ONE (07:15)
[2016-08-21] MEDS: CHLORHEXIDINE 0.12% (ORAL KIT) 15 ML CUP MT SCH ×2 (08:00→20:28)
--- NOTE | 2016-08-21 08:29 | RADRPT ---
EXAM DATE/TIME: 08/21/2016 07:18 [place] COMPARISON: CHEST SINGLE AP, August 18, 2016, 5:03. INDICATIONS : Short of breath. MEDICAL HISTORY : Hypertension. Chronic obstructive pulmonary disease. Cardiovascular SURGICAL HISTORY : Craniotomy. ENCOUNTER: Subsequent ACUITY: 4 - 6 days PAIN SCORE: Non-responsive. LOCATION: Bilateral chest FINDINGS: Examination is limited by the patient's condition. ET tube, central venous catheter are in good position. Tip of the nasogastric tube is not present. Left lung remains clear. There is increasing effusion on the right. Heart remains enlarged. CONCLUSION: 1. Interval increase in effusion on the right. Effusion is still small. 2. Support apparatus remains in good position. Jose Thompson MD FACR on August 21, 2016 at 7:47 Board Certified Radiologist. This report was verified electronically.
[2016-08-21] MEDS: cefTRIAXone INJ 1,000 MG in SODIUM CHLORIDE 0.9% INJ 100 ML IV SCH (08:37)
[2016-08-21] MEDS: amLODIPine BESYLATE 5 MG TAB PO SCH (08:38)
[2016-08-21] MEDS: PANTOPRAZOLE SODIUM 40 MG VIAL IV SCH (08:38)
[2016-08-21] MEDS: cloNIDine HCL 0.1 MG TAB PO SCH ×3 (08:38→20:28)
[2016-08-21] MEDS: DOCUSATE SODIUM 50 MG/SENNA 8.6 MG TAB PO SCH ×2 (08:38→20:28)
[2016-08-21] MEDS: hydrALAZINE HCL 50 MG TAB PO SCH ×3 (08:38→20:28)
--- NOTE | 2016-08-21 09:58 | HHI.NSPN ---
(Clovis Tejeda) History Chief Complaint: Unable to obtain ROS due to patient's mental status and being intubated. (Clovis Tejeda) Interval History 46-year-old female presented to the emergency room 08/17/16, hypertensive crisis with blood pressure in the 330/[address] scan with large primarily right cerebellar intracranial hemorrhage 08/17/2016: Suboccipital craniectomy, evacuation cerebellar intracranial hemorrhage. Placement of external ventricular drain 08/18/16: Remains intubated. Pupils 3 mm minimally reactive. No response to deep pain all extremities. CT scan head with mild to moderate residual/ recurrent cerebellar hemorrhage, improved compared to preoperative. 08/19/16: Pt sedated with Diprivan drip. Not opening eyes. Pupils 3mm reactive bilaterally. Ventriculostomy in place at 5 cm with bloody CSF. ICP 4- 5 range. 08/20/16: Patient off sedation since last night. No eye opening. Pupils 3 mm minimally reactive. Withdraws to painful stimuli for Nursing. Ventriculostomy in place with bloody CSF. ICP 2 when seen. 08/21/16: The patient remains of sedation. Nursing reports that the patient is localising with the LUE. Ventriculostomy still with bloody CSF. ICP is 4. ( Clovis Tejeda) System Review Comments Unable to obtain ROS due to patient's mental status and being intubated. ( Clovis Tejeda) Exam Results Vital Signs Date Time Temp Pulse Resp B/P Pulse Ox O2 Delivery O2 Flow Rate FiO2 08/21/16 08:37 93 80 08/21/16 08:00 98.0 65 17 143/65 08/21/16 07:00 Mechanical Ventilator Intake and Output 08/20/16 08/20/16 08/21/16 08:00 16:00 00:00 Intake Total 1678 ml 1695 ml 1803 ml Output Total 466.0 ml 291 ml 476 ml Balance 1212.0 ml 1404 ml 1327 ml (Clovis Tejeda) Physical Examination HEENT: Craniotomy incision well-approximated w/isaac, no evident drainage, erythema or streaking noted. Ventriculostomy insertion site w/o evident drainage , erythema or streaking. Respiratory: CTAB w/o W/R/R, equal excursion, non-laboured, intubated, on CPAP. Cardiovascular: S1S2 w/RRR w/o M/G/R, radial & pedal pulses 2+ bilaterally, cap refill < 2 sec, pedal edema 3+ bilaterally. Monitor is sinus rhythm w/o any ectopy noted. Gastrointestinal: Obese, soft, nontender, positive bowel sounds, OGT w/enteral feeds. Integumentary: No cyanosis or erythema. Musculoskeletal: Extremities normal. Not following commands, moves LUE & BLE to noxious stimuli. No evident discolouration, deformity or clubbing. Neurological: Off sedation. Not opening eyes to noxious stimuli. PERRL 3 mm bilaterally reactive. Not following commands, slight withdrawal LUE & BLE to noxious stimuli and trace movement RUE. Ventriculostomy drain in place at 5cm with blood tinged CSF. ICP 4. (Clovis Tejeda) Lab, Micro, Other Results Allergies Coded Allergies Type Severity Reaction Last Updated Verified UNOBTAINABLE 08/17/16 No Recent Impressions Renal Ultrasound 08/19/16 0000 Signed Impressions: Service Date/Time: Friday, August 19, 2016 10:55 - CONCLUSION: Atrophic right kidney with severe abnormal increased echotexture of the renal parenchyma bilaterally indicating medical renal disease. There is no hydronephrosis. Tyshawn Witt MD //////[id number]// 06:00 18:00 06: 18: 06: 18:00 Intake Total 2318 ml 5179 ml 4387 ml 1695 ml 3286 ml Output Total 306 ml 740.0 ml 1027 ml 291 ml 1004 ml Balance 2012 ml 4439.0 ml 3360 ml 1404 ml 2282 ml Intake IV Total 2318 ml 4548 ml 3509 ml 1262 ml 2410 ml Tube Feeding 631 ml 788 ml 373 ml 756 ml Other 90 ml 60 ml 120 ml Output Urine Total 250 ml 600 ml 875 ml 200 ml 850 ml Gastric Drainage Total 0 ml 0 ml 0 ml Tube Feeding Residual Discard 0 ml 0 ml 0 ml Drainage Total 56 ml 140 ml 152 ml 91 ml 154 ml # Bowel Movements 0 0 0 Laboratory Tests Test 08/18/16 08/18/16 08/18/16 08/18/16 11:45 16:50 18:05 23:05 Sodium Level 148 MEQ/L 149 MEQ/L 152 MEQ/L Serum Osmolality 327 MOSM/KG 332 MOSM/KG 335 MOSM/KG Blood Gas Puncture Site ART LINE Blood Gas Patient Temperature 98.6 Blood Gas HCO3 16 mmol/L Blood Gas Base Excess -9.7 mmol/L Blood Gas Oxygen Saturation 97 % Arterial Blood pH 7.29 Arterial Blood Partial 34 mmHg Pressure CO2 Arterial Blood Partial 134 mmHg Pressure O2 Arterial Blood Oxygen Content 17.8 Vol % Arterial Blood 1.0 % Carboxyhemoglobin Arterial Blood Methemoglobin 1.1 % Blood Gas Hemoglobin 12.9 G/DL Oxygen Delivery Device AC/20/500/PEEP8 Blood Gas Inspired Oxygen 40 % Test 08/19/16 08/19/16 08/19/16 08/19/16 00:57 03:15 10:50 13:36 Blood Gas Puncture Site ART LINE Blood Gas Patient Temperature 98.6 Blood Gas HCO3 15 mmol/L Blood Gas Base Excess -10.4 mmol/L Blood Gas Oxygen Saturation 97 % Arterial Blood pH 7.28 Arterial Blood Partial 33 mmHg Pressure CO2 Arterial Blood Partial 139 mmHg Pressure O2 Arterial Blood Oxygen Content 16.9 Vol % Arterial Blood 1.0 % Carboxyhemoglobin Arterial Blood Methemoglobin 1.2 % Blood Gas Hemoglobin 12.3 G/DL Oxygen Delivery Device VENTILATOR Blood Gas Ventilator Setting AC 18/500/8PEEP Blood Gas Inspired Oxygen 40 % White Blood Count 13.9 TH/MM3 Red Blood Count 4.16 MIL/MM3 Hemoglobin 12.3 GM/DL Hematocrit 38.3 % Mean Corpuscular Volume 92.2 FL Mean Corpuscular Hemoglobin 29.6 PG Mean Corpuscular Hemoglobin 32.1 % Concent Red Cell Distribution Width 15.9 % Platelet Count 105 TH/MM3 Mean Platelet Volume 11.9 FL Sodium Level 152 MEQ/L 153 MEQ/L Potassium Level 4.5 MEQ/L Chloride Level 121 MEQ/L Carbon Dioxide Level 16.7 MEQ/L Anion Gap 14 MEQ/L Blood Urea Nitrogen 51 MG/DL Creatinine 4.21 MG/DL Estimat Glomerular Filtration 11 ML/MIN Rate Random Glucose 148 MG/DL Serum Osmolality 334 MOSM/KG 342 MOSM/KG Calcium Level 9.5 MG/DL Phosphorus Level 4.7 MG/DL Urine Color YELLOW Urine Turbidity CLOUDY Urine pH 5.0 Urine Specific [place] 1.018 Urine Protein 30 mg/dL Urine Glucose (UA) NEG mg/dL Urine Ketones NEG mg/dL Urine Occult Blood NEG Urine Nitrite NEG Urine Bilirubin NEG Urine Urobilinogen LESS THAN 2.0 MG/DL Urine Leukocyte Esterase LARGE Urine RBC 9 /hpf Urine WBC /hpf Urine WBC Clumps FEW Urine Squamous Epithelial 10 /hpf Cells Urine Transitional Epithelial <1 /hpf Cells Urine Bacteria MOD /hpf Urine Eosinophils RARE /HPF Urine Random Creatinine 64.9 MG/DL Urine Random Sodium 44 MEQ/L Test 08/19/16 08/20/16 08/20/16 08/20/16 18:20 00:24 04:04 05:38 Sodium Level 156 MEQ/L 156 MEQ/L 156 MEQ/L Serum Osmolality 343 MOSM/KG 347 MOSM/KG 348 MOSM/KG White Blood Count 11.2 TH/MM3 Red Blood Count 3.77 MIL/MM3 Hemoglobin 11.4 GM/DL Hematocrit 35.1 % Mean Corpuscular Volume 93.1 FL Mean Corpuscular Hemoglobin 30.3 PG Mean Corpuscular Hemoglobin 32.6 % Concent Red Cell Distribution Width 17.0 % Platelet Count 108 TH/MM3 Mean Platelet Volume 12.6 FL Potassium Level 4.5 MEQ/L Chloride Level 128 MEQ/L Carbon Dioxide Level 17.0 MEQ/L Anion Gap 11 MEQ/L Blood Urea Nitrogen 55 MG/DL Creatinine 4.60 MG/DL Estimat Glomerular Filtration 10 ML/MIN Rate Random Glucose 140 MG/DL Calcium Level 9.6 MG/DL Phosphorus Level 5.7 MG/DL Magnesium Level 2.6 MG/DL Blood Gas Puncture Site DEVON Blood Gas Patient Temperature 98.6 Blood Gas HCO3 14 mmol/L Blood Gas Base Excess -13.2 mmol/L Blood Gas Oxygen Saturation 95 % Arterial Blood pH 7.18 Arterial Blood Partial 37 mmHg Pressure CO2 Arterial Blood Partial 97 mmHg Pressure O2 Arterial Blood Oxygen Content 19.0 Vol % Arterial Blood 0.9 % Carboxyhemoglobin Arterial Blood Methemoglobin 1.0 % Blood Gas Hemoglobin 14.2 G/DL Oxygen Delivery Device VENT Blood Gas Ventilator Setting SEE COMMENTS Blood Gas Inspired Oxygen 60 % Test 08/20/16 08/21/16 08/21/16 14:30 05:24 05:25 Sodium Level 157 MEQ/L 156 MEQ/L Serum Osmolality 353 MOSM/KG 356 MOSM/KG White Blood Count 11.4 TH/MM3 Red Blood Count 3.85 MIL/MM3 Hemoglobin 11.2 GM/DL Hematocrit 36.3 % Mean Corpuscular Volume 94.2 FL Mean Corpuscular Hemoglobin 29.1 PG Mean Corpuscular Hemoglobin 30.9 % Concent Red Cell Distribution Width 17.1 % Platelet Count 105 TH/MM3 Mean Platelet Volume 12.5 FL Potassium Level 4.7 MEQ/L Chloride Level 126 MEQ/L Carbon Dioxide Level 17.4 MEQ/L Anion Gap 13 MEQ/L Blood Urea Nitrogen 70 MG/DL Creatinine 4.87 MG/DL Estimat Glomerular Filtration 10 ML/MIN Rate Random Glucose 166 MG/DL Calcium Level 9.4 MG/DL Phosphorus Level 7.2 MG/DL Magnesium Level 3.0 MG/DL Blood Gas Puncture Site ART LINE Blood Gas Patient Temperature 98.6 Blood Gas HCO3 16 mmol/L Blood Gas Base Excess -10.1 mmol/L Blood Gas Oxygen Saturation 92 % Arterial Blood pH 7.26 Arterial Blood Partial 36 mmHg Pressure CO2 Arterial Blood Partial 74 mmHg Pressure O2 Arterial Blood Oxygen Content 15.2 Vol % Arterial Blood 1.1 % Carboxyhemoglobin Arterial Blood Methemoglobin 1.0 % Blood Gas Hemoglobin 11.8 G/DL Oxygen Delivery Device VENTILATOR Blood Gas Ventilator Setting AC/16/500/PEEP10 Blood Gas Inspired Oxygen 60 % Vital Signs Date Time Temp Pulse Resp B/P Pulse Ox O2 Delivery O2 Flow Rate FiO2 08/21/16 08:37 93 80 08/21/16 08:37 80 08/21/16 08:00 60 08/21/16 08:00 98.0 65 17 143/65 96 08/21/16 08:00 65 08/21/16 07:00 96 Mechanical Ventilator 100 08/21/16 06:00 65 08/21/16 04:00 69 08/21/16 04:00 98.2 68 22 133/52 93 08/21/16 04:00 60 08/21/16 02:00 66 08/21/16 01:22 92 60 08/21/16 00:00 60 08/21/16 00:00 70 08/21/16 00:00 98.2 68 16 134/58 92 08/20/16 22:00 71 08/20/16 22:00 60 08/20/16 21:52 93 60 08/20/16 21:52 95 60 08/20/16 20:00 60 08/20/16 20:00 69 08/20/16 20:00 98.2 77 18 152/62 95 08/20/16 19:00 92 Mechanical Ventilator 60 08/20/16 18:00 70 08/20/16 17:21 93 60 08/20/16 16:00 74 08/20/16 16:00 98.4 74 17 136/58 93 08/20/16 16:00 60 08/20/16 14:00 69 08/20/16 12:03 93 60 08/20/16 12:00 60 08/20/16 12:00 97.8 68 16 139/62 93 08/20/16 12:00 64 08/20/16 10:00 68 08/20/16 09:06 94 60 08/20/16 09:06 99 60 08/20/16 08:00 68 08/20/16 08:00 97.8 68 20 136/58 94 08/20/16 08:00 40 08/20/16 07:00 93 Mechanical Ventilator 60 08/20/16 06:00 67 08/20/16 04:00 98.3 74 19 116/52 94 08/20/16 04:00 40 08/20/16 04:00 74 08/20/16 03:28 92 60 08/20/16 02:00 85 08/20/16 00:00 84 08/20/16 00:00 40 08/20/16 00:00 98.7 84 31 136/60 94 08/19/16 23:52 94 40 08/19/16 22:00 128/58 08/19/16 22:00 84 08/19/16 21:00 140/61 08/19/16 20:09 95 40 08/19/16 20:00 40 08/19/16 20:00 98.8 82 22 142/62 93 08/19/16 20:00 82 08/19/16 19:00 96 Mechanical Ventilator 40 08/19/16 18:00 79 08/19/16 16:00 66 08/19/16 16:00 40 08/19/16 16:00 98.3 66 21 137/61 93 08/19/16 15:41 95 40 08/19/16 14:00 81 08/19/16 12:00 81 08/19/16 12:00 98.7 82 21 137/61 96 08/19/16 12:00 40 08/19/16 11:34 96 40 08/19/16 10:00 81 08/19/16 08:12 98 40 08/19/16 08:00 98.3 88 20 143/62 98 08/19/16 08:00 40 08/19/16 08:00 85 08/19/16 07:00 97 Mechanical Ventilator 40 08/19/16 06:00 85 08/19/16 04:08 98 40 08/19/16 04:00 97.9 79 23 132/60 97 08/19/16 04:00 40 08/19/16 04:00 72 08/19/16 02:00 84 08/19/16 01:25 97 40 08/19/16 00:00 86 08/19/16 00:00 97.7 76 20 137/61 97 08/19/16 00:00 40 08/18/16 22:00 98 40 08/18/16 22:00 73 08/18/16 20:38 98 40 08/18/16 20:38 98 40 08/18/16 20:00 72 08/18/16 20:00 40 08/18/16 20:00 97.9 73 18 137/64 97 08/18/16 19:00 97 Mechanical Ventilator 40 08/18/16 16:03 97 40 08/18/16 16:00 97.8 71 20 131/62 97 08/18/16 16:00 71 08/18/16 13:08 97 40 08/18/16 12:00 75 08/18/16 12:00 97.8 75 26 132/65 97 (Clovis Tejeda) Medical Decision Making Impression and Plan Impression: 1. Persistent severe neurologic deficit following suboccipital craniectomy and evacuation of cerebellar hematoma. 2. Hypertension POD # 4 () s/p: 1. Bilateral suboccipital craniectomy, evacuation of intracranial hemorrhage 2. Right occipital bur hole for ventriculostomy placement Plan: Continue ventriculostomy. Monitor ICPs Continue ventilatory support Follow-up CT scan in AM Non-chemical DVT prophylaxis Ulcer prophylaxis Continuing hypertensive medications. Nicardipine as needed. (Clovis Tejeda) Attending Statement The exam, history, and the medical decision-making described in the above note were completed with the assistance of the mid-level provider. I reviewed and agree with the findings presented. I attest that I had a [id number] encounter with the patient on the same day, and personally performed and documented my assessment and findings in the medical record. (Jalen Hensley MD) Clovis Tejeda August 21, 2016 09:58 Jalen Hensley MD Aug 24, 2016 14:47
--- NOTE | 2016-08-21 12:00 | HHI.HCPN ---
Reason for visit a. To assist with evaluation and management of symptoms including: dyspnea, pain. b. To assist medical decision maker(s) with: better understanding of current medical conditions; weighing benefits/burdens of medical treatment options; making medical treatment decisions. . Subjective/Interval History Patient seen and examined in ICU. Discussed with nurse and Dr. Spencer, patient with nonoliguric acute renal failure secondary to ATN or renal vascular disease or interstitial nephritis. Patient likely with chronic kidney disease disease, possible renal vascular disease and atrophic right kidney. Dr. Spencer indicates no acute urgent need for dialysis, if renal function continues to worsen may need dialysis. No family at bedside. Afebrile. On CPAP, FiO2 85%, PEEP 10. BP 144/64. Creatinine 4.87, sodium 156, serum osmolality 356. Patient remains off sedation. Patient withdraws bilateral lower extremity to painful stimuli, otherwise no significant change in neurologic status. She does not open her eyes, follow commands. No purposeful movements noted. . Family/friend interactions No family at bedside. Palliative care number previously provided. Will attempt to arrange family meeting in the coming days, as spouse indicated he needed a few days to see if she would get better. 4:30pm: Spouse, mother and brother at bedside. Also present Heidi Booker LCSW. Medical update provided. Spouse indicates again he can not bear to lose her. He tells me he lost 4 babies and a brother at [place]. He "wishes she was a FH." I explained the bleed in her brain was secondary to severe high blood pressure prior to her arrival and that we are doing everything we can to help her. He calms down and thanks me. When reviewed her renal failure and no plan for dialysis the brother tells us he will give her a kidney. I explained it was not that easy. The family has a very simple understanding of condition and I have difficult time helping them understand despite simple explanations. They are thankful and appreciative of updates, agreed to give another update after CT head is resulted 08/22/16. They remain hopeful for her recovery. Advance Directives Living Will: Never completed Health Care Surrogate: Never completed Durable Power of Diver Pumper: Never completed Advance Directive Specifics Health Care Surrogate(s): Patient is currently incapacitated, will likely not regain capacity. According to [place] statutes, health care proxy decision-making falls to the patient's spouse. Significant change in goals: FULL CODE. Spouse desires continued aggressive care. . Objective Vital Signs Date Time Temp Pulse Resp B/P Pulse Ox O2 Delivery O2 Flow Rate FiO2 08/21/16 10:00 64 08/21/16 08:37 93 80 08/21/16 08:37 80 08/21/16 08:00 60 08/21/16 08:00 98.0 65 17 143/65 96 08/21/16 08:00 65 08/21/16 07:00 96 Mechanical Ventilator 100 08/21/16 06:00 65 08/21/16 04:00 69 08/21/16 04:00 98.2 68 22 133/52 93 08/21/16 04:00 60 08/21/16 02:00 66 08/21/16 01:22 92 60 08/21/16 00:00 60 08/21/16 00:00 70 08/21/16 00:00 98.2 68 16 134/58 92 08/20/16 22:00 71 08/20/16 22:00 60 08/20/16 21:52 93 60 08/20/16 21:52 95 60 08/20/16 20:00 60 08/20/16 20:00 69 08/20/16 20:00 98.2 77 18 152/62 95 08/20/16 19:00 92 Mechanical Ventilator 60 08/20/16 18:00 70 08/20/16 17:21 93 60 08/20/16 16:00 74 08/20/16 16:00 98.4 74 17 136/58 93 08/20/16 16:00 60 08/20/16 14:00 69 08/20/16 12:03 93 60 08/20/16 12:00 60 08/20/16 12:00 97.8 68 16 139/62 93 08/20/16 12:00 64 Intake & Output 08/21/16 08/21/16 06:59 18:59 Intake Total 3286 ml Output Total 1004 ml Balance 2282 ml Intake IV Total 2410 ml Tube Feeding 756 ml Other 120 ml Output Urine Total 850 ml Drainage Total 154 ml # Bowel Movements 0 Physical Exam CONSTITUTIONAL/GENERAL: This is an critically ill, overweight patient, she appears older than her actual age. On mech vent. TUBES/LINES/DRAINS: ETT, OG, PIV right AC, Right radial A line, Lopez, SCDs. SKIN: No jaundice, rashes, or lesions. Ecchymoses on upper extremities. No wounds seen anteriorly. Skin temperature appropriate. Not diaphoretic. EYES: Pupils sluggish. ENT: Unable to assess hearing. Nose without bleeding or purulent drainage. Unable to visualize throat due to tubes. CARDIOVASCULAR: Regular rate and rhythm without murmurs, gallops, or rubs. RESPIRATORY/CHEST: Symmetric, unlabored respirations. Clear to auscultation. Breath sounds equal bilaterally. No wheezes, rales, or rhonchi. GASTROINTESTINAL: Abdomen soft, protuberant. Distant bowel sounds. GENITOURINARY: Without palpable bladder distension. Lopez catheter in place. MUSCULOSKELETAL: Extremities with in trace edema. No mottling or clubbing. NEUROLOGICAL: Off sedation, does not open eyes. + withdraw to painful stimuli bilateral LEs. No spontaneous movement of extremities. PSYCHIATRIC: Off sedation. . Diagnostic Tests Laboratory Laboratory Tests Test 08/18/16 08/18/16 08/18/16 08/19/16 16:50 18:05 23:05 00:57 Blood Gas Puncture Site ART LINE ART LINE Blood Gas Patient Temperature 98.6 98.6 Blood Gas HCO3 16 mmol/L 15 mmol/L (22-26) (22-26) Blood Gas Base Excess -9.7 mmol/L -10.4 mmol/L (-2-2) (-2-2) Blood Gas Oxygen Saturation 97 % (90-100) 97 % (90-100) Arterial Blood pH 7.29 7.28 (7.380-7.420) (7.380-7.420) Arterial Blood Partial 34 mmHg (38-42) 33 mmHg (38-42) Pressure CO2 Arterial Blood Partial 134 mmHg 139 mmHg Pressure O2 (61-120) (61-120) Arterial Blood Oxygen Content 17.8 Vol % 16.9 Vol % (12.0-20.0) (12.0-20.0) Arterial Blood 1.0 % (0-4) 1.0 % (0-4) Carboxyhemoglobin Arterial Blood Methemoglobin 1.1 % (0-2) 1.2 % (0-2) Blood Gas Hemoglobin 12.9 G/DL 12.3 G/DL (12.0-16.0) (12.0-16.0) Oxygen Delivery Device AC/20/500/PEEP8 VENTILATOR Blood Gas Inspired Oxygen 40 % 40 % Sodium Level 149 MEQ/L 152 MEQ/L (136-145) (136-145) Serum Osmolality 332 MOSM/KG 335 MOSM/KG (275-295) (275-295) [place] [address]/8PEEP Test 08/19/16 08/19/16 08/19/16 08/19/16 03:15 10:50 13:36 18:20 White Blood Count 13.9 TH/MM3 (4.0-11.0) Red Blood Count 4.16 MIL/MM3 (4.00-5.30) Hemoglobin 12.3 GM/DL (11.6-15.3) Hematocrit 38.3 % (35.0-46.0) Mean Corpuscular Volume 92.2 FL (80.0-100.0) Mean Corpuscular Hemoglobin 29.6 PG (27.0-34.0) Mean Corpuscular Hemoglobin 32.1 % Concent (32.0-36.0) Red Cell Distribution Width 15.9 % (11.6-17.2) Platelet Count 105 TH/MM3 (150-450) Mean Platelet Volume 11.9 FL (7.0-11.0) Sodium Level 152 MEQ/L 153 MEQ/L 156 MEQ/L (136-145) (136-145) (136-145) Potassium Level 4.5 MEQ/L (3.5-5.1) Chloride Level 121 MEQ/L (98-107) Carbon Dioxide Level 16.7 MEQ/L (21.0-32.0) Anion Gap 14 MEQ/L (5-15) Blood Urea Nitrogen 51 MG/DL (7-18) Creatinine 4.21 MG/DL (0.50-1.00) Estimat Glomerular Filtration 11 ML/MIN (>89) Rate Random Glucose 148 MG/DL (74-106) Serum Osmolality 334 MOSM/KG 342 MOSM/KG 343 MOSM/KG (275-295) (275-295) (275-295) Calcium Level 9.5 MG/DL (8.5-10.1) Phosphorus Level 4.7 MG/DL (2.5-4.9) Urine Color YELLOW (YELLW/STRAW) Urine Turbidity CLOUDY (CLEAR) Urine pH 5.0 (5.0-8.5) Urine Specific [place] 1.018 (1.002-1.035) Urine Protein 30 mg/dL (NEG-TRACE) Urine Glucose (UA) NEG mg/dL (NEG) Urine Ketones NEG mg/dL (NEG) Urine Occult Blood NEG (NEG) Urine Nitrite NEG (NEG) Urine Bilirubin NEG (NEG) Urine Urobilinogen LESS THAN 2.0 MG/DL (LESS THAN 2.0) Urine Leukocyte Esterase LARGE (NEG) Urine RBC 9 /hpf (0-3) Urine WBC /hpf (0-5) Urine WBC Clumps FEW (NONE) Urine Squamous Epithelial 10 /hpf (0-5) Cells Urine Transitional Epithelial <1 /hpf (NONE) Cells Urine Bacteria MOD /hpf (NONE) Urine Eosinophils RARE /HPF (NONE SEEN) Urine Random Creatinine 64.9 MG/DL Urine Random Sodium 44 MEQ/L Test 08/20/16 08/20/16 08/20/16 08/20/16 00:24 04:04 05:38 14:30 Sodium Level 156 MEQ/L 156 MEQ/L 157 MEQ/L (136-145) (136-145) (136-145) Serum Osmolality 347 MOSM/KG 348 MOSM/KG 353 MOSM/KG (275-295) (275-295) (275-295) White Blood Count 11.2 TH/MM3 (4.0-11.0) Red Blood Count 3.77 MIL/MM3 (4.00-5.30) Hemoglobin 11.4 GM/DL (11.6-15.3) Hematocrit 35.1 % (35.0-46.0) Mean Corpuscular Volume 93.1 FL (80.0-100.0) Mean Corpuscular Hemoglobin 30.3 PG (27.0-34.0) Mean Corpuscular Hemoglobin 32.6 % Concent (32.0-36.0) Red Cell Distribution Width 17.0 % (11.6-17.2) Platelet Count 108 TH/MM3 (150-450) Mean Platelet Volume 12.6 FL (7.0-11.0) Potassium Level 4.5 MEQ/L (3.5-5.1) Chloride Level 128 MEQ/L (98-107) Carbon Dioxide Level 17.0 MEQ/L (21.0-32.0) Anion Gap 11 MEQ/L (5-15) Blood Urea Nitrogen 55 MG/DL (7-18) Creatinine 4.60 MG/DL (0.50-1.00) Estimat Glomerular Filtration 10 ML/MIN (>89) Rate Random Glucose 140 MG/DL (74-106) Calcium Level 9.6 MG/DL (8.5-10.1) Phosphorus Level 5.7 MG/DL (2.5-4.9) Magnesium Level 2.6 MG/DL (1.5-2.5) Blood Gas Puncture Site DEVON Blood Gas Patient Temperature 98.6 Blood Gas HCO3 14 mmol/L (22-26) Blood Gas Base Excess -13.2 mmol/L (-2-2) Blood Gas Oxygen Saturation 95 % (90-100) Arterial Blood pH 7.18 (7.380-7.420) Arterial Blood Partial 37 mmHg (38-42) Pressure CO2 Arterial Blood Partial 97 mmHg Pressure O2 (61-120) Arterial Blood Oxygen Content 19.0 Vol % (12.0-20.0) Arterial Blood 0.9 % (0-4) Carboxyhemoglobin Arterial Blood Methemoglobin 1.0 % (0-2) Blood Gas Hemoglobin 14.2 G/DL (12.0-16.0) Oxygen Delivery Device VENT Blood Gas Ventilator Setting SEE COMMENTS Blood Gas Inspired Oxygen 60 % Test 08/21/16 08/21/16 05:24 05:25 White Blood Count 11.4 TH/MM3 (4.0-11.0) Red Blood Count 3.85 MIL/MM3 (4.00-5.30) Hemoglobin 11.2 GM/DL (11.6-15.3) Hematocrit 36.3 % (35.0-46.0) Mean Corpuscular Volume 94.2 FL (80.0-100.0) Mean Corpuscular Hemoglobin 29.1 PG (27.0-34.0) Mean Corpuscular Hemoglobin 30.9 % Concent (32.0-36.0) Red Cell Distribution Width 17.1 % (11.6-17.2) Platelet Count 105 TH/MM3 (150-450) Mean Platelet Volume 12.5 FL (7.0-11.0) Sodium Level 156 MEQ/L (136-145) Potassium Level 4.7 MEQ/L (3.5-5.1) Chloride Level 126 MEQ/L (98-107) Carbon Dioxide Level 17.4 MEQ/L (21.0-32.0) Anion Gap 13 MEQ/L (5-15) Blood Urea Nitrogen 70 MG/DL (7-18) Creatinine 4.87 MG/DL (0.50-1.00) Estimat Glomerular Filtration 10 ML/MIN (>89) Rate Random Glucose 166 MG/DL (74-106) Serum Osmolality 356 MOSM/KG (275-295) Calcium Level 9.4 MG/DL (8.5-10.1) Phosphorus Level 7.2 MG/DL (2.5-4.9) Magnesium Level 3.0 MG/DL (1.5-2.5) Blood Gas Puncture Site ART LINE Blood Gas Patient Temperature 98.6 Blood Gas HCO3 16 mmol/L (22-26) Blood Gas Base Excess -10.1 mmol/L (-2-2) Blood Gas Oxygen Saturation 92 % (90-100) Arterial Blood pH 7.26 (7.380-7.420) Arterial Blood Partial 36 mmHg (38-42) Pressure CO2 Arterial Blood Partial 74 mmHg Pressure O2 (61-120) Arterial Blood Oxygen Content 15.2 Vol % (12.0-20.0) Arterial Blood 1.1 % (0-4) Carboxyhemoglobin Arterial Blood Methemoglobin 1.0 % (0-2) Blood Gas Hemoglobin 11.8 G/DL (12.0-16.0) Oxygen Delivery Device VENTILATOR Blood Gas Ventilator Setting AC/16/500/PEEP10 Blood Gas Inspired Oxygen 60 % Result Diagram: 08/21/16 0524 08/21/16 0524 Microbiology Microbiology Date/Time Procedure Status Source Growth 08/17/16 08:00 Urine Culture - Final Complete Urine Clean Catch Escherichia Coli Imaging Last Impressions Renal Ultrasound 08/19/16 0000 Signed Impressions: Service Date/Time: Friday, August 19, 2016 10:55 - CONCLUSION: Atrophic right kidney with severe abnormal increased echotexture of the renal parenchyma bilaterally indicating medical renal disease. There is no hydronephrosis. Tyshawn Witt MD Head CT 08/18/16 0600 Signed Impressions: Service Date/Time: Thursday, August 18, 2016 04:49 - CONCLUSION: 1. Placement of a left parietal ventriculostomy tube with its decrease in ventricular size since earlier exam. 2. Partial suboccipital craniectomy with decrease in size of posterior fossa hematoma. Intraventricular and subarachnoid hemorrhage remain. Previous lacunar infarcts the basal ganglia have a similar appearance. Mart Mar MD Chest X-Ray 08/18/16 0600 Signed Impressions: Service Date/Time: Thursday, August 18, 2016 05:03 - CONCLUSION: 1. Endotracheal tube and nasogastric tube in satisfactory position. Left central line tip in superior vena cava. Mart Mar MD Neck CTA 08/17/16 0000 Signed Impressions: Service Date/Time: Wednesday, August 17, 2016 10:50 - CONCLUSION: 1. No significant abnormality is identified in the neck arterial vasculature. 2. Right pleural effusion with adjacent compressive atelectasis and/or consolidation. Tyshawn Witt MD Head CTA 08/17/16 0000 Signed Impressions: Service Date/Time: Wednesday, August 17, 2016 10:50 - CONCLUSION: No aneurysm or acute intracranial vascular abnormality is identified. Please refer to noncontrast head CT for description of the posterior fossa and ventricular blood products. Tyshawn Witt MD Procedures * 08/17/16 - bilateral suboccipital craniectomy, evacuation of intracranial hemorrhage right occipital bur hole for ventriculostomy placement. * 08/17/16 - intubated. . Assessment and Plan Disease Oriented Problem List: (1) Intracranial hemorrhage (2) Hypertensive crisis (3) Kfjxl-[id number] kidney injury (4) Hyperglycemia Symptom Scale: (1) Pain 0-10 Scale: Unable to quantify (2) Dyspnea 0-10 Scale: Unable to quantify Pertinent Non-Medical Issues Psychosocial: . No children. Spiritual: [employer]. Legal: Patient is currently incapacitated, will likely not regain capacity. According to [place] statutes, health care proxy decision-making falls to the patient's spouse. Ethical issues impacting care: no known concerns at this time. . Important Contacts * Roland Perez, spouse/ HCP: [phone] * Savannah, mother * Tyshawn, brother: [phone] . Prognosis Overall prognosis appears poor for meaningful recovery. Code Status: Full Code Plan * Decision Maker: Patient is currently incapacitated, will likely not regain capacity. According to [place] statutes, health care proxy decision-making falls to the patient's spouse, Roland Davis. * FULL CODE * Spouse is from [place], I offered translation service he declines stating, he understands [place] (and our conversation) as he has been in [place] for more than 20 years. I am able to understand his wishes and he confirms my understanding of his wishes. * Discussed with nursing staff and nephrology. * 4:30pm: Spouse, mother and brother at bedside. Also present Heidi Booker LCSW. Medical update provided. Spouse indicates again he can not bear to lose her. He tells me he lost 4 babies and a brother at [place]. He "wishes she was a FH." I explained the bleed in her brain was secondary to severe high blood pressure prior to her arrival and that we are doing everything we can to help her. He calms down and thanks me. When reviewed her renal failure and no plan for dialysis the brother tells us he will give her a kidney. I explained it was not that easy. The family has a very simple understanding of condition and I have difficult time helping them understand despite simple explanations. They are thankful and appreciative of updates, agreed to give another update after CT head is resulted 08/22/16. They remain hopeful for her recovery. Desires continued aggressive care including CODE. Palliative care will update family 08/22/[address] head. * SYMPTOMS: Pain: due to recent hemorrhage, surgery, hypertension. Currently on Diprivan. Dyspnea: Has underlying COPD, emphysema and asthma, on mech vent. No new medication recommendations at this time. * Palliative care will continue to follow throughout hospital course to assist with symptom management and clarification of goals as needed. . Attestation To help prompt me to consider important information that might be impacting today's encounter and assessment, information from prior notes written by myself or my colleagues may have been "brought forward" into today's note. My signature on this note, however, is an attestation that I personally performed the exam, history, and/or decision-making noted today, and, unless otherwise indicated, the interactions with patient, family, and staff as well as the review of records all occurred today. I also attest that the listed assessment and stated plan reflect my best clinical judgment today based on the combination of historical information, prior notes, and today's exam/ interactions. When time spent is documented, it refers only to time spent today by the signer, or if indicated, combined time spent today by collaborating physician/nurse practitioner. LEONCIO BLACKMAN August 21, 2016 12:00
--- NOTE | 2016-08-21 12:26 | MB ---
cc: NEO GARVEY MD DATE OF CONSULTATION: 08/21/2016 REASON FOR CONSULTATION Acute kidney injury with elevated BUN and creatinine. HISTORY OF PRESENT ILLNESS This is a 46-year-old female with past medical history of hypertension, history of thyroid disorder, who was brought in on August 17 with unresponsiveness. I was called to see the patient because of elevated BUN and creatinine. The patient has creatinine of 2.1 on presentation which has been gradually going up and now is 4.8. There is also increase in the sodium level. Her sodium level was normal and now it is 156. The patient came in here and she was diagnosed with very high blood pressure and she was found to have intracranial bleeding with bleeding in the right cerebellum and mass effect in the posterior fossa. The patient was intubated. She has been stabilized with her blood pressure now improving. The patient was seen by neurosurgery and she had a craniotomy done with evacuation of intracranial hemorrhage and right occipital bur hole. Unfortunately, there is not much improvement in her mental status. She is off sedation and has some movement on the left side but she is not following any commands and more flaccid on the right-side. She has decreased urine output but is improving now after she got the Lasix. PAST MEDICAL HISTORY 1. Hypertension. 2. Thyroid disorder. 3. Bronchial asthma. 4. COPD. PAST SURGICAL HISTORY 1. Just had craniotomy. 2. Oophorectomy. 3. Dermoid cyst removal. REVIEW OF SYSTEMS Review of systems cannot be taken since the patient is intubated and unresponsive. SOCIAL HISTORY The patient is . She is a chronic smoker, smokes from five cigarettes to three pack per day. Drinks one to two alcoholic beverages in a month. FAMILY HISTORY Family history is noncontributory. ALLERGIES She has no known documented allergies. MEDICATIONS Currently she is on: 1. Dextrose at 75 an hour. 2. Sodium bicarbonate 150 mEq in sterile water at 50 an hour. 3. Protonix 40 mg IV daily. 4. Amlodipine 5 mg once a day. 5. DuoNeb nebulizer. 6. Ceftriaxone 1 gram q. 24-hours. 7. Regular insulin sliding scale. 8. Clonidine 0.1 mg q. 8-hours. 9. Hydralazine 50 mg q. 8-hours. 10. Propofol as needed. 11. Nicardipine as needed. 12. Labetalol as needed. PHYSICAL EXAMINATION GENERAL: The patient is intubated and unresponsive. VITAL SIGNS: Last blood pressure is 143/65, temperature is 98, oxygen saturation is 93-96% on 80% FIO2. HEENT: Pupils are mid constricted, equal. Nonicteric sclerae. Conjunctivae pale. NECK: Supple. JVD is not elevated. LUNGS: The patient has bilateral decreased air entry with occasional wheezing and basilar rales. HEART: S1, S2 regular rhythm. ABDOMEN: Abdomen is distended, soft, lax. There is no tenderness. EXTREMITIES: There is mild pedal edema. INVESTIGATION WBC count is 11.4, hemoglobin 11.2, platelet count 105, sodium 156, potassium 4.7, chloride 126, bicarb 17.4, BUN 17, creatinine 4.8, phosphorus 7.2, magnesium 3.0. Serum osmolality is 356, INR 1.0. Urinalysis showing protein of 30 with large leukocyte esterase, RBC 9. Toxicology screen was negative. Urine culture showing E-coli. IMAGING STUDIES Ultrasound of the kidneys done which showed the left kidney is normal in size 12.7, the right one is small 6.6, no hydronephrosis. CT scan of the brain was done initially and it shows that the patient has posterior right cerebellum hemorrhage with mass effect in the posterior fossa. ASSESSMENT/PLAN 1. Cerebrovascular accident with intracranial hemorrhage. 2. Acute kidney injury with possibility of chronic kidney disease. 3. Hypernatremia. 4. Metabolic acidosis. 5. Hypertension, uncontrolled. 6. Respiratory failure. The patient has been nonoliguric and has acute renal failure. There is possibility of chronic kidney disease, possibly ___ because of renovascular disease and atrophic right kidney and now developed acute kidney injury. The acute kidney injury, the differential would be either ATN or the possibility of renovascular disease or interstitial nephritis. The patient has been nonoliguric. She is getting dextrose and also getting sodium bicarb and try to stabilize the blood pressure. There is no acute urgent need for dialysis at present but if things keep on getting worse, then she possibly will need dialysis. Palliative care has been following with the patient and been discussing with the family. Thank you for the consultation. I will follow the patient and further recommendation as needed. MD MAYO Kowalski/TLL /11:21 AM /11:59 AM
[2016-08-21 14:45] LABS: BLOOD GAS BASE EXCESS -9.1 mmol/L (-2-2); BLOOD GAS CARBOXYHEMOGLOBIN 0.8 % (0-4); BLOOD GAS HCO3 19 mmol/L (22-26); BLOOD GAS METHEMOGLOBIN 0.9 % (0-2); BLOOD GAS O2 HGB SATURATION 92 % (90-100); BLOOD GAS OXYGEN CONTENT 14.7 Vol % (12.0-20.0); BLOOD GAS PCO2 59 mmHg (38-42); BLOOD GAS PO2 84 mmHg (61-120); BLOOD GAS TOTAL HGB 11.3 G/DL (12.0-16.0); CRITICAL VALUE YES; OXYGEN DEVICE VENTILATOR; TEMP CORR TO 98.6; VENT SETTINGS PRVC16 600 PEEEP10 I
[2016-08-21 14:46] LABS: DRAW SITE ART LINE; FIO2 85 %; STAT NO
[2016-08-21] MEDS: RESP: ALBUTEROL 2.5 MG/IPRATROPIUM 0.5 MG NEB (PRN) INH (20:39)
[2016-08-22] VITALS (20 sets, daily range): BP systolic 135–160; BP diastolic 58–66; PULSE 54–68; RESP 18–27; TEMP 97.5–97.8; O2SAT 86–100
[2016-08-22] MEDS: INSULIN NovoLIN REGULAR SUPPLEMENTAL SCALE SQ SCH ×5 (00:25→23:42)
[2016-08-22] MEDS: RESP: ALBUTEROL 2.5 MG/IPRATROPIUM 0.5 MG NEB (PRN) INH (00:42)
--- NOTE | 2016-08-22 01:11 | RADRPT ---
EXAM DATE/TIME: 08/22/2016 00:49 [facility] COMPARISON: CHEST SINGLE AP, August 21, 2016, 7:18. INDICATIONS : Shortness of breath. MEDICAL HISTORY : Hypertension. Chronic obstructive pulmonary disease. Cardiovascular disease. SURGICAL HISTORY : Craniotomy. ENCOUNTER: Subsequent ACUITY: 1 week PAIN SCORE: Non-responsive. LOCATION: Bilateral chest FINDINGS: Endotracheal tube, nasogastric tube and central line are stable. There is persistent hazy pleural-par enchymal opacity lower right chest. Left lung is stable and grossly clear. Cardiac contours are gross ly stable. CONCLUSION: No significant change Tyshawn Benjamin MD on August 22, 2016 at 1:08 Board Certified Radiologist. This report was verified electronically.
[2016-08-22 03:57] LABS: HEMATOCRIT 36.6 % (35.0-46.0); MEAN CELL VOLUME 94.9 FL (80.0-100.0); MEAN CORPUSCULAR HEMOGLOBIN 29.6 PG (27.0-34.0); MEAN CORPUSCULAR HGB CONC 31.2 % (32.0-36.0); PLATELET COUNT 97 TH/MM3 (150-450); RED BLOOD COUNT 3.86 MIL/MM3 (4.00-5.30); RED CELL DISTRIBUTION WIDTH 17.2 % (11.6-17.2); WHITE BLOOD COUNT 8.6 TH/MM3 (4.0-11.0)
[2016-08-22] MEDS: LABETALOL HCL 100 MG/20 ML VIAL IV PUSH PRN (04:03)
[2016-08-22] MEDS ORDERED: ATROPINE SULFATE 1 MG/10 ML SYRINGE ONE (04:05)
[2016-08-22] MEDS ORDERED: EPINEPHrine HCL (1:10,000) 1 MG/10 ML SYRINGE ONE (04:05)
[2016-08-22 04:15] LABS: REVIEW FLAG FINAL
[2016-08-22 04:19] LABS: BICARBONATE 23.4 MEQ/L (21.0-32.0); MAGNESIUM 3.2 MG/DL (1.5-2.5); POTASSIUM 5.3 MEQ/L (3.5-5.1)
[2016-08-22] MEDS: CHLORHEXIDINE GLUCONATE 2 % 1 PACK (2 CLOTHS) TOP SCH (04:30)
[2016-08-22] MEDS: cloNIDine HCL 0.1 MG TAB PO SCH ×3 (06:38→21:05)
[2016-08-22] MEDS: hydrALAZINE HCL 50 MG TAB PO SCH ×2 (06:38→14:57)
[2016-08-22 07:23] LABS: BLOOD GAS BASE EXCESS -7.3 mmol/L (-2-2); BLOOD GAS CARBOXYHEMOGLOBIN 1.2 % (0-4); BLOOD GAS HCO3 20 mmol/L (22-26); BLOOD GAS METHEMOGLOBIN 0.9 % (0-2); BLOOD GAS O2 HGB SATURATION 87 % (90-100); BLOOD GAS OXYGEN CONTENT 14.3 Vol % (12.0-20.0); BLOOD GAS PCO2 53 mmHg (38-42); BLOOD GAS PO2 61 mmHg (61-120); BLOOD GAS TOTAL HGB 11.7 G/DL (12.0-16.0); TEMP CORR TO 98.6
[2016-08-22 07:24] LABS: CRITICAL VALUE YES; OXYGEN DEVICE VENT
[2016-08-22 07:27] LABS: DRAW SITE ALINE; FIO2 100 %; VENT SETTINGS SEE COMMENTS
[2016-08-22 07:28] LABS: STAT NO; ULNAR PULSE PRESENT
[2016-08-22 07:29] LABS: BLOOD GAS BASE EXCESS -7.3 mmol/L (-2-2); BLOOD GAS CARBOXYHEMOGLOBIN 1.2 % (0-4); BLOOD GAS HCO3 19 mmol/L (22-26); BLOOD GAS METHEMOGLOBIN 0.9 % (0-2); BLOOD GAS O2 HGB SATURATION 88 % (90-100); BLOOD GAS OXYGEN CONTENT 15.9 Vol % (12.0-20.0); BLOOD GAS PCO2 49 mmHg (38-42); BLOOD GAS PO2 62 mmHg (61-120); BLOOD GAS TOTAL HGB 12.8 G/DL (12.0-16.0); TEMP CORR TO 98.6
[2016-08-22 07:30] LABS: CRITICAL VALUE YES; OXYGEN DEVICE VENT
[2016-08-22 07:31] LABS: DRAW SITE ALINE; FIO2 100 %; STAT NO; ULNAR PULSE PRESENT; VENT SETTINGS SEE COMMENTS
--- NOTE | 2016-08-22 07:49 | HHI.CCPN ---
Subjective Remarks/Hospital Course Hospital Course: This is a 46yF with history of "thyroid problems" and hypertension per her prior records from 2013. She presents after her family called 911 when they found her unresponsive this morning. Per EMS, her GCS was 3. She was intubated on scene. She arrives to the emergency department with a blood pressure of 330s/ 220s. Head CT demonstrates large right cerebellar intraparenchymal hemorrhage with extension into the ventricular system and early posterior fossa herniation. The patient is unresponsive and additional history is unobtainable. Subjective: 08/18: s/p decompressive posterior fossa craniectomy yesterday. overnight severely hypertensive, requiring cardene, labetalol, hydralazine, and low dose propofol. best neuro exam for RN: weakly w/d lower extremities, pupils reactive , +cough. this morning, Cr significantly elevated, likely secondary to acute illness and contrast load. net +3L/24h. 08/19: persistently encephalopathic. also very hypertensive, requiring cardene at 15 mg/hr as well as prn hydralazine/labetalol to keep sbp < 140. still with + cough, but minimal neuro exam. net +6.8L/24h, but KENYON continues to worsen. may have some underlying chronic renal insufficiency, with +proteinuria on admission , but unknown. Also has gram negative stanley UTI on admission. 08/20: Persistent metabolic acidosis from renal failure, etc. No neurological improvement. Ceftriaxone for UTI. 08/21: We have concentrated her serum more than adequately and at this point it is probably impairing renal function. Though reluctantly, I will start some free water iv and follow her sodium very closely, assuring the decrease is slow and limited to around the 144 - 148 range. 08/22: Renal function unchanged, no improvement. Patient is minimally responsive. New left parietal lobe infarction today on head CT. Objective Vital Signs Date Time Temp Pulse Resp B/P Pulse Ox O2 Delivery O2 Flow Rate FiO2 08/22/16 06:00 62 08/22/16 05:45 100 08/22/16 04:01 89 08/22/16 04:00 97.6 20 143/58 08/21/16 19:00 Mechanical Ventilator Intake and Output 08/21/16 08/21/16 08/22/16 08:00 16:00 00:00 Intake Total 1483 ml 2374 ml 1879 ml Output Total 528 ml 930 ml 452 ml Balance 955 ml 1444 ml 1427 ml Result Diagram: 08/22/16 0338 08/22/16 0338 Other Results Laboratory Tests Test 08/21/16 08/22/16 08/22/16 14:25 05:00 06:29 Blood Gas Puncture Site ART LINE DEVON OSORIO Blood Gas Patient Temperature 98.6 98.6 98.6 Blood Gas HCO3 19 mmol/L 20 mmol/L 19 mmol/L (22-26) (22-26) (22-26) Blood Gas Base Excess -9.1 mmol/L -7.3 mmol/L -7.3 mmol/L (-2-2) (-2-2) (-2-2) Blood Gas Oxygen Saturation 92 % (90-100) 87 % (90-100) 88 % (90-100) Arterial Blood pH 7.13 7.19 7.22 (7.380-7.420) (7.380-7.420) (7.380-7.420) Arterial Blood Partial 59 mmHg (38-42) 53 mmHg (38-42) 49 mmHg (38-42) Pressure CO2 Arterial Blood Partial 84 mmHg 61 mmHg 62 mmHg Pressure O2 (61-120) (61-120) (61-120) Arterial Blood Oxygen Content 14.7 Vol % 14.3 Vol % 15.9 Vol % (12.0-20.0) (12.0-20.0) (12.0-20.0) Arterial Blood 0.8 % (0-4) 1.2 % (0-4) 1.2 % (0-4) Carboxyhemoglobin Arterial Blood Methemoglobin 0.9 % (0-2) 0.9 % (0-2) 0.9 % (0-2) Blood Gas Hemoglobin 11.3 G/DL 11.7 G/DL 12.8 G/DL (12.0-16.0) (12.0-16.0) (12.0-16.0) Oxygen Delivery Device VENTILATOR VENT VENT Blood Gas Ventilator Setting PRVC16 600 SEE COMMENTS SEE COMMENTS PEEEP10 I Blood Gas Inspired Oxygen 85 % 100 % 100 % Imaging Last Impressions Head CT 08/17/16 2234 Signed Impressions: Service Date/Time: Wednesday, August 17, 2016 09:45 - CONCLUSION: 1. There is acute intraparenchymal hemorrhage in the right cerebellum measuring approximately 5.4 x 4 centimeters. The blood products extend into the ventricular system causing mild dilatation of the ventricles. 2. Mass effect from the posterior fossa hemorrhage results in local mass effect and likely upward transtentorial herniation and some degree of tonsillar herniation. These findings were relayed to Dr. Paredes via telephone at 9: 58 AM. Tyshawn Witt MD Chest X-Ray 08/17/16 0754 Signed Impressions: Service Date/Time: Wednesday, August 17, 2016 08:19 - CONCLUSION: Severe air space consolidation in the right lower lung zone with possible mild airspace opacity in the upper lung zones bilaterally. This could represent an infectious process in the appropriate clinical setting. Alternately, aspiration could have this appearance. Endotracheal tube is in appropriate position. Tyshawn Witt MD Neck CTA 08/17/16 0000 Signed Impressions: Service Date/Time: Wednesday, August 17, 2016 10:50 - CONCLUSION: 1. No significant abnormality is identified in the neck arterial vasculature. 2. Right pleural effusion with adjacent compressive atelectasis and/or consolidation. Tyshawn Witt MD Head CTA 08/17/16 0000 Signed Impressions: Service Date/Time: Wednesday, August 17, 2016 10:50 - CONCLUSION: No aneurysm or acute intracranial vascular abnormality is identified. Please refer to noncontrast head CT for description of the posterior fossa and ventricular blood products. Tyshawn Witt MD Objective Remarks GENERAL: Middle-aged female, lying in bed, intubated, unresponsive, critically ill HEENT: Pupils 2 mm, sluggishly reactive, conjugate. Normocephalic. dressing to occiput. EVD in place, sanguinous output. Mucous membranes are moist NECK: Trachea is midline. No JVD. CHEST: Endotracheal tube in place. Equal chest rise. Clear to auscultation. PCV/550/18/8/40% left SC TLC clean and dry, dressing intact. CARDIOVASCULAR: Normal rate, regular rhythm. Sinus by telemetry. ABDOMEN: Obese, soft, nontender, nondistended. No guarding. BS active. MUSCULOSKELETAL: Distal pulses 2+. No peripheral edema. right radial arterial line in place, dressing intact. NEUROLOGICAL: RASS -5. GCS 4T. - gag. + cough. withdraws lower extremities to painful stimuli. A/P Assessment and Plan Assessment: 46yF with large posterior fossa intra-parenchymal hemorrhage with extension into the ventricles and initial evidence of upwards tentorial herniation. She also has associated organ dysfunction including hypertensive emergency, acute kidney injury. Her ICH score is 5, predicting essentially 100 % mortality rate. She is now s/p decompressive posterior fossa craniectomy . will continue to be aggressive for now. I have spoken with her and updated him that her prognosis is poor, and she may never wake up again. We will consult palliative care. Her KENYON continues to worsen, will send urine studies, renal ultrasound. get pulse contour analysis to ensure adequate cardiac output and oxygen delivery to the kidneys. Her acidosis is primarily non-gapped likely secondary to renal tubular acidosis and hyperchloremic acidosis. Plan by systems: Neurologic: Large right cerebellar intraparenchymal hemorrhage Status post posterior fossa decompressive craniectomy 08/17 Frequent neuro checks Hyperosmolar therapy Elevated Head of bed Avoidance of hypercarbia and hypoxia d/c 3% at 30 mL/hr Serial sodiums Neurosurgery: Dr. Garza --Start free water slowly Respiratory: Acute hypoxic and hypercarbic respiratory failure Does not meet SBT criteria given intracranial hemorrhage and cerebral edema Wean FiO2 for goal SPO2 greater than 92% Avoid hypercarbia, hypoxia --daily abg's, goal paco2 30-40. End-tidal CO2 monitoring Vent bundle Nebs Cardiovascular: Hypertensive emergency Nicardipine, labetalol, hydralazine as needed for goal SBP less than 150 Renal: Acute kidney injury- worsening. Possible Chronic Renal Insufficiency Proteinuria -- Strict I/Os d/c NS @ 120cc/hr --pulse contour analysis to ensure adequate oxygen delivery -- urine Na, Cr, eos, u/a with microscopy, renal ultrasound FEN/GI: Intravascular volume depletion- resolved. TF, Jevity 1.5, nutrition consult for goals. Normal saline at 120 cc/hr Hold on ICU electrolyte protocol given renal function. --daily BMP, phos Heme/ID: Urinary Tract Infection- uncomplicated, presented on admission, not catheter associated. -- u/a positive on admission -- start Rocephin 1gm iv q24h and await speciation. 3 days total duration should be adequate for uncomplicated UTI (anticipated stop date 08/22) Endocrine: Hyperglycemia of critical illness -- SSI, medium scale, every 6 Prophylaxis: GI Prophylaxis Protonix IV every 24 hours DVT Prophylaxis -- SCDs Holding pharmacologic DVT prophylaxis in the setting of acute head bleed Lines: Radial arterial line placed emergency department 08/17 left SC tlc 08/17 Lopez Dispo: Remain in the ICU. She remains critically ill. No improvement. Overall impression: Minimal response after posterior fossa bleed requiring decompression. Remains critically ill and neurologically unstable. Oxygenation deteriorating. Clinically worse. Hypovascularity left lung may represent PE but she is not a candidate for treatment. Critical Care 34 mins Harley Casey MD Aug 22, 2016 07:49
[2016-08-22] MEDS: CHLORHEXIDINE 0.12% (ORAL KIT) 15 ML CUP MT SCH ×2 (08:00→20:13)
[2016-08-22] MEDS: DEXTROSE 5% IN WATE 1000ML INJ 1,000 ML IV SCH ×2 (08:55→22:53)
--- NOTE | 2016-08-22 09:23 | HHI.NSPN ---
History Chief Complaint: Unable to obtain ROS due to patient's mental status and being intubated. Interval History 46-year-old female presented to the emergency room 08/17/16, hypertensive crisis with blood pressure in the 330/[address] scan with large primarily right cerebellar intracranial hemorrhage 08/17/2016: Suboccipital craniectomy, evacuation cerebellar intracranial hemorrhage. Placement of external ventricular drain 08/18/16: Remains intubated. Pupils 3 mm minimally reactive. No response to deep pain all extremities. CT scan head with mild to moderate residual/ recurrent cerebellar hemorrhage, improved compared to preoperative. 08/19/16: Pt sedated with Diprivan drip. Not opening eyes. Pupils 3mm reactive bilaterally. Ventriculostomy in place at 5 cm with bloody CSF. ICP 4- 5 range. 08/20/16: Patient off sedation since last night. No eye opening. Pupils 3 mm minimally reactive. Withdraws to painful stimuli for Nursing. Ventriculostomy in place with bloody CSF. ICP 2 when seen. 08/21/16: The patient remains of sedation. Nursing reports that the patient is localising with the LUE. Ventriculostomy still with bloody CSF. ICP is 4. 08/22/16: The patient is off sedation. She did withdraw on the left. The ventriculostomy is still with bloody CSF. Her ICP when seen was 5. She went for a repeat CT brain this morning. Yesterday afternoon the patient's neurological condition deteriorated and she was not withdrawing. A stat CT brain was ordered. An ABG was also obtained which demonstrated hypercapnia and she was placed back on a rate on the ventilatory. Her neurological status improved to what it was and the CT was cancelled by the Skin Installer. System Review Comments Unable to obtain ROS due to patient's mental status and being intubated. Exam Results Vital Signs Date Time Temp Pulse Resp B/P Pulse Ox O2 Delivery O2 Flow Rate FiO2 08/22/16 08:30 100 100 08/22/16 06:00 62 08/22/16 04:00 97.6 20 143/58 08/21/16 19:00 Mechanical Ventilator Intake and Output 08/21/16 08/21/16 08/22/16 08:00 16:00 00:00 Intake Total 1483 ml 2374 ml 1879 ml Output Total 528 ml 930 ml 452 ml Balance 955 ml 1444 ml 1427 ml Physical Examination HEENT: Craniotomy incision well-approximated w/isaac, no evident drainage, erythema or streaking noted. Ventriculostomy insertion site w/o evident drainage , erythema or streaking. Respiratory: CTAB w/o W/R/R, equal excursion, non-laboured, intubated, on pressure support AC. Cardiovascular: S1S2 w/RRR w/o M/G/R, radial & pedal pulses 2+ bilaterally, cap refill < 2 sec, pedal edema 3+ bilaterally. Monitor is sinus rhythm w/o any ectopy noted. Gastrointestinal: Obese, soft, nontender, bowel sounds not appreciated, OGT clapped. Genitourinary: Lopez catheter to BSD w/clear yellow urine. Integumentary: No cyanosis or erythema. Musculoskeletal: Extremities normal. Not following commands, moves LUE & BLE to noxious stimuli. No evident discolouration, deformity or clubbing. Neurological: Off sedation. Not opening eyes to noxious stimuli. PERRL 5 mm bilaterally reactive. Not following commands, slight withdrawal LUE & LLE to noxious stimuli and trace movement RLE but none to RUE. Upward Babinski response. Ventriculostomy drain in place at 5cm with blood tinged CSF. ICP 5. Lab, Micro, Other Results I personally reviewed the images for the CT brain this morning which appear to demonstrate continued evolution of the IVH & SAH. Allergies Coded Allergies Type Severity Reaction Last Updated Verified UNOBTAINABLE 08/17/16 No Recent Impressions Chest X-Ray 08/22/16 0000 Signed Impressions: Service Date/Time: August 00:49 - CONCLUSION: No significant change Tyshawn Benjamin MD Chest X-Ray 08/21/16 0000 Signed Impressions: Service Date/Time: Sunday, August 21, 2016 07:18 - CONCLUSION: 1. Interval increase in effusion on the right. Effusion is still small. 2. Support apparatus remains in good position. Jose Thompson MD FACR 5/30/175/30/175/31/175/31/176/1/176/17 06:00 18:00 06:00 18:00 06:00 18:00 Intake Total 4387 ml 1695 ml 3286 ml 2374 ml 3450 ml Output Total 1027 ml 291 ml 1004 ml 930 ml 799 ml Balance 3360 ml 1404 ml 2282 ml 1444 ml 2651 ml Intake IV Total 3509 ml 1262 ml 2410 ml 1754 ml 2469 ml Tube Feeding 788 ml 373 ml 756 ml 500 ml 581 ml Other 90 ml 60 ml 120 ml 120 ml 400 ml Output Urine Total 875 ml 200 ml 850 ml 850 ml 702 ml Gastric Drainage Total 0 ml 0 ml Tube Feeding Residual Discard 0 ml 0 ml 0 ml Drainage Total 152 ml 91 ml 154 ml 80 ml 97 ml # Bowel Movements 0 0 0 0 0 Laboratory Tests Test 08/19/16 08/19/16 08/19/16 08/20/16 10:50 13:36 18:20 00:24 Urine Color YELLOW Urine Turbidity CLOUDY Urine pH 5.0 Urine Specific Dendron 1.018 Urine Protein 30 mg/dL Urine Glucose (UA) NEG mg/dL Urine Ketones NEG mg/dL Urine Occult Blood NEG Urine Nitrite NEG Urine Bilirubin NEG Urine Urobilinogen LESS THAN 2.0 MG/DL Urine Leukocyte Esterase LARGE Urine RBC 9 /hpf Urine WBC /hpf Urine WBC Clumps FEW Urine Squamous Epithelial 10 /hpf Cells Urine Transitional Epithelial <1 /hpf Cells Urine Bacteria MOD /hpf Urine Eosinophils RARE /HPF Urine Random Creatinine 64.9 MG/DL Urine Random Sodium 44 MEQ/L Sodium Level 153 MEQ/L 156 MEQ/L 156 MEQ/L Serum Osmolality 342 MOSM/KG 343 MOSM/KG 347 MOSM/KG Test 08/20/16 08/20/16 08/20/16 08/21/16 04:04 05:38 14:30 05:24 White Blood Count 11.2 TH/MM3 11.4 TH/MM3 Red Blood Count 3.77 MIL/MM3 3.85 MIL/MM3 Hemoglobin 11.4 GM/DL 11.2 GM/DL Hematocrit 35.1 % 36.3 % Mean Corpuscular Volume 93.1 FL 94.2 FL Mean Corpuscular Hemoglobin 30.3 PG 29.1 PG Mean Corpuscular Hemoglobin 32.6 % 30.9 % Concent Red Cell Distribution Width 17.0 % 17.1 % Platelet Count 108 TH/MM3 105 TH/MM3 Mean Platelet Volume 12.6 FL 12.5 FL Sodium Level 156 MEQ/L 157 MEQ/L 156 MEQ/L Potassium Level 4.5 MEQ/L 4.7 MEQ/L Chloride Level 128 MEQ/L 126 MEQ/L Carbon Dioxide Level 17.0 MEQ/L 17.4 MEQ/L Anion Gap 11 MEQ/L 13 MEQ/L Blood Urea Nitrogen 55 MG/DL 70 MG/DL Creatinine 4.60 MG/DL 4.87 MG/DL Estimat Glomerular Filtration 10 ML/MIN 10 ML/MIN Rate Random Glucose 140 MG/DL 166 MG/DL Serum Osmolality 348 MOSM/KG 353 MOSM/KG 356 MOSM/KG Calcium Level 9.6 MG/DL 9.4 MG/DL Phosphorus Level 5.7 MG/DL 7.2 MG/DL Magnesium Level 2.6 MG/DL 3.0 MG/DL Blood Gas Puncture Site DEVON Blood Gas Patient Temperature 98.6 Blood Gas HCO3 14 mmol/L Blood Gas Base Excess -13.2 mmol/L Blood Gas Oxygen Saturation 95 % Arterial Blood pH 7.18 Arterial Blood Partial 37 mmHg Pressure CO2 Arterial Blood Partial 97 mmHg Pressure O2 Arterial Blood Oxygen Content 19.0 Vol % Arterial Blood 0.9 % Carboxyhemoglobin Arterial Blood Methemoglobin 1.0 % Blood Gas Hemoglobin 14.2 G/DL Oxygen Delivery Device VENT Blood Gas Ventilator Setting SEE COMMENTS Blood Gas Inspired Oxygen 60 % Test 08/21/16 08/21/16 08/22/16 08/22/16 05:25 14:25 03:38 05:00 Blood Gas Puncture Site ART LINE ART LINE DEVON Blood Gas Patient Temperature 98.6 98.6 98.6 Blood Gas HCO3 16 mmol/L 19 mmol/L 20 mmol/L Blood Gas Base Excess -10.1 mmol/L -9.1 mmol/L -7.3 mmol/L Blood Gas Oxygen Saturation 92 % 92 % 87 % Arterial Blood pH 7.26 7.13 7.19 Arterial Blood Partial 36 mmHg 59 mmHg 53 mmHg Pressure CO2 Arterial Blood Partial 74 mmHg 84 mmHg 61 mmHg Pressure O2 Arterial Blood Oxygen Content 15.2 Vol % 14.7 Vol % 14.3 Vol % Arterial Blood 1.1 % 0.8 % 1.2 % Carboxyhemoglobin Arterial Blood Methemoglobin 1.0 % 0.9 % 0.9 % Blood Gas Hemoglobin 11.8 G/DL 11.3 G/DL 11.7 G/DL Oxygen Delivery Device VENTILATOR VENTILATOR VENT Blood Gas Ventilator Setting AC/16/500/PEEP10 PRVC16 600 SEE COMMENTS PEEEP10 I Blood Gas Inspired Oxygen 60 % 85 % 100 % White Blood Count 8.6 TH/MM3 Red Blood Count 3.86 MIL/MM3 Hemoglobin 11.4 GM/DL Hematocrit 36.6 % Mean Corpuscular Volume 94.9 FL Mean Corpuscular Hemoglobin 29.6 PG Mean Corpuscular Hemoglobin 31.2 % Concent Red Cell Distribution Width 17.2 % Platelet Count 97 TH/MM3 Mean Platelet Volume 11.9 FL Sodium Level 155 MEQ/L Potassium Level 5.3 MEQ/L Chloride Level 122 MEQ/L Carbon Dioxide Level 23.4 MEQ/L Anion Gap 10 MEQ/L Blood Urea Nitrogen 85 MG/DL Creatinine 4.94 MG/DL Estimat Glomerular Filtration 9 ML/MIN Rate Random Glucose 156 MG/DL Calcium Level 9.9 MG/DL Phosphorus Level 8.7 MG/DL Magnesium Level 3.2 MG/DL Test 08/22/16 06:29 Blood Gas Puncture Site DEVON Blood Gas Patient Temperature 98.6 Blood Gas HCO3 19 mmol/L Blood Gas Base Excess -7.3 mmol/L Blood Gas Oxygen Saturation 88 % Arterial Blood pH 7.22 Arterial Blood Partial 49 mmHg Pressure CO2 Arterial Blood Partial 62 mmHg Pressure O2 Arterial Blood Oxygen Content 15.9 Vol % Arterial Blood 1.2 % Carboxyhemoglobin Arterial Blood Methemoglobin 0.9 % Blood Gas Hemoglobin 12.8 G/DL Oxygen Delivery Device VENT Blood Gas Ventilator Setting SEE COMMENTS Blood Gas Inspired Oxygen 100 % Vital Signs Date Time Temp Pulse Resp B/P Pulse Ox O2 Delivery O2 Flow Rate FiO2 08/22/16 08:30 100 100 08/22/16 08:17 87 100 08/22/16 08:05 87 100 08/22/16 06:00 62 08/22/16 05:45 100 08/22/16 04:01 89 100 08/22/16 04:00 85 08/22/16 04:00 97.6 56 20 143/58 86 08/22/16 04:00 56 08/22/16 02:00 85 08/22/16 02:00 67 08/22/16 02:00 97.8 68 18 144/60 90 08/22/16 00:51 90 85 08/22/16 00:00 64 08/21/16 22:00 64 08/21/16 20:40 92 85 08/21/16 20:00 85 08/21/16 20:00 98.1 62 18 130/56 91 08/21/16 20:00 62 08/21/16 19:00 96 Mechanical Ventilator 60 08/21/16 16:00 98.0 70 18 144/62 93 08/21/16 16:00 60 08/21/16 16:00 70 08/21/16 15:52 92 85 08/21/16 14:00 70 08/21/16 12:56 92 85 08/21/16 12:00 60 08/21/16 12:00 98.1 67 18 144/64 92 08/21/16 12:00 68 08/21/16 10:00 64 08/21/16 08:37 93 80 08/21/16 08:37 80 08/21/16 08:00 60 08/21/16 08:00 98.0 65 17 143/65 96 08/21/16 08:00 65 08/21/16 07:00 96 Mechanical Ventilator 100 08/21/16 06:00 65 08/21/16 04:00 69 08/21/16 04:00 98.2 68 22 133/52 93 08/21/16 04:00 60 08/21/16 02:00 66 08/21/16 01:22 92 60 08/21/16 00:00 60 08/21/16 00:00 70 08/21/16 00:00 98.2 68 16 134/58 92 08/20/16 22:00 71 08/20/16 22:00 60 08/20/16 21:52 93 60 08/20/16 21:52 95 60 08/20/16 20:00 60 08/20/16 20:00 69 08/20/16 20:00 98.2 77 18 152/62 95 08/20/16 19:00 92 Mechanical Ventilator 60 08/20/16 18:00 70 08/20/16 17:21 93 60 08/20/16 16:00 74 08/20/16 16:00 98.4 74 17 136/58 93 08/20/16 16:00 60 08/20/16 14:00 69 08/20/16 12:03 93 60 08/20/16 12:00 60 08/20/16 12:00 97.8 68 16 139/62 93 08/20/16 12:00 64 08/20/16 10:00 68 08/20/16 09:06 94 60 08/20/16 09:06 99 60 08/20/16 08:00 68 08/20/16 08:00 97.8 68 20 136/58 94 08/20/16 08:00 40 08/20/16 07:00 93 Mechanical Ventilator 60 08/20/16 06:00 67 08/20/16 04:00 98.3 74 19 116/52 94 08/20/16 04:00 40 08/20/16 04:00 74 08/20/16 03:28 92 60 08/20/16 02:00 85 08/20/16 00:00 84 08/20/16 00:00 40 08/20/16 00:00 98.7 84 31 136/60 94 08/19/16 23:52 94 40 08/19/16 22:00 128/58 08/19/16 22:00 84 08/19/16 21:00 140/61 08/19/16 20:09 95 40 08/19/16 20:00 40 08/19/16 20:00 98.8 82 22 142/62 93 08/19/16 20:00 82 08/19/16 19:00 96 Mechanical Ventilator 40 08/19/16 18:00 79 08/19/16 16:00 66 08/19/16 16:00 40 08/19/16 16:00 98.3 66 21 137/61 93 08/19/16 15:41 95 40 08/19/16 14:00 81 08/19/16 12:00 81 08/19/16 12:00 98.7 82 21 137/61 96 08/19/16 12:00 40 08/19/16 11:34 96 40 08/19/16 10:00 81 Medical Decision Making Impression and Plan Impression: 1. Persistent severe neurologic deficit following suboccipital craniectomy and evacuation of cerebellar hematoma. 2. Hypertension Neurologically stable but with continued severe deficit Sodium 155 this AM Hyperkalemia POD # 5 () s/p: 1. Bilateral suboccipital craniectomy, evacuation of intracranial hemorrhage 2. Right occipital bur hole for ventriculostomy placement Plan: Continue ventriculostomy. Monitor ICPs Continue ventilatory support Maintain sodium between 145 and 155 Non-chemical DVT prophylaxis Ulcer prophylaxis Continuing hypertensive medications. Nicardipine as needed. Critical care management per Skin Installer Clovis Tejeda Aug 22, 2016 09:23
--- NOTE | 2016-08-22 09:27 | RADRPT ---
EXAM DATE/TIME: 08/22/2016 08:37 [facility] COMPARISON: CT BRAIN W/O CONTRAST, August 18, 2016, 4:49. INDICATIONS : Follow up subrachoid hemorrhage . RADIATION DOSE: 56.35 CTDIvol (mGy) MEDICAL HISTORY : Hypertension. Cardiovascular disease Chronic obstructive pulmonary disease. SURGICAL HISTORY : Craniotomy. ENCOUNTER: Subsequent ACUITY: 4 - 6 days PAIN SCALE: Non-responsive LOCATION: cranial TECHNIQUE: Multiple contiguous axial images were obtained of the head. Using automated exposure control and adj ustment of the mA and/or kV according to patient size, radiation dose was kept as low as reasonably a chievable to obtain optimal diagnostic quality images. FINDINGS: Right cerebellar hemisphere hemorrhage is unchanged. Intraventricular component of the hemorrhage inv olving the lateral ventricles, third ventricle, and fourth ventricle also unchanged. Postsurgical fin dings again seen in the occipital region skull defect. Left parietal ventriculostomy catheter again s een. No change in the degree of mass effect. No midline shift. Decrease in size of the ventricles diffusely. New 3.8 x 2.2 cm hypodensity in the left parietal lobe with straight margins indicating infarct. CONCLUSION: 1. New left parietal lobe infarct. 2. No change in areas of intracranial hemorrhage. 3. Decrease in size of the ventricles diffusely. Ivan Wilkinson MD on August 22, 2016 at 9:21 Board Certified Radiologist. This report was verified electronically.
[2016-08-22] MEDS: PANTOPRAZOLE SODIUM 40 MG VIAL IV SCH (09:38)
[2016-08-22] MEDS: amLODIPine BESYLATE 5 MG TAB PO SCH (09:38)
[2016-08-22] MEDS: DOCUSATE SODIUM 50 MG/SENNA 8.6 MG TAB PO SCH ×2 (09:38→21:05)
--- NOTE | 2016-08-22 11:26 | HHI.NPPN ---
Subjective History of Present Illness 46-year-old female with past medical history of hypertension, history of thyroid disorder, who was brought in on August 17 with unresponsiveness. I was called to see the patient because of elevated BUN and creatinine. The patient has creatinine of 2.1 on presentation which has been gradually going up. Additional Remarks Patient remain intubated and on the vent, and unresponsive. Objective Data Data 08/21/16 08/22/16 19:00 07:00 Intake Total 2374 ml 3450 ml Output Total 930 ml 799 ml Balance 1444 ml 2651 ml Intake IV Total 1754 ml 2469 ml Tube Feeding 500 ml 581 ml Other 120 ml 400 ml Output Urine Total 850 ml 702 ml Tube Feeding Residual Discard 0 ml Drainage Total 80 ml 97 ml # Bowel Movements 0 0 Vital Signs Date Time Temp Pulse Resp B/P Pulse Ox O2 Delivery O2 Flow Rate FiO2 08/22/16 10:00 58 08/22/16 08:30 100 100 08/22/16 08:17 87 100 08/22/16 08:05 87 100 08/22/16 08:00 57 08/22/16 08:00 97.6 57 24 135/59 87 08/22/16 08:00 100 08/22/16 07:00 87 Mechanical Ventilator 100 08/22/16 06:00 62 08/22/16 05:45 100 08/22/16 04:01 89 100 08/22/16 04:00 85 08/22/16 04:00 97.6 56 20 143/58 86 08/22/16 04:00 56 08/22/16 02:00 85 08/22/16 02:00 67 08/22/16 02:00 97.8 68 18 144/60 90 08/22/16 00:51 90 85 08/22/16 00:00 64 08/21/16 22:00 64 08/21/16 20:40 92 85 08/21/16 20:00 85 08/21/16 20:00 98.1 62 18 130/56 91 08/21/16 20:00 62 08/21/16 19:00 96 Mechanical Ventilator 60 08/21/16 16:00 98.0 70 18 144/62 93 08/21/16 16:00 60 08/21/16 16:00 70 08/21/16 15:52 92 85 08/21/16 14:00 70 08/21/16 12:56 92 85 08/21/16 12:00 60 08/21/16 12:00 98.1 67 18 144/64 92 08/21/16 12:00 68 -: 08/22/16 0338 08/22/16 0338 Physical Exam General Appearance Remarks Intubated and unresponsive. Eyes Eye Exam: Pupils Equal Throat Throat Exam: Oral Mucosa [place] & Moist Neck Neck Exam: Neck Supple Pulmonary Resp Exam: Rhonchi, Decreased Bases, Diminished Breath Sounds, Poor Inspiratory Effort Cardiology CV Exam: Regular, Normal Sinus Rhythm Gastrointestinal/Abdomen GI Exam: Soft, Non-Tender, Bowel Sounds Present, Distended Extremeties Extremities Exam: Moderate Edema, Pitting Edema Neurologic Neuro Exam: Unresponsive Assessment/Plan Assessment Summary: KEN[place]ON/Acute Renal Failure Electrolyte Assessment: Hypernatremia, Metabolic Acidosis Problem List: (1) Hypertensive crisis (2) Intracranial hemorrhage (3) Hyperglycemia (4) Hypoxemia (5) Respiratory failure (6) Yeeyh-ww-thkylzo kidney injury Plan Patient has been non oliguric. BP is better, still on Nicardipine infusion. Urine out put is adequate. Na. is 155, Creatinine almost same. Started on D5W, also on naHco3. No urgent need of Dialysis. Follow urine out put, and use diuretics as needed. D/W the at bed side. Tejas Spencer MD Aug 22, 2016 11:26
[2016-08-22 15:39] LABS: BLOOD GAS BASE EXCESS -5.6 mmol/L (-2-2); BLOOD GAS CARBOXYHEMOGLOBIN 1.2 % (0-4); BLOOD GAS HCO3 20 mmol/L (22-26); BLOOD GAS METHEMOGLOBIN 0.8 % (0-2); BLOOD GAS O2 HGB SATURATION 87 % (90-100); BLOOD GAS OXYGEN CONTENT 13.9 Vol % (12.0-20.0); BLOOD GAS PCO2 43 mmHg (38-42); BLOOD GAS PO2 61 mmHg (61-120); BLOOD GAS TOTAL HGB 11.3 G/DL (12.0-16.0); CRITICAL VALUE YES; OXYGEN DEVICE VENTILATOR; TEMP CORR TO 98.6
[2016-08-22 15:40] LABS: DRAW SITE ART LINE; FIO2 100 %; NUMBER OF ARTERIAL PUNCTURES 0; STAT NO; ULNAR PULSE PRESENT; VENT SETTINGS PC/AC
[2016-08-22] MEDS: LABETALOL HCL 200 MG TAB PO SCH ×2 (16:00→23:42)
--- NOTE | 2016-08-22 16:10 | HHI.HCPN ---
Reason for visit a. To assist with evaluation and management of symptoms including: dyspnea, pain. b. To assist medical decision maker(s) with: better understanding of current medical conditions; weighing benefits/burdens of medical treatment options; making medical treatment decisions. . Subjective/Interval History Patient seen and examined in ICU. Discussed with nursing and respiratory staff. Afebrile. Off sedation. Remains on mech vent, FiO2 100%, oxygen sats only 86%. Heart rate 50's. BP 152/64. Creatinine 4.94, sodium 155, serum osmolality 356. CT head reveals new left parietal lobe infarct measuring 3.8 x 2.2 cm, no new intracranial hemorrhage, decrease in size of ventricles. Eyes open slightly, does not blink to threat or track. No purposeful movements noted. . Family/friend interactions Spoke with spouse at bedside, medical update provided including worsening renal function, respiratory status worsening and new left parietal infarct. He continues to hope she will get better, he does not seem to understand the complexity of her situation. I explained she will not likely survive this hospitalization. . Advance Directives Living Will: Never completed Health Care Surrogate: Never completed Durable Power of Clinical Support Nurse: Never completed Advance Directive Specifics Health Care Surrogate(s): Patient is currently incapacitated, will likely not regain capacity. According to [place] statutes, health care proxy decision-making falls to the patient's spouse. Significant change in goals: FULL CODE. Desires continued aggressive care. I do not foresee goals changing given the simple understanding in this family, brother asks if he can donate his kidney or part of his brain on prior conversations. The family continues to state they do not know how they will live without her. . Objective Vital Signs Date Time Temp Pulse Resp B/P Pulse Ox O2 Delivery O2 Flow Rate FiO2 08/22/16 15:25 86 100 08/22/16 14:00 54 08/22/16 12:00 100 08/22/16 12:00 97.5 56 24 152/64 87 08/22/16 12:00 56 08/22/16 11:50 88 100 08/22/16 10:00 58 08/22/16 08:30 100 100 08/22/16 08:17 87 100 08/22/16 08:05 87 100 08/22/16 08:00 57 08/22/16 08:00 97.6 57 24 135/59 87 08/22/16 08:00 100 08/22/16 07:00 87 Mechanical Ventilator 100 08/22/16 06:00 62 08/22/16 05:45 100 08/22/16 04:01 89 100 08/22/16 04:00 85 08/22/16 04:00 97.6 56 20 143/58 86 08/22/16 04:00 56 08/22/16 02:00 85 08/22/16 02:00 67 08/22/16 02:00 97.8 68 18 144/60 90 08/22/16 00:51 90 85 08/22/16 00:00 64 08/21/16 22:00 64 08/21/16 20:40 92 85 08/21/16 20:00 85 08/21/16 20:00 98.1 62 18 130/56 91 08/21/16 20:00 62 08/21/16 19:00 96 Mechanical Ventilator 60 08/21/16 16:00 98.0 70 18 144/62 93 08/21/16 16:00 60 08/21/16 16:00 70 Intake & Output 08/22/16 08/22/16 07:00 19:00 Intake Total 3450 ml 1463 ml Output Total 799 ml 404 ml Balance 2651 ml 1059 ml Intake IV Total 2469 ml 1362 ml Tube Feeding 581 ml 101 ml Other 400 ml Output Urine Total 702 ml 350 ml Tube Feeding Residual Discard 0 ml Drainage Total 97 ml 54 ml # Bowel Movements 0 # Sanitary Pads 1 Pads 1 Pads 1 Pads Physical Exam CONSTITUTIONAL/GENERAL: This is an critically ill, overweight patient, she appears older than her actual age. On [facility] vent. TUBES/LINES/DRAINS: ETT, OG, PIV right AC, Right radial A line, Lopez, SCDs. SKIN: No jaundice, rashes, or lesions. Ecchymoses on upper extremities. No wounds seen anteriorly. Skin temperature appropriate. Not diaphoretic. EYES: Pupils sluggish. CARDIOVASCULAR: Regular rate and rhythm without murmurs, gallops, or rubs. RESPIRATORY/CHEST: Symmetric, unlabored respirations. Clear to auscultation. Breath sounds equal bilaterally. No wheezes, rales, or rhonchi. GASTROINTESTINAL: Abdomen soft, protuberant. Distant bowel sounds. GENITOURINARY: Without palpable bladder distension. Lopez catheter in place. MUSCULOSKELETAL: Extremities with edema. No mottling or clubbing. NEUROLOGICAL: Off sedation, eyes open slightly, not tracking or blinking to threat, + withdraw to painful stimuli bilateral LEs. No spontaneous movement of extremities. PSYCHIATRIC: Off sedation. . Diagnostic Tests Laboratory Laboratory Tests Test 08/19/16 08/20/16 08/20/16 08/20/16 18:20 00:24 04:04 05:38 Sodium Level 156 MEQ/L 156 MEQ/L 156 MEQ/L (136-145) (136-145) (136-145) Serum Osmolality 343 MOSM/KG 347 MOSM/KG 348 MOSM/KG (275-295) (275-295) (275-295) White Blood Count 11.2 TH/MM3 (4.0-11.0) Red Blood Count 3.77 MIL/MM3 (4.00-5.30) Hemoglobin 11.4 GM/DL (11.6-15.3) Hematocrit 35.1 % (35.0-46.0) Mean Corpuscular Volume 93.1 FL (80.0-100.0) Mean Corpuscular Hemoglobin 30.3 PG (27.0-34.0) Mean Corpuscular Hemoglobin 32.6 % Concent (32.0-36.0) Red Cell Distribution Width 17.0 % (11.6-17.2) Platelet Count 108 TH/MM3 (150-450) Mean Platelet Volume 12.6 FL (7.0-11.0) Potassium Level 4.5 MEQ/L (3.5-5.1) Chloride Level 128 MEQ/L (98-107) Carbon Dioxide Level 17.0 MEQ/L (21.0-32.0) Anion Gap 11 MEQ/L (5-15) Blood Urea Nitrogen 55 MG/DL (7-18) Creatinine 4.60 MG/DL (0.50-1.00) Estimat Glomerular Filtration 10 ML/MIN (>89) Rate Random Glucose 140 MG/DL (74-106) Calcium Level 9.6 MG/DL (8.5-10.1) Phosphorus Level 5.7 MG/DL (2.5-4.9) Magnesium Level 2.6 MG/DL (1.5-2.5) Blood Gas Puncture Site DEVON Blood Gas Patient Temperature 98.6 Blood Gas HCO3 14 mmol/L (22-26) Blood Gas Base Excess -13.2 mmol/L (-2-2) Blood Gas Oxygen Saturation 95 % (90-100) Arterial Blood pH 7.18 (7.380-7.420) Arterial Blood Partial 37 mmHg (38-42) Pressure CO2 Arterial Blood Partial 97 mmHg Pressure O2 (61-120) Arterial Blood Oxygen Content 19.0 Vol % (12.0-20.0) Arterial Blood 0.9 % (0-4) Carboxyhemoglobin Arterial Blood Methemoglobin 1.0 % (0-2) Blood Gas Hemoglobin 14.2 G/DL (12.0-16.0) Oxygen Delivery Device VENT Blood Gas Ventilator Setting SEE COMMENTS Blood Gas Inspired Oxygen 60 % Test 08/20/16 08/21/16 08/21/16 08/21/16 14:30 05:24 05:25 14:25 Sodium Level 157 MEQ/L 156 MEQ/L (136-145) (136-145) Serum Osmolality 353 MOSM/KG 356 MOSM/KG (275-295) (275-295) White Blood Count 11.4 TH/MM3 (4.0-11.0) Red Blood Count 3.85 MIL/MM3 (4.00-5.30) Hemoglobin 11.2 GM/DL (11.6-15.3) Hematocrit 36.3 % (35.0-46.0) Mean Corpuscular Volume 94.2 FL (80.0-100.0) Mean Corpuscular Hemoglobin 29.1 PG (27.0-34.0) Mean Corpuscular Hemoglobin 30.9 % Concent (32.0-36.0) Red Cell Distribution Width 17.1 % (11.6-17.2) Platelet Count 105 TH/MM3 (150-450) Mean Platelet Volume 12.5 FL (7.0-11.0) Potassium Level 4.7 MEQ/L (3.5-5.1) Chloride Level 126 MEQ/L (98-107) Carbon Dioxide Level 17.4 MEQ/L (21.0-32.0) Anion Gap 13 MEQ/L (5-15) Blood Urea Nitrogen 70 MG/DL (7-18) Creatinine 4.87 MG/DL (0.50-1.00) Estimat Glomerular Filtration 10 ML/MIN (>89) Rate Random Glucose 166 MG/DL (74-106) Calcium Level 9.4 MG/DL (8.5-10.1) Phosphorus Level 7.2 MG/DL (2.5-4.9) Magnesium Level 3.0 MG/DL (1.5-2.5) Blood Gas Puncture Site ART LINE ART LINE Blood Gas Patient Temperature 98.6 98.6 Blood Gas HCO3 16 mmol/L 19 mmol/L (22-26) (22-26) Blood Gas Base Excess -10.1 mmol/L -9.1 mmol/L (-2-2) (-2-2) Blood Gas Oxygen Saturation 92 % (90-100) 92 % (90-100) Arterial Blood pH 7.26 7.13 (7.380-7.420) (7.380-7.420) Arterial Blood Partial 36 mmHg (38-42) 59 mmHg (38-42) Pressure CO2 Arterial Blood Partial 74 mmHg 84 mmHg Pressure O2 (61-120) (61-120) Arterial Blood Oxygen Content 15.2 Vol % 14.7 Vol % (12.0-20.0) (12.0-20.0) Arterial Blood 1.1 % (0-4) 0.8 % (0-4) Carboxyhemoglobin Arterial Blood Methemoglobin 1.0 % (0-2) 0.9 % (0-2) Blood Gas Hemoglobin 11.8 G/DL 11.3 G/DL (12.0-16.0) (12.0-16.0) Oxygen Delivery Device VENTILATOR VENTILATOR Blood Gas Ventilator Setting AC/16/500/PEEP10 PRVC16 600 PEEEP10 I Blood Gas Inspired Oxygen 60 % 85 % Test 08/22/16 08/22/16 08/22/16 08/22/16 03:38 05:00 06:29 15:28 White Blood Count 8.6 TH/MM3 (4.0-11.0) Red Blood Count 3.86 MIL/MM3 (4.00-5.30) Hemoglobin 11.4 GM/DL (11.6-15.3) Hematocrit 36.6 % (35.0-46.0) Mean Corpuscular Volume 94.9 FL (80.0-100.0) Mean Corpuscular Hemoglobin 29.6 PG (27.0-34.0) Mean Corpuscular Hemoglobin 31.2 % Concent (32.0-36.0) Red Cell Distribution Width 17.2 % (11.6-17.2) Platelet Count 97 TH/MM3 (150-450) Mean Platelet Volume 11.9 FL (7.0-11.0) Sodium Level 155 MEQ/L (136-145) Potassium Level 5.3 MEQ/L (3.5-5.1) Chloride Level 122 MEQ/L (98-107) Carbon Dioxide Level 23.4 MEQ/L (21.0-32.0) Anion Gap 10 MEQ/L (5-15) Blood Urea Nitrogen 85 MG/DL (7-18) Creatinine 4.94 MG/DL (0.50-1.00) Estimat Glomerular Filtration 9 ML/MIN (>89) Rate Random Glucose 156 MG/DL (74-106) Calcium Level 9.9 MG/DL (8.5-10.1) Phosphorus Level 8.7 MG/DL (2.5-4.9) Magnesium Level 3.2 MG/DL (1.5-2.5) Blood Gas Puncture Site [facility] ART LINE Blood Gas Patient Temperature 98.6 98.6 98.6 Blood Gas HCO3 20 mmol/L 19 mmol/L 20 mmol/L (22-26) (22-26) (22-26) Blood Gas Base Excess -7.3 mmol/L -7.3 mmol/L -5.6 mmol/L (-2-2) (-2-2) (-2-2) Blood Gas Oxygen Saturation 87 % (90-100) 88 % (90-100) 87 % (90-100) Arterial Blood pH 7.19 7.22 7.29 (7.380-7.420) (7.380-7.420) (7.380-7.420) Arterial Blood Partial 53 mmHg (38-42) 49 mmHg (38-42) 43 mmHg (38-42) Pressure CO2 Arterial Blood Partial 61 mmHg 62 mmHg 61 mmHg Pressure O2 (61-120) (61-120) (61-120) Arterial Blood Oxygen Content 14.3 Vol % 15.9 Vol % 13.9 Vol % (12.0-20.0) (12.0-20.0) (12.0-20.0) Arterial Blood 1.2 % (0-4) 1.2 % (0-4) 1.2 % (0-4) Carboxyhemoglobin Arterial Blood Methemoglobin 0.9 % (0-2) 0.9 % (0-2) 0.8 % (0-2) Blood Gas Hemoglobin 11.7 G/DL 12.8 G/DL 11.3 G/DL (12.0-16.0) (12.0-16.0) (12.0-16.0) Oxygen Delivery Device VENT VENT VENTILATOR Blood Gas Ventilator Setting SEE COMMENTS SEE COMMENTS PC/AC Blood Gas Inspired Oxygen 100 % 100 % 100 % Result Diagram: 08/22/16 0338 08/22/16 0338 Imaging Last Impressions Head CT 08/22/16 0400 Signed Impressions: Service Date/Time: August 08:37 - CONCLUSION: 1. New left parietal lobe infarct. 2. No change in areas of intracranial hemorrhage. 3. Decrease in size of the ventricles diffusely. Ivan Wilkinson MD Chest X-Ray 08/22/16 0000 Signed Impressions: Service Date/Time: August 00:49 - CONCLUSION: No significant change Tyshawn Benjamin MD Renal Ultrasound 08/19/16 0000 Signed Impressions: Service Date/Time: Friday, August 19, 2016 10:55 - CONCLUSION: Atrophic right kidney with severe abnormal increased echotexture of the renal parenchyma bilaterally indicating medical renal disease. There is no hydronephrosis. Tyshawn Witt MD Neck CTA 08/17/16 0000 Signed Impressions: Service Date/Time: Wednesday, August 17, 2016 10:50 - CONCLUSION: 1. No significant abnormality is identified in the neck arterial vasculature. 2. Right pleural effusion with adjacent compressive atelectasis and/or consolidation. Tyshawn Witt MD Head CTA 08/17/16 0000 Signed Impressions: Service Date/Time: Wednesday, August 17, 2016 10:50 - CONCLUSION: No aneurysm or acute intracranial vascular abnormality is identified. Please refer to noncontrast head CT for description of the posterior fossa and ventricular blood products. Tyshawn Witt MD . Procedures * 08/17/16 - bilateral suboccipital craniectomy, evacuation of intracranial hemorrhage right occipital bur hole for ventriculostomy placement. * 08/17/16 - intubated. . Assessment and Plan Disease Oriented Problem List: (1) Intracranial hemorrhage (2) Hypertensive crisis (3) Anwcy-vh-tgqwqns kidney injury (4) Hyperglycemia Symptom Scale: (1) Pain 0-10 Scale: Unable to quantify (2) Dyspnea 0-10 Scale: Unable to quantify Pertinent Non-Medical Issues Psychosocial: . No children. Spiritual: Judaism loyda. Legal: Patient is currently incapacitated, will likely not regain capacity. According to [place] statutes, health care proxy decision-making falls to the patient's spouse. Ethical issues impacting care: no known concerns at this time. . Important Contacts * Roland Davis, spouse/ HCP: [phone] * Savannah, mother * Tyshawn brother: [phone] . Prognosis Overall prognosis appears poor for meaningful recovery. Code Status: Full Code Plan * Decision Maker: Patient is currently incapacitated, will likely not regain capacity. According to [place] statutes, health care proxy decision-making falls to the patient's spouse, Roland Davis. * FULL CODE * Spouse is from [place], I offered translation service he declines stating, he understands [place] (and our conversation) as he has been in [place] for more than 20 years. I am able to understand his wishes and he confirms my understanding of his wishes. * Discussed with nursing staff. * 08/22/16: Met with spouse to provide update regarding new parietal infarct, worsening renal and respiratory status. He desires FULL CODE and continued aggressive care. I do not foresee goals changing given the simple understanding in this family, brother previously asked if he can donate his kidney or part of his brain during prior conversations. The family continues to state they do not know how they will live without her. . * SYMPTOMS: Pain: due to recent hemorrhage, surgery, hypertension. Currently on Diprivan. Dyspnea: Has underlying COPD, emphysema and asthma, on mech vent. No new medication recommendations at this time. * Palliative care will continue to follow throughout hospital course to assist with symptom management and clarification of goals as needed. . Attestation To help prompt me to consider important information that might be impacting today's encounter and assessment, information from prior notes written by myself or my colleagues may have been "brought forward" into today's note. My signature on this note, however, is an attestation that I personally performed the exam, history, and/or decision-making noted today, and, unless otherwise indicated, the interactions with patient, family, and staff as well as the review of records all occurred today. I also attest that the listed assessment and stated plan reflect my best clinical judgment today based on the combination of historical information, prior notes, and today's exam/ interactions. When time spent is documented, it refers only to time spent today by the signer, or if indicated, combined time spent today by collaborating physician/nurse practitioner. LEONCIO BLACKMAN Aug 22, 2016 16:10
[2016-08-22] MEDS: SODIUM BICARBONATE 8.4% INJ 150 MEQ in WATER STERILE FOR INJ 850 ML IV SCH ×3 (16:40)
[2016-08-22] MEDS: niCARdipine INJ 50 MG in SODIUM CHLOR 0.9% 250 ML INJ 230 ML IV SCH ×2 (16:41→21:06)
[2016-08-22] MEDS: hydrALAZINE HCL 100 MG TAB PO SCH (21:05)
[2016-08-22] MEDS: hydrALAZINE HCL 20 MG/ML VIAL IV PUSH PRN (22:53)
[2016-08-23] VITALS (18 sets, daily range): BP systolic 130–168; BP diastolic 54–66; PULSE 56–66; RESP 24–27; TEMP 97.6–97.8; O2SAT 84–89
[2016-08-23] MEDS: niCARdipine INJ 50 MG in SODIUM CHLOR 0.9% 250 ML INJ 230 ML IV SCH ×6 (01:08→18:32)
[2016-08-23] MEDS: hydrALAZINE HCL 20 MG/ML VIAL IV PUSH PRN ×2 (02:22→06:18)
[2016-08-23] MEDS: CHLORHEXIDINE GLUCONATE 2 % 1 PACK (2 CLOTHS) TOP SCH (04:00)
[2016-08-23 05:14] LABS: HEMATOCRIT 34.1 % (35.0-46.0); MEAN CELL VOLUME 92.4 FL (80.0-100.0); MEAN CORPUSCULAR HEMOGLOBIN 30.5 PG (27.0-34.0); PLATELET COUNT 97 TH/MM3 (150-450); RED CELL DISTRIBUTION WIDTH 15.9 % (11.6-17.2); WHITE BLOOD COUNT 9.2 TH/MM3 (4.0-11.0)
[2016-08-23 05:15] LABS: REVIEW FLAG FINAL
[2016-08-23] MEDS: hydrALAZINE HCL 100 MG TAB PO SCH ×3 (05:16→22:00)
[2016-08-23] MEDS: cloNIDine HCL 0.1 MG TAB PO SCH ×3 (05:16→22:00)
[2016-08-23 05:26] LABS: BLOOD GAS BASE EXCESS -4.9 mmol/L (-2-2); BLOOD GAS CARBOXYHEMOGLOBIN 1.1 % (0-4); BLOOD GAS HCO3 21 mmol/L (22-26); BLOOD GAS METHEMOGLOBIN 0.9 % (0-2); BLOOD GAS O2 HGB SATURATION 89 % (90-100); BLOOD GAS OXYGEN CONTENT 14.6 Vol % (12.0-20.0); BLOOD GAS PCO2 48 mmHg (38-42); BLOOD GAS PO2 66 mmHg (61-120); BLOOD GAS TOTAL HGB 11.7 G/DL (12.0-16.0); TEMP CORR TO 98.6
[2016-08-23 05:27] LABS: CRITICAL VALUE YES; OXYGEN DEVICE VENTILATOR
[2016-08-23 05:28] LABS: BICARBONATE 22.5 MEQ/L (21.0-32.0); MAGNESIUM 3.1 MG/DL (1.5-2.5); POTASSIUM 4.8 MEQ/L (3.5-5.1)
[2016-08-23 05:29] LABS: DRAW SITE ART LINE; FIO2 100 %; STAT NO
[2016-08-23] MEDS: INSULIN NovoLIN REGULAR SUPPLEMENTAL SCALE SQ SCH ×3 (06:00→17:52)
[2016-08-23] MEDS: LABETALOL HCL 100 MG/20 ML VIAL IV PUSH PRN (06:34)
[2016-08-23] MEDS: RESP: ALBUTEROL 2.5 MG/IPRATROPIUM 0.5 MG NEB (PRN) INH (06:53)
--- NOTE | 2016-08-23 07:56 | HHI.CCPN ---
Subjective Remarks/Hospital Course Hospital Course: This is a 46yF with history of "thyroid problems" and hypertension per her prior records from 2013. She presents after her family called 911 when they found her unresponsive this morning. Per EMS, her GCS was 3. She was intubated on scene. She arrives to the emergency department with a blood pressure of 330s/ 220s. Head CT demonstrates large right cerebellar intraparenchymal hemorrhage with extension into the ventricular system and early posterior fossa herniation. The patient is unresponsive and additional history is unobtainable. Subjective: 08/18: s/p decompressive posterior fossa craniectomy yesterday. overnight severely hypertensive, requiring cardene, labetalol, hydralazine, and low dose propofol. best neuro exam for RN: weakly w/d lower extremities, pupils reactive , +cough. this morning, Cr significantly elevated, likely secondary to acute illness and contrast load. net +3L/24h. 08/19: persistently encephalopathic. also very hypertensive, requiring cardene at 15 mg/hr as well as prn hydralazine/labetalol to keep sbp < 140. still with + cough, but minimal neuro exam. net +6.8L/24h, but KENYON continues to worsen. may have some underlying chronic renal insufficiency, with +proteinuria on admission , but unknown. Also has gram negative stanley UTI on admission. 08/20: Persistent metabolic acidosis from renal failure, etc. No neurological improvement. Ceftriaxone for UTI. 08/21: We have concentrated her serum more than adequately and at this point it is probably impairing renal function. Though reluctantly, I will start some free water iv and follow her sodium very closely, assuring the decrease is slow and limited to around the 144 - 148 range. 08/22: Renal function unchanged, no improvement. Patient is minimally responsive. New left parietal lobe infarction today on head CT. 08/23: No neurological improvement. Devastating bleed. Gas exchange very poor and deteriorating. Objective Vital Signs Date Time Temp Pulse Resp B/P Pulse Ox O2 Delivery O2 Flow Rate FiO2 08/23/16 06:00 66 08/23/16 04:04 87 100 08/23/16 04:00 97.8 26 168/66 08/22/16 19:00 Mechanical Ventilator Intake and Output 08/22/16 08/22/16 08/23/16 08:00 16:00 00:00 Intake Total 1571 ml 1463 ml 1773 ml Output Total 347 ml 404 ml 396 ml Balance 1224 ml 1059 ml 1377 ml Result Diagram: 08/23/16 0500 08/23/16 0500 Other Results Laboratory Tests Test 08/22/16 08/23/16 15:28 05:10 Blood Gas Puncture Site ART LINE ART LINE Blood Gas Patient Temperature 98.6 98.6 Blood Gas HCO3 20 mmol/L 21 mmol/L (22-26) (22-26) Blood Gas Base Excess -5.6 mmol/L -4.9 mmol/L (-2-2) (-2-2) Blood Gas Oxygen Saturation 87 % (90-100) 89 % (90-100) Arterial Blood pH 7.29 7.26 (7.380-7.420) (7.380-7.420) Arterial Blood Partial 43 mmHg (38-42) 48 mmHg (38-42) Pressure CO2 Arterial Blood Partial 61 mmHg 66 mmHg Pressure O2 (61-120) (61-120) Arterial Blood Oxygen Content 13.9 Vol % 14.6 Vol % (12.0-20.0) (12.0-20.0) Arterial Blood 1.2 % (0-4) 1.1 % (0-4) Carboxyhemoglobin Arterial Blood Methemoglobin 0.8 % (0-2) 0.9 % (0-2) Blood Gas Hemoglobin 11.3 G/DL 11.7 G/DL (12.0-16.0) (12.0-16.0) Oxygen Delivery Device VENTILATOR VENTILATOR Blood Gas Ventilator Setting PC/AC COMMENT Blood Gas Inspired Oxygen 100 % 100 % Imaging Last Impressions Head CT 08/17/16753 Signed Impressions: Service Date/Time: Wednesday, August 17, 2016 09:45 - CONCLUSION: 1. There is acute intraparenchymal hemorrhage in the right cerebellum measuring approximately 5.4 x 4 centimeters. The blood products extend into the ventricular system causing mild dilatation of the ventricles. 2. Mass effect from the posterior fossa hemorrhage results in local mass effect and likely upward transtentorial herniation and some degree of tonsillar herniation. These findings were relayed to Dr. Paredes via telephone at 9: 58 AM. Tyshawn Witt MD Chest X-Ray 08/17/16 4187 Signed Impressions: Service Date/Time: Wednesday, August 17, 2016 08:19 - CONCLUSION: Severe air space consolidation in the right lower lung zone with possible mild airspace opacity in the upper lung zones bilaterally. This could represent an infectious process in the appropriate clinical setting. Alternately, aspiration could have this appearance. Endotracheal tube is in appropriate position. Tyshawn Witt MD Neck CTA 08/17/16 0000 Signed Impressions: Service Date/Time: Wednesday, August 17, 2016 10:50 - CONCLUSION: 1. No significant abnormality is identified in the neck arterial vasculature. 2. Right pleural effusion with adjacent compressive atelectasis and/or consolidation. Tyshawn Witt MD Head CTA 08/17/16 0000 Signed Impressions: Service Date/Time: Wednesday, August 17, 2016 10:50 - CONCLUSION: No aneurysm or acute intracranial vascular abnormality is identified. Please refer to noncontrast head CT for description of the posterior fossa and ventricular blood products. Tyshawn Witt MD Objective Remarks GENERAL: Middle-aged female, lying in bed, intubated, unresponsive, critically ill HEENT: Pupils 2 mm, sluggishly reactive, conjugate. Normocephalic. dressing to occiput. EVD in place, sanguinous output. Mucous membranes are moist NECK: Trachea is midline. No JVD. CHEST: Endotracheal tube in place. Equal chest rise. Clear to auscultation. PCV/550/18/8/40% left SC TLC clean and dry, dressing intact. CARDIOVASCULAR: Normal rate, regular rhythm. Sinus by telemetry. ABDOMEN: Obese, soft, nontender, nondistended. No guarding. BS active. MUSCULOSKELETAL: Distal pulses 2+. No peripheral edema. right radial arterial line in place, dressing intact. NEUROLOGICAL: RASS -5. GCS 4T. - gag. + cough. withdraws lower extremities to painful stimuli. A/P Assessment and Plan Assessment: 46yF with large posterior fossa intra-parenchymal hemorrhage with extension into the ventricles and initial evidence of upwards tentorial herniation. She also has associated organ dysfunction including hypertensive emergency, acute kidney injury. Her ICH score is 5, predicting essentially 100 % mortality rate. She is now s/p decompressive posterior fossa craniectomy . will continue to be aggressive for now. I have spoken with her and updated him that her prognosis is poor, and she may never wake up again. We will consult palliative care. Her KENYON continues to worsen, will send urine studies, renal ultrasound. get pulse contour analysis to ensure adequate cardiac output and oxygen delivery to the kidneys. Her acidosis is primarily non-gapped likely secondary to renal tubular acidosis and hyperchloremic acidosis. Plan by systems: Neurologic: Large right cerebellar intraparenchymal hemorrhage Status post posterior fossa decompressive craniectomy 08/17 Frequent neuro checks Hyperosmolar therapy Elevated Head of bed Avoidance of hypercarbia and hypoxia d/c 3% at 30 mL/hr Serial sodiums Neurosurgery: Dr. Garza --Continue free water slowly Respiratory: Acute hypoxic and hypercarbic respiratory failure Does not meet SBT criteria given intracranial hemorrhage and cerebral edema Wean FiO2 for goal SPO2 greater than 92% Avoid hypercarbia, hypoxia --daily abg's, goal paco2 30-40. End-tidal CO2 monitoring Vent bundle Nebs Cardiovascular: Hypertensive emergency Nicardipine, labetalol, hydralazine as needed for goal SBP less than 150 Renal: Acute kidney injury- worsening. Possible Chronic Renal Insufficiency Proteinuria -- Strict I/Os d/c NS @ 120cc/hr --pulse contour analysis to ensure adequate oxygen delivery -- urine Na, Cr, eos, u/a with microscopy, renal ultrasound FEN/GI: Intravascular volume depletion- resolved. TF, Jevity 1.5, nutrition consult for goals. Normal saline at 120 cc/hr Hold on ICU electrolyte protocol given renal function. --daily BMP, phos Heme/ID: Urinary Tract Infection- uncomplicated, presented on admission, not catheter associated. -- u/a positive on admission -- start Rocephin 1gm iv q24h and await speciation. 3 days total duration should be adequate for uncomplicated UTI (anticipated stop date 08/22) Endocrine: Hyperglycemia of critical illness -- SSI, medium scale, every 6 Prophylaxis: GI Prophylaxis Protonix IV every 24 hours DVT Prophylaxis -- SCDs Holding pharmacologic DVT prophylaxis in the setting of acute head bleed Lines: Radial arterial line placed emergency department 08/17 left SC tlc 08/17 Lopez Dispo: Remain in the ICU. She remains critically ill. No improvement. Overall impression: Minimal response after posterior fossa bleed requiring decompression. Remains critically ill and neurologically unstable. Oxygenation deteriorating. Clinically worse. Hypovascularity left lung may represent PE but she is not a candidate for treatment. Harely Casey MD Aug 23, 2016 07:56
--- NOTE | 2016-08-23 08:57 | HHI.NSPN ---
(Clovis Tejeda) History Chief Complaint: Unable to obtain ROS due to patient's mental status and being intubated. (Clovis Tejeda) Interval History 46-year-old female presented to the emergency room 08/17/16, hypertensive crisis with blood pressure in the 330/[address] scan with large primarily right cerebellar intracranial hemorrhage 08/17/2016: Suboccipital craniectomy, evacuation cerebellar intracranial hemorrhage. Placement of external ventricular drain 08/18/16: Remains intubated. Pupils 3 mm minimally reactive. No response to deep pain all extremities. CT scan head with mild to moderate residual/ recurrent cerebellar hemorrhage, improved compared to preoperative. 08/19/16: Pt sedated with Diprivan drip. Not opening eyes. Pupils 3mm reactive bilaterally. Ventriculostomy in place at 5 cm with bloody CSF. ICP 4- 5 range. 08/20/16: Patient off sedation since last night. No eye opening. Pupils 3 mm minimally reactive. Withdraws to painful stimuli for Nursing. Ventriculostomy in place with bloody CSF. ICP 2 when seen. 08/21/16: The patient remains of sedation. Nursing reports that the patient is localising with the LUE. Ventriculostomy still with bloody CSF. ICP is 4. 08/22/16: The patient is off sedation. She did withdraw on the left. The ventriculostomy is still with bloody CSF. Her ICP when seen was 5. She went for a repeat CT brain this morning. Yesterday afternoon the patient's neurological condition deteriorated and she was not withdrawing. A stat CT brain was ordered. An ABG was also obtained which demonstrated hypercapnia and she was placed back on a rate on the ventilatory. Her neurological status improved to what it was and the CT was cancelled by the Perfumer. 08/23/16: The patient was nonresponsive this morning. She is still off any sedation. She had a repeat CT yesterday which demonstrated a left parietal lobe infarct. (Clovis Tejeda) System Review Comments Unable to obtain ROS due to patient's mental status and being intubated. ( Clovis Tejeda) Exam Results Vital Signs Date Time Temp Pulse Resp B/P Pulse Ox O2 Delivery O2 Flow Rate FiO2 08/23/16 07:58 86 100 08/23/16 06:00 66 08/23/16 04:00 97.8 26 168/66 08/22/16 19:00 Mechanical Ventilator Intake and Output 08/22/16 08/22/16 08/23/16 08:00 16:00 00:00 Intake Total 1571 ml 1463 ml 1773 ml Output Total 347 ml 404 ml 396 ml Balance 1224 ml 1059 ml 1377 ml (Clovis Tejeda) Physical Examination HEENT: Craniotomy incision well-approximated w/isaac, no evident drainage, erythema or streaking noted. Ventriculostomy insertion site w/o evident drainage , erythema or streaking. Respiratory: CTAB w/o W/R/R, equal excursion, non-laboured, intubated, on pressure support AC. Cardiovascular: S1S2 w/RRR w/o M/G/R, radial & pedal pulses 2+ bilaterally, cap refill < 2 sec, pedal edema 3+ bilaterally. Monitor is sinus rhythm w/o any ectopy noted. Her SBP is noted to be in the 170s & 180s, Nursing had just hung a new Cardene bag. Gastrointestinal: Obese, soft, nontender, bowel sounds not appreciated, OGT clapped. Genitourinary: Lopez catheter to BSD w/clear yellow urine. Integumentary: No cyanosis or erythema. Musculoskeletal: Extremities normal. No evident response to noxious stimuli. No evident discolouration, deformity or clubbing. Neurological: Off sedation. Not opening eyes to noxious stimuli. PERRL 4 mm bilaterally reactive. Not following commands, no evident response to noxious stimuli . Upward Babinski response. Ventriculostomy drain in place at 5cm with blood tinged CSF. ICP 5. (Clovis Tejeda) Lab, Micro, Other Results Allergies Coded Allergies Type Severity Reaction Last Updated Verified UNOBTAINABLE 08/17/16 No Recent Impressions Head CT 08/22/16 0400 Signed Impressions: Service Date/Time: August 08:37 - CONCLUSION: 1. New left parietal lobe infarct. 2. No change in areas of intracranial hemorrhage. 3. Decrease in size of the ventricles diffusely. Ivan Wilkinson MD Chest X-Ray 08/22/16 0000 Signed Impressions: Service Date/Time: August 00:49 - CONCLUSION: No significant change Tyshawn Benjamin MD Chest X-Ray 08/21/16 0000 Signed Impressions: Service Date/Time: Sunday, August 21, 2016 07:18 - CONCLUSION: 1. Interval increase in effusion on the right. Effusion is still small. 2. Support apparatus remains in good position. Jose Thompson MD FACR /////// 06:00 18:00 06:00 18:00 06:00 18:00 Intake Total 3286 ml 2374 ml 3450 ml 1463 ml 3916 ml Output Total 1004 ml 930 ml 799 ml 404 ml 978 ml Balance 2282 ml 1444 ml 2651 ml 1059 ml 2938 ml Intake IV Total 2410 ml 1754 ml 2469 ml 1362 ml 2979 ml Tube Feeding 756 ml 500 ml 581 ml 101 ml 817 ml Other 120 ml 120 ml 400 ml 120 ml Output Urine Total 850 ml 850 ml 702 ml 350 ml 875 ml Tube Feeding Residual Discard 0 ml Drainage Total 154 ml 80 ml 97 ml 54 ml 103 ml # Bowel Movements 0 0 0 # Sanitary Pads 1 Pads 1 Pads 1 Pads 1 Pads 1 Pads 1 Pads Laboratory Tests Test 08/20/16 08/21/16 08/21/16 08/21/16 14:30 05:24 05:25 14:25 Sodium Level 157 MEQ/L 156 MEQ/L Serum Osmolality 353 MOSM/KG 356 MOSM/KG White Blood Count 11.4 TH/MM3 Red Blood Count 3.85 MIL/MM3 Hemoglobin 11.2 GM/DL Hematocrit 36.3 % Mean Corpuscular Volume 94.2 FL Mean Corpuscular Hemoglobin 29.1 PG Mean Corpuscular Hemoglobin 30.9 % Concent Red Cell Distribution Width 17.1 % Platelet Count 105 TH/MM3 Mean Platelet Volume 12.5 FL Potassium Level 4.7 MEQ/L Chloride Level 126 MEQ/L Carbon Dioxide Level 17.4 MEQ/L Anion Gap 13 MEQ/L Blood Urea Nitrogen 70 MG/DL Creatinine 4.87 MG/DL Estimat Glomerular Filtration 10 ML/MIN Rate Random Glucose 166 MG/DL Calcium Level 9.4 MG/DL Phosphorus Level 7.2 MG/DL Magnesium Level 3.0 MG/DL Blood Gas Puncture Site ART LINE ART LINE Blood Gas Patient Temperature 98.6 98.6 Blood Gas HCO3 16 mmol/L 19 mmol/L Blood Gas Base Excess -10.1 mmol/L -9.1 mmol/L Blood Gas Oxygen Saturation 92 % 92 % Arterial Blood pH 7.26 7.13 Arterial Blood Partial 36 mmHg 59 mmHg Pressure CO2 Arterial Blood Partial 74 mmHg 84 mmHg Pressure O2 Arterial Blood Oxygen Content 15.2 Vol % 14.7 Vol % Arterial Blood 1.1 % 0.8 % Carboxyhemoglobin Arterial Blood Methemoglobin 1.0 % 0.9 % Blood Gas Hemoglobin 11.8 G/DL 11.3 G/DL Oxygen Delivery Device VENTILATOR VENTILATOR Blood Gas Ventilator Setting AC/16/500/PEEP10 PRVC16 600 PEEEP10 I Blood Gas Inspired Oxygen 60 % 85 % Test 08/22/16 08/22/16 08/22/16 08/22/16 03:38 05:00 06:29 15:28 White Blood Count 8.6 TH/MM3 Red Blood Count 3.86 MIL/MM3 Hemoglobin 11.4 GM/DL Hematocrit 36.6 % Mean Corpuscular Volume 94.9 FL Mean Corpuscular Hemoglobin 29.6 PG Mean Corpuscular Hemoglobin 31.2 % Concent Red Cell Distribution Width 17.2 % Platelet Count 97 TH/MM3 Mean Platelet Volume 11.9 FL Sodium Level 155 MEQ/L Potassium Level 5.3 MEQ/L Chloride Level 122 MEQ/L Carbon Dioxide Level 23.4 MEQ/L Anion Gap 10 MEQ/L Blood Urea Nitrogen 85 MG/DL Creatinine 4.94 MG/DL Estimat Glomerular Filtration 9 ML/MIN Rate Random Glucose 156 MG/DL Calcium Level 9.9 MG/DL Phosphorus Level 8.7 MG/DL Magnesium Level 3.2 MG/DL Blood Gas Puncture Site DEVON OSORIO ART LINE Blood Gas Patient Temperature 98.6 98.6 98.6 Blood Gas HCO3 20 mmol/L 19 mmol/L 20 mmol/L Blood Gas Base Excess -7.3 mmol/L -7.3 mmol/L -5.6 mmol/L Blood Gas Oxygen Saturation 87 % 88 % 87 % Arterial Blood pH 7.19 7.22 7.29 Arterial Blood Partial 53 mmHg 49 mmHg 43 mmHg Pressure CO2 Arterial Blood Partial 61 mmHg 62 mmHg 61 mmHg Pressure O2 Arterial Blood Oxygen Content 14.3 Vol % 15.9 Vol % 13.9 Vol % Arterial Blood 1.2 % 1.2 % 1.2 % Carboxyhemoglobin Arterial Blood Methemoglobin 0.9 % 0.9 % 0.8 % Blood Gas Hemoglobin 11.7 G/DL 12.8 G/DL 11.3 G/DL Oxygen Delivery Device VENT VENT VENTILATOR Blood Gas Ventilator Setting SEE COMMENTS SEE COMMENTS PC/AC Blood Gas Inspired Oxygen 100 % 100 % 100 % Test 08/23/16 08/23/16 05:00 05:10 White Blood Count 9.2 TH/MM3 Red Blood Count 3.70 MIL/MM3 Hemoglobin 11.3 GM/DL Hematocrit 34.1 % Mean Corpuscular Volume 92.4 FL Mean Corpuscular Hemoglobin 30.5 PG Mean Corpuscular Hemoglobin 33.0 % Concent Red Cell Distribution Width 15.9 % Platelet Count 97 TH/MM3 Mean Platelet Volume 12.5 FL Sodium Level 148 MEQ/L Potassium Level 4.8 MEQ/L Chloride Level 116 MEQ/L Carbon Dioxide Level 22.5 MEQ/L Anion Gap 10 MEQ/L Blood Urea Nitrogen 94 MG/DL Creatinine 4.90 MG/DL Estimat Glomerular Filtration 9 ML/MIN Rate Random Glucose 207 MG/DL Serum Osmolality 352 MOSM/KG Calcium Level 9.9 MG/DL Phosphorus Level 7.7 MG/DL Magnesium Level 3.1 MG/DL Blood Gas Puncture Site ART LINE Blood Gas Patient Temperature 98.6 Blood Gas HCO3 21 mmol/L Blood Gas Base Excess -4.9 mmol/L Blood Gas Oxygen Saturation 89 % Arterial Blood pH 7.26 Arterial Blood Partial 48 mmHg Pressure CO2 Arterial Blood Partial 66 mmHg Pressure O2 Arterial Blood Oxygen Content 14.6 Vol % Arterial Blood 1.1 % Carboxyhemoglobin Arterial Blood Methemoglobin 0.9 % Blood Gas Hemoglobin 11.7 G/DL Oxygen Delivery Device VENTILATOR Blood Gas Ventilator Setting COMMENT Blood Gas Inspired Oxygen 100 % Vital Signs Date Time Temp Pulse Resp B/P Pulse Ox O2 Delivery O2 Flow Rate FiO2 08/23/16 07:58 86 100 08/23/16 06:00 66 08/23/16 04:04 87 100 08/23/16 04:00 66 08/23/16 04:00 97.8 66 26 168/66 87 08/23/16 04:00 100 08/23/16 02:00 66 08/23/16 01:05 88 100 08/23/16 00:00 97.6 59 27 150/65 89 08/23/16 00:00 59 08/23/16 00:00 100 08/22/16 22:00 58 08/22/16 20:00 97.6 58 27 160/66 88 08/22/16 20:00 58 08/22/16 20:00 100 08/22/16 19:55 88 100 08/22/16 19:00 88 Mechanical Ventilator 100 08/22/16 18:00 57 08/22/16 16:00 56 08/22/16 16:00 97.5 56 22 145/62 87 08/22/16 16:00 100 08/22/16 15:25 86 100 08/22/16 14:00 54 08/22/16 12:00 100 08/22/16 12:00 97.5 56 24 152/64 87 08/22/16 12:00 56 08/22/16 11:50 88 100 08/22/16 10:00 58 08/22/16 08:30 100 100 08/22/16 08:17 87 100 08/22/16 08:05 87 100 08/22/16 08:00 57 08/22/16 08:00 97.6 57 24 135/59 87 08/22/16 08:00 100 08/22/16 07:00 87 Mechanical Ventilator 100 08/22/16 06:00 62 08/22/16 05:45 100 08/22/16 04:01 89 100 08/22/16 04:00 85 08/22/16 04:00 97.6 56 20 143/58 86 08/22/16 04:00 56 08/22/16 02:00 85 08/22/16 02:00 67 08/22/16 02:00 97.8 68 18 144/60 90 08/22/16 00:51 90 85 08/22/16 00:00 64 08/21/16 22:00 64 08/21/16 20:40 92 85 08/21/16 20:00 85 08/21/16 20:00 98.1 62 18 130/56 91 08/21/16 20:00 62 08/21/16 19:00 96 Mechanical Ventilator 60 08/21/16 16:00 98.0 70 18 144/62 93 08/21/16 16:00 60 08/21/16 16:00 70 08/21/16 15:52 92 85 08/21/16 14:00 70 08/21/16 12:56 92 85 08/21/16 12:00 60 08/21/16 12:00 98.1 67 18 144/64 92 08/21/16 12:00 68 08/21/16 10:00 64 08/21/16 08:37 93 80 08/21/16 08:37 80 08/21/16 08:00 60 08/21/16 08:00 98.0 65 17 143/65 96 08/21/16 08:00 65 08/21/16 07:00 96 Mechanical Ventilator 100 08/21/16 06:00 65 08/21/16 04:00 69 08/21/16 04:00 98.2 68 22 133/52 93 08/21/16 04:00 60 08/21/16 02:00 66 08/21/16 01:22 92 60 08/21/16 00:00 60 08/21/16 00:00 70 08/21/16 00:00 98.2 68 16 134/58 92 08/20/16 22:00 71 08/20/16 22:00 60 08/20/16 21:52 93 60 08/20/16 21:52 95 60 08/20/16 20:00 60 08/20/16 20:00 69 08/20/16 20:00 98.2 77 18 152/62 95 08/20/16 19:00 92 Mechanical Ventilator 60 08/20/16 18:00 70 08/20/16 17:21 93 60 08/20/16 16:00 74 08/20/16 16:00 98.4 74 17 136/58 93 08/20/16 16:00 60 08/20/16 14:00 69 08/20/16 12:03 93 60 08/20/16 12:00 60 08/20/16 12:00 97.8 68 16 139/62 93 08/20/16 12:00 64 08/20/16 10:00 68 08/20/16 09:06 94 60 08/20/16 09:06 99 60 (Clovis Tejeda) Medical Decision Making Impression and Plan Impression: 1. Persistent severe neurologic deficit following suboccipital craniectomy and evacuation of cerebellar hematoma. 2. Hypertension Severe neurological deficit, remains critical CT brain with new left parietal lobe infarct, stable ICH & decrease in ventricle size Sodium 148 this AM Hyperkalemia, resolved POD # 6 () s/p: 1. Bilateral suboccipital craniectomy, evacuation of intracranial hemorrhage 2. Right occipital bur hole for ventriculostomy placement Plan: Continue ventriculostomy. Monitor ICPs Continue ventilatory support Maintain sodium between 145 and 155 Non-chemical DVT prophylaxis Ulcer prophylaxis Continuing hypertensive medications. Nicardipine as needed. Critical care management per Perfumer (Clovis Tejeda) Attending Statement I have personally seen and examined the patient on the date of this note. Pertinent documentation and study results have been reviewed by the undersigned. I have personally developed the treatment plan and performed medical decision making. Agree with findings, exam, and treatment plan as noted above. No significant change in neurologic exam compared to preoperative. Prognosis for meaningful recovery remains extremely poor. Palliative care notes reviewed (Bruce Garza MD) Clovis Tejeda Aug 23, 2016 08:57 Bruce Garza MD Sep 02, 2016 18:41
[2016-08-23] MEDS: CHLORHEXIDINE 0.12% (ORAL KIT) 15 ML CUP MT SCH ×2 (09:11→20:02)
[2016-08-23] MEDS: amLODIPine BESYLATE 5 MG TAB PO SCH (09:12)
[2016-08-23] MEDS: PANTOPRAZOLE SODIUM 40 MG VIAL IV SCH (09:12)
[2016-08-23] MEDS: DOCUSATE SODIUM 50 MG/SENNA 8.6 MG TAB PO SCH ×2 (09:12→21:48)
[2016-08-23] MEDS: LABETALOL HCL 200 MG TAB PO SCH ×3 (09:13→23:35)
[2016-08-23] MEDS: SODIUM BICARBONATE 8.4% INJ 150 MEQ in WATER STERILE FOR INJ 850 ML IV SCH (09:13)
--- NOTE | 2016-08-23 10:59 | HHI.HCPN ---
Reason for visit a. To assist with evaluation and management of symptoms including: dyspnea, pain. b. To assist medical decision maker(s) with: better understanding of current medical conditions; weighing benefits/burdens of medical treatment options; making medical treatment decisions. . Subjective/Interval History Patient seen and examined in ICU. Discussed with nursing staff. Afebrile. Off sedation, unresponsive. Remains on mech vent, FiO2 100%, oxygen sats in the 80's. Heart rate 50's. BP 140-160's/ 50-60's despite Cardene drip. Creatinine 4.9, sodium 148, serum osmolality 352. No purposeful movements noted. No evidence of neurologic improvement. Worsening gas exchange and condition deteriorating. . Family/friend interactions Heidi Booker LCSW and I met with spouse, Roland at bedside. Medical update provided reviewed worsening condition and she will not likely survive this hospitalization. He tells me we should let her go when God says it is her time, that she would not want to live like this. He does not want to consider withdrawal of life support, but elects NO CODE status. . Advance Directives Living Will: Never completed Health Care Surrogate: Never completed Durable Power of Transport Aircrewman: Never completed Advance Directive Specifics Health Care Surrogate(s): Patient is currently incapacitated, will likely not regain capacity. According to [place] statutes, health care proxy decision-making falls to the patient's spouse. Significant change in goals: NO CODE. Spouse desires continued current care, does not want to consider withdrawal of life support, wants God to take her when it is her time. . Objective Vital Signs Date Time Temp Pulse Resp B/P Pulse Ox O2 Delivery O2 Flow Rate FiO2 08/23/16 07:58 86 100 08/23/16 06:00 66 08/23/16 04:04 87 100 08/23/16 04:00 66 08/23/16 04:00 97.8 66 26 168/66 87 08/23/16 04:00 100 08/23/16 02:00 66 08/23/16 01:05 88 100 08/23/16 00:00 97.6 59 27 150/65 89 08/23/16 00:00 59 08/23/16 00:00 100 08/22/16 22:00 58 08/22/16 20:00 97.6 58 27 160/66 88 08/22/16 20:00 58 08/22/16 20:00 100 08/22/16 19:55 88 100 08/22/16 19:00 88 Mechanical Ventilator 100 08/22/16 18:00 57 08/22/16 16:00 56 08/22/16 16:00 97.5 56 22 145/62 87 08/22/16 16:00 100 08/22/16 15:25 86 100 08/22/16 14:00 54 08/22/16 12:00 100 08/22/16 12:00 97.5 56 24 152/64 87 08/22/16 12:00 56 08/22/16 11:50 88 100 Intake & Output 08/23/16 08/23/16 07:00 19:00 Intake Total 3916 ml Output Total 978 ml Balance 2938 ml Intake IV Total 2979 ml Tube Feeding 817 ml Other 120 ml Output Urine Total 875 ml Drainage Total 103 ml Physical Exam CONSTITUTIONAL/GENERAL: This is an critically ill, overweight patient, she appears older than her actual age. On [facility] vent. TUBES/LINES/DRAINS: ETT, OG, PIV right AC, Right radial A line, Lopez, SCDs. SKIN: No jaundice, rashes, or lesions. Ecchymoses on upper extremities. No wounds seen anteriorly. Skin temperature appropriate. Not diaphoretic. EYES: Pupils sluggish. CARDIOVASCULAR: HR 50's RESPIRATORY/CHEST: Symmetric, labored respirations on vent, FiO2 100%, PEEP 10, oxygen sat 80s. Diminished breath sounds left > right. GASTROINTESTINAL: Abdomen soft, protuberant. Distant bowel sounds. GENITOURINARY: Without palpable bladder distension. Lopez catheter in place. MUSCULOSKELETAL: Extremities with edema. No mottling or clubbing. NEUROLOGICAL: Off sedation, eyes closed. + withdraw to painful stimuli bilateral LEs. No spontaneous movement of extremities. PSYCHIATRIC: Off sedation. . Diagnostic Tests Laboratory Laboratory Tests Test 08/20/16 08/21/16 08/21/16 08/21/16 14:30 05:24 05:25 14:25 Sodium Level 157 MEQ/L 156 MEQ/L (136-145) (136-145) Serum Osmolality 353 MOSM/KG 356 MOSM/KG (275-295) (275-295) White Blood Count 11.4 TH/MM3 (4.0-11.0) Red Blood Count 3.85 MIL/MM3 (4.00-5.30) Hemoglobin 11.2 GM/DL (11.6-15.3) Hematocrit 36.3 % (35.0-46.0) Mean Corpuscular Volume 94.2 FL (80.0-100.0) Mean Corpuscular Hemoglobin 29.1 PG (27.0-34.0) Mean Corpuscular Hemoglobin 30.9 % Concent (32.0-36.0) Red Cell Distribution Width 17.1 % (11.6-17.2) Platelet Count 105 TH/MM3 (150-450) Mean Platelet Volume 12.5 FL (7.0-11.0) Potassium Level 4.7 MEQ/L (3.5-5.1) Chloride Level 126 MEQ/L (98-107) Carbon Dioxide Level 17.4 MEQ/L (21.0-32.0) Anion Gap 13 MEQ/L (5-15) Blood Urea Nitrogen 70 MG/DL (7-18) Creatinine 4.87 MG/DL (0.50-1.00) Estimat Glomerular Filtration 10 ML/MIN (>89) Rate Random Glucose 166 MG/DL (74-106) Calcium Level 9.4 MG/DL (8.5-10.1) Phosphorus Level 7.2 MG/DL (2.5-4.9) Magnesium Level 3.0 MG/DL (1.5-2.5) Blood Gas Puncture Site ART LINE ART LINE Blood Gas Patient Temperature 98.6 98.6 Blood Gas HCO3 16 mmol/L 19 mmol/L (22-26) (22-26) Blood Gas Base Excess -10.1 mmol/L -9.1 mmol/L (-2-2) (-2-2) Blood Gas Oxygen Saturation 92 % (90-100) 92 % (90-100) Arterial Blood pH 7.26 7.13 (7.380-7.420) (7.380-7.420) Arterial Blood Partial 36 mmHg (38-42) 59 mmHg (38-42) Pressure CO2 Arterial Blood Partial 74 mmHg 84 mmHg Pressure O2 (61-120) (61-120) Arterial Blood Oxygen Content 15.2 Vol % 14.7 Vol % (12.0-20.0) (12.0-20.0) Arterial Blood 1.1 % (0-4) 0.8 % (0-4) Carboxyhemoglobin Arterial Blood Methemoglobin 1.0 % (0-2) 0.9 % (0-2) Blood Gas Hemoglobin 11.8 G/DL 11.3 G/DL (12.0-16.0) (12.0-16.0) Oxygen Delivery Device VENTILATOR VENTILATOR Blood Gas Ventilator Setting AC/16/500/PEEP10 PRVC16 600 PEEEP10 I Blood Gas Inspired Oxygen 60 % 85 % Test 08/22/16 08/22/16 08/22/16 08/22/16 03:38 05:00 06:29 15:28 White Blood Count 8.6 TH/MM3 (4.0-11.0) Red Blood Count 3.86 MIL/MM3 (4.00-5.30) Hemoglobin 11.4 GM/DL (11.6-15.3) Hematocrit 36.6 % (35.0-46.0) Mean Corpuscular Volume 94.9 FL (80.0-100.0) Mean Corpuscular Hemoglobin 29.6 PG (27.0-34.0) Mean Corpuscular Hemoglobin 31.2 % Concent (32.0-36.0) Red Cell Distribution Width 17.2 % (11.6-17.2) Platelet Count 97 TH/MM3 (150-450) Mean Platelet Volume 11.9 FL (7.0-11.0) Sodium Level 155 MEQ/L (136-145) Potassium Level 5.3 MEQ/L (3.5-5.1) Chloride Level 122 MEQ/L (98-107) Carbon Dioxide Level 23.4 MEQ/L (21.0-32.0) Anion Gap 10 MEQ/L (5-15) Blood Urea Nitrogen 85 MG/DL (7-18) Creatinine 4.94 MG/DL (0.50-1.00) Estimat Glomerular Filtration 9 ML/MIN (>89) Rate Random Glucose 156 MG/DL (74-106) Calcium Level 9.9 MG/DL (8.5-10.1) Phosphorus Level 8.7 MG/DL (2.5-4.9) Magnesium Level 3.2 MG/DL (1.5-2.5) Blood Gas Puncture Site DEVON OSORIO ART LINE Blood Gas Patient Temperature 98.6 98.6 98.6 Blood Gas HCO3 20 mmol/L 19 mmol/L 20 mmol/L (22-26) (22-26) (22-26) Blood Gas Base Excess -7.3 mmol/L -7.3 mmol/L -5.6 mmol/L (-2-2) (-2-2) (-2-2) Blood Gas Oxygen Saturation 87 % (90-100) 88 % (90-100) 87 % (90-100) Arterial Blood pH 7.19 7.22 7.29 (7.380-7.420) (7.380-7.420) (7.380-7.420) Arterial Blood Partial 53 mmHg (38-42) 49 mmHg (38-42) 43 mmHg (38-42) Pressure CO2 Arterial Blood Partial 61 mmHg 62 mmHg 61 mmHg Pressure O2 (61-120) (61-120) (61-120) Arterial Blood Oxygen Content 14.3 Vol % 15.9 Vol % 13.9 Vol % (12.0-20.0) (12.0-20.0) (12.0-20.0) Arterial Blood 1.2 % (0-4) 1.2 % (0-4) 1.2 % (0-4) Carboxyhemoglobin Arterial Blood Methemoglobin 0.9 % (0-2) 0.9 % (0-2) 0.8 % (0-2) Blood Gas Hemoglobin 11.7 G/DL 12.8 G/DL 11.3 G/DL (12.0-16.0) (12.0-16.0) (12.0-16.0) Oxygen Delivery Device VENT VENT VENTILATOR Blood Gas Ventilator Setting SEE COMMENTS SEE COMMENTS PC/AC Blood Gas Inspired Oxygen 100 % 100 % 100 % Test 08/23/16 08/23/16 05:00 05:10 White Blood Count 9.2 TH/MM3 (4.0-11.0) Red Blood Count 3.70 MIL/MM3 (4.00-5.30) Hemoglobin 11.3 GM/DL (11.6-15.3) Hematocrit 34.1 % (35.0-46.0) Mean Corpuscular Volume 92.4 FL (80.0-100.0) Mean Corpuscular Hemoglobin 30.5 PG (27.0-34.0) Mean Corpuscular Hemoglobin 33.0 % Concent (32.0-36.0) Red Cell Distribution Width 15.9 % (11.6-17.2) Platelet Count 97 TH/MM3 (150-450) Mean Platelet Volume 12.5 FL (7.0-11.0) Sodium Level 148 MEQ/L (136-145) Potassium Level 4.8 MEQ/L (3.5-5.1) Chloride Level 116 MEQ/L (98-107) Carbon Dioxide Level 22.5 MEQ/L (21.0-32.0) Anion Gap 10 MEQ/L (5-15) Blood Urea Nitrogen 94 MG/DL (7-18) Creatinine 4.90 MG/DL (0.50-1.00) Estimat Glomerular Filtration 9 ML/MIN (>89) Rate Random Glucose 207 MG/DL (74-106) Serum Osmolality 352 MOSM/KG (275-295) Calcium Level 9.9 MG/DL (8.5-10.1) Phosphorus Level 7.7 MG/DL (2.5-4.9) Magnesium Level 3.1 MG/DL (1.5-2.5) Blood Gas Puncture Site ART LINE Blood Gas Patient Temperature 98.6 Blood Gas HCO3 21 mmol/L (22-26) Blood Gas Base Excess -4.9 mmol/L (-2-2) Blood Gas Oxygen Saturation 89 % (90-100) Arterial Blood pH 7.26 (7.380-7.420) Arterial Blood Partial 48 mmHg (38-42) Pressure CO2 Arterial Blood Partial 66 mmHg Pressure O2 (61-120) Arterial Blood Oxygen Content 14.6 Vol % (12.0-20.0) Arterial Blood 1.1 % (0-4) Carboxyhemoglobin Arterial Blood Methemoglobin 0.9 % (0-2) Blood Gas Hemoglobin 11.7 G/DL (12.0-16.0) Oxygen Delivery Device VENTILATOR Blood Gas Ventilator Setting COMMENT Blood Gas Inspired Oxygen 100 % Result Diagram: 08/23/16 0500 08/23/16 050 Imaging Last Impressions Head CT 08/22/16399 Signed Impressions: Service Date/Time: August 08:37 - CONCLUSION: 1. New left parietal lobe infarct. 2. No change in areas of intracranial hemorrhage. 3. Decrease in size of the ventricles diffusely. Ivan Wilkinson MD Chest X-Ray 08/22/16 0000 Signed Impressions: Service Date/Time: August 00:49 - CONCLUSION: No significant change Tyshawn Benjamin MD Renal Ultrasound 08/19/16 0000 Signed Impressions: Service Date/Time: Friday, August 19, 2016 10:55 - CONCLUSION: Atrophic right kidney with severe abnormal increased echotexture of the renal parenchyma bilaterally indicating medical renal disease. There is no hydronephrosis. Tyshawn Witt MD Neck CTA 08/17/16 0000 Signed Impressions: Service Date/Time: Wednesday, August 17, 2016 10:50 - CONCLUSION: 1. No significant abnormality is identified in the neck arterial vasculature. 2. Right pleural effusion with adjacent compressive atelectasis and/or consolidation. Tyshawn Witt MD Head CTA 08/17/16 0000 Signed Impressions: Service Date/Time: Wednesday, August 17, 2016 10:50 - CONCLUSION: No aneurysm or acute intracranial vascular abnormality is identified. Please refer to noncontrast head CT for description of the posterior fossa and ventricular blood products. Tyshawn Witt MD . Procedures * 08/17/16 - bilateral suboccipital craniectomy, evacuation of intracranial hemorrhage right occipital bur hole for ventriculostomy placement. * 08/17/16 - intubated. . Assessment and Plan Disease Oriented Problem List: (1) Intracranial hemorrhage (2) Hypertensive crisis (3) Rbwsv-cr-[id number] kidney injury (4) Hyperglycemia Symptom Scale: (1) Pain 0-10 Scale: Unable to quantify (2) Dyspnea 0-10 Scale: Unable to quantify Comment: worsening respiratory status. On Vent FiO2 100% and PEEP 10, O2 sats in the 80s for > 24 hours. Pertinent Non-Medical Issues Psychosocial: . No children. Spiritual: [employer]que [employer]oy[employer]. Legal: Patient is currently incapacitated, will likely not regain capacity. According to [place] statutes, health care proxy decision-making falls to the patient's spouse. Ethical issues impacting care: no known concerns at this time. . Important Contacts * Roland Perez, spouse/ HCP: [phone] * Savannah, mother * Tyshawn, brother: [phone] . Prognosis Overall prognosis appears poor for meaningful recovery. Code Status: No Code Plan * Decision Maker: Patient is currently incapacitated, will likely not regain capacity. According to [place] statutes, health care proxy decision-making falls to the patient's spouse, Roland Davis. * NO CODE * Spouse is from [place], I offered translation service he declines stating, he understands [place] (and our conversation) as he has been in [place] for more than 20 years. I am able to understand his wishes and he confirms my understanding of his wishes. * Discussed with nursing staff. * 08/23/16: Heidi Booker LCSW and I met with spouse, Roland at bedside. Medical update provided reviewed worsening condition. He tells me "we should let her go when God says it is her time, that she would not want to live like this." He does not want to consider withdrawal of life support, but elects NO CODE status. He understand clearly she will not survive this hospitalization. He appreciates all staff has done to explain her condition and the care she has received. He is afraid to lose her as he has suffered a lot of lose over the past few years. He declines dish room worker support. He is supported by his son in [place] who he speaks to daily. * SYMPTOMS: Pain: due to recent hemorrhage, surgery, hypertension. Dyspnea: Has underlying COPD, emphysema and asthma, on mech vent. No new medication recommendations at this time. * Palliative care will continue to follow throughout hospital course to assist with symptom management and clarification of goals as needed. . Attestation To help prompt me to consider important information that might be impacting today's encounter and assessment, information from prior notes written by myself or my colleagues may have been "brought forward" into today's note. My signature on this note, however, is an attestation that I personally performed the exam, history, and/or decision-making noted today, and, unless otherwise indicated, the interactions with patient, family, and staff as well as the review of records all occurred today. I also attest that the listed assessment and stated plan reflect my best clinical judgment today based on the combination of historical information, prior notes, and today's exam/ interactions. When time spent is documented, it refers only to time spent today by the signer, or if indicated, combined time spent today by collaborating physician/nurse practitioner. LEONCIO BLACKMAN Aug 23, 2016 10:59
[2016-08-23] MEDS: DEXTROSE 5% IN WATE 1000ML INJ 1,000 ML IV SCH (13:30)
--- NOTE | 2016-08-23 16:22 | HHI.NPPN ---
Subjective History of Present Illness 46-year-old female with past medical history of hypertension, history of thyroid disorder, who was brought in on August 17 with unresponsiveness. I was called to see the patient because of elevated BUN and creatinine. The patient has creatinine of 2.1 on presentation which has been gradually going up. Additional Remarks Patient remain intubated and on the vent, and unresponsive, clinically same, not on any sedation. Objective Data Data 08/22/16 08/23/16 19:00 07:00 Intake Total 1463 ml 3916 ml Output Total 404 ml 978 ml Balance 1059 ml 2938 ml Intake IV Total 1362 ml 2979 ml Tube Feeding 101 ml 817 ml Other 120 ml Output Urine Total 350 ml 875 ml Drainage Total 54 ml 103 ml # Sanitary Pads 1 Pads 1 Pads 1 Pads Vital Signs Date Time Temp Pulse Resp B/P Pulse Ox O2 Delivery O2 Flow Rate FiO2 08/23/16 16:15 86 100 08/23/16 12:14 86 100 08/23/16 07:58 86 100 08/23/16 07:00 85 Mechanical Ventilator 100 08/23/16 06:00 66 08/23/16 04:04 87 100 08/23/16 04:00 66 08/23/16 04:00 97.8 66 26 168/66 87 08/23/16 04:00 100 08/23/16 02:00 66 08/23/16 01:05 88 100 08/23/16 00:00 97.6 59 27 150/65 89 08/23/16 00:00 59 08/23/16 00:00 100 08/22/16 22:00 58 08/22/16 20:00 97.6 58 27 160/66 88 08/22/16 20:00 58 08/22/16 20:00 100 08/22/16 19:55 88 100 08/22/16 19:00 88 Mechanical Ventilator 100 08/22/16 18:00 57 -: 08/23/16 0500 08/23/16 0500 Physical Exam General Appearance Remarks Intubated and unresponsive. Eyes Eye Exam: Pupils Equal Throat Throat Exam: Oral Mucosa Tibes & Moist Neck Neck Exam: Neck Supple Pulmonary Resp Exam: Rhonchi, Decreased Bases, Diminished Breath Sounds, Poor Inspiratory Effort Cardiology CV Exam: Regular, Normal Sinus Rhythm Gastrointestinal/Abdomen GI Exam: Soft, Non-Tender, Bowel Sounds Present, Distended Extremeties Extremities Exam: Moderate Edema, Pitting Edema Neurologic Neuro Exam: Unresponsive Assessment/Plan Assessment Summary: KENYON/Acute Renal Failure Electrolyte Assessment: Hypernatremia, Metabolic Acidosis Problem List: (1) Hypertensive crisis (2) Intracranial hemorrhage (3) Hyperglycemia (4) Hypoxemia (5) Respiratory failure (6) Fwwbj-sg-crzkqlo kidney injury Plan Patient has been non oliguric. BP is better, Urine out put is adequate. Na. is improving , now 148, Creatinine almost same. Started on D5W, also on NaHco3. No urgent need of Dialysis. Follow urine out put, and use diuretics as needed. Prognosis is poor, now No Code. Tejas Spencer MD Aug 23, 2016 16:22
[2016-08-24] VITALS (8 sets, daily range): BP systolic 106–156; BP diastolic 54–62; PULSE 58–64; RESP 23–28; TEMP 97.6–97.8; O2SAT 69–86
[2016-08-24] MEDS: DEXTROSE 5% IN WATE 1000ML INJ 1,000 ML IV SCH (03:36)
[2016-08-24] MEDS: CHLORHEXIDINE GLUCONATE 2 % 1 PACK (2 CLOTHS) TOP SCH (03:38)
[2016-08-24] MEDS: cloNIDine HCL 0.1 MG TAB PO SCH (05:51)
[2016-08-24] MEDS: hydrALAZINE HCL 100 MG TAB PO SCH (05:51)
[2016-08-24] MEDS: INSULIN NovoLIN REGULAR SUPPLEMENTAL SCALE SQ SCH ×2 (06:00)
[2016-08-24 06:19] LABS: HEMATOCRIT 30.6 % (35.0-46.0); MEAN CELL VOLUME 93.1 FL (80.0-100.0); MEAN CORPUSCULAR HEMOGLOBIN 30.8 PG (27.0-34.0); MEAN CORPUSCULAR HGB CONC 33.1 % (32.0-36.0); PLATELET COUNT 85 TH/MM3 (150-450); RED BLOOD COUNT 3.29 MIL/MM3 (4.00-5.30); RED CELL DISTRIBUTION WIDTH 15.8 % (11.6-17.2); WHITE BLOOD COUNT 8.3 TH/MM3 (4.0-11.0)
[2016-08-24 06:23] LABS: REVIEW FLAG FINAL
[2016-08-24 06:42] LABS: BICARBONATE 25.5 MEQ/L (21.0-32.0); MAGNESIUM 3.3 MG/DL (1.5-2.5); POTASSIUM 4.8 MEQ/L (3.5-5.1)
--- NOTE | 2016-08-24 07:46 | HHI.CCPN ---
Subjective Remarks/Hospital Course Hospital Course: This is a 46yF with history of "thyroid problems" and hypertension per her prior records from 2013. She presents after her family called 911 when they found her unresponsive this morning. Per EMS, her GCS was 3. She was intubated on scene. She arrives to the emergency department with a blood pressure of 330s/ 220s. Head CT demonstrates large right cerebellar intraparenchymal hemorrhage with extension into the ventricular system and early posterior fossa herniation. The patient is unresponsive and additional history is unobtainable. Subjective: 08/18: s/p decompressive posterior fossa craniectomy yesterday. overnight severely hypertensive, requiring cardene, labetalol, hydralazine, and low dose propofol. best neuro exam for RN: weakly w/d lower extremities, pupils reactive , +cough. this morning, Cr significantly elevated, likely secondary to acute illness and contrast load. net +3L/24h. 08/19: persistently encephalopathic. also very hypertensive, requiring cardene at 15 mg/hr as well as prn hydralazine/labetalol to keep sbp < 140. still with + cough, but minimal neuro exam. net +6.8L/24h, but KENYON continues to worsen. may have some underlying chronic renal insufficiency, with +proteinuria on admission , but unknown. Also has gram negative stanley UTI on admission. 08/20: Persistent metabolic acidosis from renal failure, etc. No neurological improvement. Ceftriaxone for UTI. 08/21: We have concentrated her serum more than adequately and at this point it is probably impairing renal function. Though reluctantly, I will start some free water iv and follow her sodium very closely, assuring the decrease is slow and limited to around the 144 - 148 range. 08/22: Renal function unchanged, no improvement. Patient is minimally responsive. New left parietal lobe infarction today on head CT. 08/23: No neurological improvement. Devastating bleed. Gas exchange very poor and deteriorating. 08/24: Continued deterioration and worsening gas exchange. Flaccid in 4 limbs. No responses. Objective Vital Signs Date Time Temp Pulse Resp B/P Pulse Ox O2 Delivery O2 Flow Rate FiO2 08/24/16 06:45 100 08/24/16 06:00 63 08/24/16 04:05 84 08/24/16 04:00 97.6 24 156/62 08/23/16 19:00 Mechanical Ventilator Intake and Output 08/23/16 08/23/16 08/24/16 08:00 16:00 00:00 Intake Total 2143 ml 2437 ml 1674 ml Output Total 582 ml 345 ml 848 ml Balance 1561 ml 2092 ml 826 ml Result Diagram: 08/24/16 0600 08/24/16 0600 Imaging Last Impressions Head CT 08/17/16 0754 Signed Impressions: Service Date/Time: Wednesday, August 17, 2016 09:45 - CONCLUSION: 1. There is acute intraparenchymal hemorrhage in the right cerebellum measuring approximately 5.4 x 4 centimeters. The blood products extend into the ventricular system causing mild dilatation of the ventricles. 2. Mass effect from the posterior fossa hemorrhage results in local mass effect and likely upward transtentorial herniation and some degree of tonsillar herniation. These findings were relayed to Dr. Paredes via telephone at 9: 58 AM. Tyshawn Witt MD Chest X-Ray 08/17/16 0754 Signed Impressions: Service Date/Time: Wednesday, August 17, 2016 08:19 - CONCLUSION: Severe air space consolidation in the right lower lung zone with possible mild airspace opacity in the upper lung zones bilaterally. This could represent an infectious process in the appropriate clinical setting. Alternately, aspiration could have this appearance. Endotracheal tube is in appropriate position. Tyshawn Witt MD Neck CTA 08/17/16 0000 Signed Impressions: Service Date/Time: Wednesday, August 17, 2016 10:50 - CONCLUSION: 1. No significant abnormality is identified in the neck arterial vasculature. 2. Right pleural effusion with adjacent compressive atelectasis and/or consolidation. Tyshawn Witt MD Head CTA 08/17/16 0000 Signed Impressions: Service Date/Time: Wednesday, August 17, 2016 10:50 - CONCLUSION: No aneurysm or acute intracranial vascular abnormality is identified. Please refer to noncontrast head CT for description of the posterior fossa and ventricular blood products. Tyshawn Witt MD Objective Remarks GENERAL: Middle-aged female, lying in bed, intubated, unresponsive, critically ill HEENT: Pupils 2 mm, sluggishly reactive, conjugate. Normocephalic. dressing to occiput. EVD in place, sanguinous output. Mucous membranes are moist NECK: Trachea is midline. No JVD. CHEST: Endotracheal tube in place. Equal chest rise. Clear to auscultation. PCV/550/18/8/40% left SC TLC clean and dry, dressing intact. CARDIOVASCULAR: Normal rate, regular rhythm. Sinus by telemetry. ABDOMEN: Obese, soft, nontender, nondistended. No guarding. BS active. MUSCULOSKELETAL: Distal pulses 2+. No peripheral edema. right radial arterial line in place, dressing intact. NEUROLOGICAL: RASS -5. GCS 4T. - gag. - cough. A/P Assessment and Plan Assessment: 46yF with large posterior fossa intra-parenchymal hemorrhage with extension into the ventricles and initial evidence of upwards tentorial herniation. She also has associated organ dysfunction including hypertensive emergency, acute kidney injury. Her ICH score is 5, predicting essentially 100 % mortality rate. She is now s/p decompressive posterior fossa craniectomy . will continue to be aggressive for now. I have spoken with her and updated him that her prognosis is poor, and she may never wake up again. We will consult palliative care. Her KENYON continues to worsen, will send urine studies, renal ultrasound. get pulse contour analysis to ensure adequate cardiac output and oxygen delivery to the kidneys. Her acidosis is primarily non-gapped likely secondary to renal tubular acidosis and hyperchloremic acidosis. Plan by systems: Neurologic: Large right cerebellar intraparenchymal hemorrhage Status post posterior fossa decompressive craniectomy 08/17 Frequent neuro checks Hyperosmolar therapy Elevated Head of bed Avoidance of hypercarbia and hypoxia d/c 3% at 30 mL/hr Serial sodiums Neurosurgery: Dr. Garza --Continue free water slowly Respiratory: Acute hypoxic and hypercarbic respiratory failure Does not meet SBT criteria given intracranial hemorrhage and cerebral edema Wean FiO2 for goal SPO2 greater than 92% Avoid hypercarbia, hypoxia --daily abg's, goal paco2 30-40. End-tidal CO2 monitoring Vent bundle Nebs Cardiovascular: Hypertensive emergency Nicardipine, labetalol, hydralazine as needed for goal SBP less than 150 Renal: Acute kidney injury- worsening. Possible Chronic Renal Insufficiency Proteinuria -- Strict I/Os d/c NS @ 120cc/hr --pulse contour analysis to ensure adequate oxygen delivery -- urine Na, Cr, eos, u/a with microscopy, renal ultrasound FEN/GI: Intravascular volume depletion- resolved. TF, Jevity 1.5, nutrition consult for goals. Normal saline at 120 cc/hr Hold on ICU electrolyte protocol given renal function. --daily BMP, phos Heme/ID: Urinary Tract Infection- uncomplicated, presented on admission, not catheter associated. -- u/a positive on admission -- start Rocephin 1gm iv q24h and await speciation. 3 days total duration should be adequate for uncomplicated UTI (anticipated stop date 08/22) Endocrine: Hyperglycemia of critical illness -- SSI, medium scale, every 6 Prophylaxis: GI Prophylaxis Protonix IV every 24 hours DVT Prophylaxis -- SCDs Holding pharmacologic DVT prophylaxis in the setting of acute head bleed Lines: Radial arterial line placed emergency department 08/17 left SC tlc 08/17 Lopez Dispo: Remain in the ICU. She remains critically ill. No improvement. Overall impression: Unresponse after posterior fossa bleed requiring decompression. Remains critically ill and neurologically unstable. Oxygenation deteriorating. Clinically worse. Hypovascularity left lung may represent PE but she is not a candidate for treatment. She will not recover from this illness. Harley Casey MD Aug 24, 2016 07:46
[2016-08-24] MEDS: LABETALOL HCL 200 MG TAB PO SCH (08:00)
[2016-08-24] MEDS: CHLORHEXIDINE 0.12% (ORAL KIT) 15 ML CUP MT SCH (08:00)
--- NOTE | 2016-08-24 08:53 | HHI.NPPN ---
Objective Data Data 08/23/16 08/24/16 19:00 07:00 Intake Total 2437 ml 3139 ml Output Total 345 ml 1329 ml Balance 2092 ml 1810 ml Intake IV Total 1854 ml 2335 ml Tube Feeding 583 ml 684 ml Other 120 ml Output Urine Total 275 ml 1225 ml Drainage Total 70 ml 104 ml Vital Signs Date Time Temp Pulse Resp B/P Pulse Ox O2 Delivery O2 Flow Rate FiO2 08/24/16 08:05 75 100 08/24/16 06:45 100 08/24/16 06:00 63 08/24/16 04:05 84 100 08/24/16 04:00 60 08/24/16 04:00 97.6 60 24 156/62 86 08/24/16 04:00 100 08/24/16 02:00 58 08/24/16 00:32 84 100 08/24/16 00:00 59 08/24/16 00:00 97.6 59 23 133/56 84 08/24/16 00:00 100 08/23/16 22:00 59 08/23/16 21:31 84 100 08/23/16 20:00 97.8 56 25 130/54 84 08/23/16 20:00 56 08/23/16 20:00 100 08/23/16 19:00 84 Mechanical Ventilator 100 08/23/16 18:00 60 08/23/16 16:15 86 100 08/23/16 16:00 97.8 60 25 148/60 86 08/23/16 16:00 60 08/23/16 16:00 100 08/23/16 14:00 60 08/23/16 12:14 86 100 08/23/16 12:00 100 08/23/16 12:00 97.7 58 24 146/60 86 08/23/16 12:00 58 08/23/16 10:00 59 -: 08/24/16 0600 08/24/16 0600 Assessment/Plan Assessment Summary: KENYON/Acute Renal Failure Electrolyte Assessment: Hypernatremia, Metabolic Acidosis Problem List: (1) Hypertensive crisis (2) Intracranial hemorrhage (3) Hyperglycemia (4) Hypoxemia (5) Respiratory failure (6) Oomlk-us-ohkyueb kidney injury Plan patient had passed by the time I came to see her. Burke Bravo MD Aug 24, 2016 08:53 Throat Throat Exam: Oral Mucosa [place] & Moist Neck Neck Exam: Neck Supple Pulmonary Resp Exam: Rhonchi, Decreased Bases, Diminished Breath Sounds Cardiology CV Exam: Regular, Normal Sinus Rhythm Gastrointestinal/Abdomen GI Exam: Soft, Non-Tender, Bowel Sounds Present, Distended Extremeties Extremities Exam: Moderate Edema, Pitting Edema Neurologic Neuro Exam: Unresponsive Assessment/Plan Assessment Summary: KENOYN/Acute Renal Failure Electrolyte Assessment: Hypernatremia, Metabolic Acidosis Problem List: (1) Hypertensive crisis (2) Intracranial hemorrhage (3) Hyperglycemia (4) Hypoxemia (5) Respiratory failure (6) Mcamx-tv-etpdswa kidney injury Plan Patient has been non oliguric. BP is better, Non oliguric. Slight improvement in creatinine, but positive fluid balance. Discontinue Sodium bicarbonate drip. Consider diuretics. Dialysis will not change the outcome. Palliative care note reviewed. Critical care note reviewed. She appears to be terminally ill at this point. Burke Bravo MD Aug 24, 2016 08:53
[2016-08-24] MEDS: amLODIPine BESYLATE 5 MG TAB PO SCH (09:00)
[2016-08-24] MEDS: DOCUSATE SODIUM 50 MG/SENNA 8.6 MG TAB PO SCH (09:00)
[2016-08-24] MEDS: PANTOPRAZOLE SODIUM 40 MG VIAL IV SCH (09:21)
--- NOTE | 2016-08-24 11:30 | DEATH SUM ---
Summary Demographics Date Pronounced : Aug 24, 2016 Time Of : 09:52 Pronounced By: Chata Casey M.D. Preliminary Cause of : Other (Intracranial Hemorrhage) Harley Casey MD Aug 24, 2016 11:30
--- NOTE | 2016-08-24 11:36 | HHI.DS ---
Discharge Summary Admission Date August 17, 2016 at 10:13 Discharge Date: Aug 24, 2016 Admitting Diagnosis large posterior fossa hemmorhage, hypertensive emergency Procedures Posterior fossa decompressive craniotomy 08/17/16. Mechanical Ventilation. Brief History This is a 46yF with history of "thyroid problems" and hypertension per her prior records from 2013. She presents after her family called 911 when they found her unresponsive this morning. Per EMS, her GCS was 3. She was intubated on scene. She arrives to the emergency department with a blood pressure of 330s/ 220s. Head CT demonstrates large right cerebellar intraparenchymal hemorrhage with extension into the ventricular system and early posterior fossa herniation. The patient is unresponsive and additional history is unobtainable. CBC/BMP: 08/24/16 0600 08/24/16 0600 Significant Findings Laboratory Tests Test 08/21/16 08/22/16 08/22/16 08/22/16 14:25 03:38 05:00 06:29 Blood Gas HCO3 19 mmol/L 20 mmol/L 19 mmol/L (22-26) (22-26) (22-26) Blood Gas Base Excess -9.1 mmol/L -7.3 mmol/L -7.3 mmol/L (-2-2) (-2-2) (-2-2) Arterial Blood pH 7.13 7.19 7.22 (7.380-7.420) (7.380-7.420) (7.380-7.420) Arterial Blood Partial 59 mmHg (38-42) 53 mmHg (38-42) 49 mmHg (38-42) Pressure CO2 Blood Gas Hemoglobin 11.3 G/DL 11.7 G/DL (12.0-16.0) (12.0-16.0) Red Blood Count 3.86 MIL/MM3 (4.00-5.30) Hemoglobin 11.4 GM/DL (11.6-15.3) Mean Corpuscular Hemoglobin 31.2 % Concent (32.0-36.0) Platelet Count 97 TH/MM3 (150-450) Mean Platelet Volume 11.9 FL (7.0-11.0) Sodium Level 155 MEQ/L (136-145) Potassium Level 5.3 MEQ/L (3.5-5.1) Chloride Level 122 MEQ/L (98-107) Blood Urea Nitrogen 85 MG/DL (7-18) Creatinine 4.94 MG/DL (0.50-1.00) Estimat Glomerular Filtration 9 ML/MIN (>89) Rate Random Glucose 156 MG/DL (74-106) Phosphorus Level 8.7 MG/DL (2.5-4.9) Magnesium Level 3.2 MG/DL (1.5-2.5) Blood Gas Oxygen Saturation 87 % (90-100) 88 % (90-100) Test 08/22/16 08/23/16 08/23/16 08/23/16 15:28 05:00 05:10 18:51 Blood Gas HCO3 20 mmol/L 21 mmol/L (22-26) (22-26) Blood Gas Base Excess -5.6 mmol/L -4.9 mmol/L (-2-2) (-2-2) Blood Gas Oxygen Saturation 87 % (90-100) 89 % (90-100) Arterial Blood pH 7.29 7.26 (7.380-7.420) (7.380-7.420) Arterial Blood Partial 43 mmHg (38-42) 48 mmHg (38-42) Pressure CO2 Blood Gas Hemoglobin 11.3 G/DL 11.7 G/DL (12.0-16.0) (12.0-16.0) Red Blood Count 3.70 MIL/MM3 (4.00-5.30) Hemoglobin 11.3 GM/DL (11.6-15.3) Hematocrit 34.1 % (35.0-46.0) Platelet Count 97 TH/MM3 (150-450) Mean Platelet Volume 12.5 FL (7.0-11.0) Sodium Level 148 MEQ/L (136-145) Chloride Level 116 MEQ/L (98-107) Blood Urea Nitrogen 94 MG/DL (7-18) Creatinine 4.90 MG/DL (0.50-1.00) Estimat Glomerular Filtration 9 ML/MIN (>89) Rate Random Glucose 207 MG/DL (74-106) Serum Osmolality 352 MOSM/KG 350 MOSM/KG (275-295) (275-295) Phosphorus Level 7.7 MG/DL (2.5-4.9) Magnesium Level 3.1 MG/DL (1.5-2.5) Test 6/3/17 06:00 Red Blood Count 3.29 MIL/MM3 (4.00-5.30) Hemoglobin 10.1 GM/DL (11.6-15.3) Hematocrit 30.6 % (35.0-46.0) Platelet Count 85 TH/MM3 (150-450) Mean Platelet Volume 12.9 FL (7.0-11.0) Sodium Level 147 MEQ/L (136-145) Chloride Level 112 MEQ/L (98-107) Blood Urea Nitrogen 103 MG/DL (7-18) Creatinine 4.73 MG/DL (0.50-1.00) Estimat Glomerular Filtration 10 ML/MIN (>89) Rate Random Glucose 170 MG/DL (74-106) Serum Osmolality 347 MOSM/KG (275-295) Phosphorus Level 6.9 MG/DL (2.5-4.9) Magnesium Level 3.3 MG/DL (1.5-2.5) Imaging CT Head: Posterior fossa ICH. PE at Discharge Hospital Course Hospital Course: This is a 46yF with history of "thyroid problems" and hypertension per her prior records from 2013. She presents after her family called 911 when they found her unresponsive this morning. Per EMS, her GCS was 3. She was intubated on scene. She arrives to the emergency department with a blood pressure of 330s/ 220s. Head CT demonstrates large right cerebellar intraparenchymal hemorrhage with extension into the ventricular system and early posterior fossa herniation. The patient is unresponsive and additional history is unobtainable. Subjective: 08/18: s/p decompressive posterior fossa craniectomy yesterday. overnight severely hypertensive, requiring cardene, labetalol, hydralazine, and low dose propofol. best neuro exam for RN: weakly w/d lower extremities, pupils reactive , +cough. this morning, Cr significantly elevated, likely secondary to acute illness and contrast load. net +3L/24h. 08/19: persistently encephalopathic. also very hypertensive, requiring cardene at 15 mg/hr as well as prn hydralazine/labetalol to keep sbp < 140. still with + cough, but minimal neuro exam. net +6.8L/24h, but KENYON continues to worsen. may have some underlying chronic renal insufficiency, with +proteinuria on admission , but unknown. Also has gram negative stanley UTI on admission. 08/20: Persistent metabolic acidosis from renal failure, etc. No neurological improvement. Ceftriaxone for UTI. 08/21: We have concentrated her serum more than adequately and at this point it is probably impairing renal function. Though reluctantly, I will start some free water iv and follow her sodium very closely, assuring the decrease is slow and limited to around the 144 - 148 range. 08/22: Renal function unchanged, no improvement. Patient is minimally responsive. New left parietal lobe infarction today on head CT. 08/23: No neurological improvement. Devastating bleed. Gas exchange very poor and deteriorating. 08/24: Continued deterioration and worsening gas exchange. Flaccid in 4 limbs. No responses. Severe hypoxemia -> cardiac standstill -> at 0952. Pt Condition on Discharge: Deteriorating Discharge Instructions Additional Information Family at bedside at time of . Patient was DNR status. Harley Casey MD Aug 24, 2016 11:36
== END 2016-08-24 11:48 | disposition expired | DRG 23 ==
LOC: NEPE 07:39 → NEDA 10:13 → MERGE 10:13 → N03A 10:30
PROVIDERS: ADMIT Internal Medicine Critical Care Medicine; ATTEND Internal Medicine Critical Care Medicine
PROC: 00C00ZZ Extirpation of Matter from Brain, Open Approach (ICD-10-PCS; 2016-08-17)
PROC: 009630Z Drainage of Cerebral Ventricle with Drainage Device, Percutaneous Approach (ICD-10-PCS; 2016-08-17)
PROC: 0T9B70Z Drainage of Bladder with Drainage Device, Via Natural or Artificial Opening (ICD-10-PCS; 2016-08-17)
PROC: 05H633Z Insertion of Infusion Device into Left Subclavian Vein, Percutaneous Approach (ICD-10-PCS; 2016-08-17)
PROC: 5A1955Z Respiratory Ventilation, Greater than 96 Consecutive Hours (ICD-10-PCS; principal; 2016-08-17 12:42)
DX: I61.4 Nontraumatic intracerebral hemorrhage in cerebellum (principal); N17.0 Acute kidney failure with tubular necrosis; G93.5 Compression of brain; J96.01 Acute respiratory failure with hypoxia; J96.02 Acute respiratory failure with hypercapnia; J90 Pleural effusion, not elsewhere classified; I60.8 Other nontraumatic subarachnoid hemorrhage; G93.40 Encephalopathy, unspecified; E87.0 Hyperosmolality and hypernatremia; G93.6 Cerebral edema; I16.9 Hypertensive crisis, unspecified; I16.1 Hypertensive emergency; J98.11 Atelectasis; E87.2 Acidosis; J44.9 Chronic obstructive pulmonary disease, unspecified; N18.9 Chronic kidney disease, unspecified; R73.9 Hyperglycemia, unspecified; E07.9 Disorder of thyroid, unspecified; I12.9 Hypertensive chronic kidney disease with stage 1 through stage 4 chronic kidney disease, or unspecified chronic kidney disease; E86.1 Hypovolemia; G93.89 Other specified disorders of brain; F17.210 Nicotine dependence, cigarettes, uncomplicated; Z51.5 Encounter for palliative care; J45.909 Unspecified asthma, uncomplicated; Z86.73 Personal history of transient ischemic attack (TIA), and cerebral infarction without residual deficits; D25.9 Leiomyoma of uterus, unspecified; Z82.49 Family history of ischemic heart disease and other diseases of the circulatory system; Z82.3 Family history of stroke; E87.5 Hyperkalemia; I46.9 Cardiac arrest, cause unspecified; N25.89 Other disorders resulting from impaired renal tubular function; B96.89 Other specified bacterial agents as the cause of diseases classified elsewhere; Z66 Do not resuscitate
CPT/HCPCS: 36556; 36600; 36620; 51702; 70450; 70496; 70498; 71010; 76775; 76937; 80048; 80053; 80307; 81001; 82550; 82552; 82570; 82805; 82948; 83735; 83880; 83930; 84100; 84295; 84300; 84484; 84703; 85025; 85027; 85610; 85730; 86850; 86900; 86901; 87077; 87086; 87186; 87205; 87641; 88304; 93005; 94002; 94003; 94640; 94664; 94770; 96374; 96375; C1713; C9113; J0171; J0360; J0461; J0696; J1580; J1940; J2150; J2250; J3010; J3370; J7030; J7040; J7050; J7070; J7120; Q9967